=== PATIENT | female | born 1985 | race Caucasian/White ===

== ENCOUNTER → 2017-02-08 | Outpatient (CLI) | payer BC ==
[~2017-02-08] MED LIST: HYDR-3989 PO; IBUP-1547 PO
--- NOTE | 2017-02-08 16:18 | DI ---
Indication: ITS.REASON: Z33.1 state, incidental PROCEDURE: US OB <14 WKS WITH TRANSVAG: Encounter: Initial Age by LMP is 9 weeks and 4 days. This correlates to an NICOL of September 09, 2017. Comparison: None PROCEDURE: US OB <14 WKS WITH TRANSVAG: Technique: Transabdominal and transvaginal pelvic sonographic imaging was performed. Findings: Imaging demonstrates an intrauterine gestational sac without pole or yolk sac. Both ovaries were identified. The left measures 2.9 x 2.8 x 3.3 cm, and the right 2.9 x 2.1 x 2.2 cm. There is a probable corpus luteum in the right ovary and a small cyst or follicle on the left ovary No abnormal adnexal mass. No free fluid. biometry: Mean sac diameter 3.23 cm: 8 weeks and 4 days. Impression: Findings of a spontaneous with an estimated gestational age of 8 weeks and 4 days by ultrasound. No sonographic findings to suggest an ectopic . .
== END ==
LOC: IMA 15:28
PROVIDERS: ATTEND Obstetrics & Gynecology
DX: O03.9 Complete or unspecified spontaneous abortion without complication (principal); Z3A.08 8 weeks gestation of pregnancy

== ENCOUNTER 2017-04-01 06:02 | Day surgery (SDC) | payer BC ==
[~2017-04-01] VITALS: Ht 165.1 cm; Wt 82.1 kg
[~2017-04-01 06:02] MED LIST changes: +BUPIVACAINE 0.25%/EPI 1:200,000 30ml SDV ONE; +FENTANYL 100mcg/2ml INJECTION ONE; +GLYCOPYRROLATE 0.4mg/2ml INJECTION ONE; -HYDR-3989 PO; -IBUP-1547 PO; +LIDOCAINE 2% (20mg/ml) 5ml PF SDV ONE; +ONDANSETRON 4mg/2ml INJECTION ONE; +PREN1TAB73 PO; +PROPOFOL 500mg 50 ML IV ONE
[2017-04-01 06:16] VITALS: BP 103/57; PULSE 52; RESP 13; TEMP 98.7; O2SAT 97; Ht 165.1 cm; Wt 82.1 kg
[2017-04-01 06:30] LABS: BASOPHILS % (AUTO) 0.6 % (0-2); EOSINOPHILS # (AUTO) 0.2 T/MM3 (0-0.5); EOSINOPHILS % (AUTO) 4.5 % (0-4); HCT - HEMATOCRIT 36.3 % (36-46); HGB - HEMOGLOBIN 12.3 GM/DL (12-16); LYMPHOCYTES # (AUTO) 1.4 T/MM3 (1-4.8); LYMPHOCYTES % (AUTO) 38.6 % (23-45); MEAN CORPUSCULAR HGB 29.1 UUG (26-34); MEAN CORPUSCULAR HGB CONC(MCHC 33.9 GM/DL (31-37); MEAN CORPUSCULAR VOLUME 85.8 UM3 (80-100); MEAN PLATELET VOLUME 10.2 UM3 (9.4-12.4); MONOCYTES # (AUTO) 0.3 T/MM3 (0-0.8); MONOCYTES % (AUTO) 8.7 % (0-9.0); NEUTROPHILS #(AUTO)-ABSOLUTE 1.7 T/MM3 (1.8-7.7); NEUTROPHILS % (AUTO) 47.6 % (33-66); RED BLOOD COUNT 4.23 M/MM3 (4.00-5.20); WBC - WHITE BLOOD COUNT 3.6 T/MM3 (4.5-11.0)
[2017-04-01 06:31] LABS: BLOOD, URINE 3+ (NEGATIVE); COLOR,URINE AMBER (YELLOW); LEUKOCYTE ESTERASE ,URINE NEGATIVE (NEGATIVE); NITRITE,URINE NEGATIVE (NEGATIVE)
[2017-04-01 06:33] VITALS: PULSE 56; RESP 14
[2017-04-01 06:42] LABS: BACTERIA,URINE 4+ (NEGATIVE); RBC,URINE TNTC /HPF (0-3); WBC,URINE NONE SEEN /HPF (0-5)
[2017-04-01] MEDS ORDERED: LIDOCAINE 1% (10mg/ml) 2ml SDV INJ ONE (07:00)
[2017-04-01] MEDS ORDERED: LR 1,000 ML IV PRN (07:00)
--- NOTE | 2017-04-01 07:27 | ANESPREOP ---
Anesthesia Record Date and Time DATE: 04/01/17 TIME: 07:26 Pre-Op Diagnosis missed ab Proposed Surgical Procedure DILITATION AND CURETTAGE MISSED AB Allergies: Coded Allergies: No Known Allergies (Unverified , 03/31/17) Ht/Wt/BMI Height: 5 ' 5.00 " Weight: 82.100 kg BMI: 30.1 kg/m2 Vital Signs Date Time Temp Pulse Resp B/P Pulse Ox O2 Delivery O2 Flow Rate FiO2 04/01/17 06:33 56 14 04/01/17 06:16 98.7 103/57 97 Room Air Medications Inpatient Medications Current Medications Medications (Trade) Dose Ordered Sig/Laurie Start Time Stop Time Status Last Admin Dose Admin Lactated Ringer's (Lactated Ringers) 1,000 ml @ 50 mls/hr Q20H PRN 04/01/17 07:00 04/01/17 06:47 50 MLS/HR Pnv95/Ferrous Fumarate/FA ( Tablet) 1 Each Tablet, 1 TAB PO DAILY, ( Reported) Last Taken: on 03/31/171999 Currently on Beta Garo: No Medical/Surgical History Anesthesia PMH: Denies: *Diabetes, Anesthesia Reactions (NO AIRWAY ISSUES), Arthritis, CVA/Stroke/TIA, Cancer, Clotting Problems, Glaucoma, Malignant Hyperthermia, Renal Disease, Seizures, Sleep Apnea, Thyroid Disease Smoking Status: Never smoker Has pt. smoked today?: No Use Chewing Tobacco?: No Second Hand Exposure: No Substance Use Type: does not use Substance last used: unknown Alcohol Intake: none Last Drink: unknown HX of Last Menstrual Period: 2016 Past Surgical History Orthopedic Surgeries: Abdominal Surgeries: Genitourinary Surgeries: Cardiac Surgeries: Endocrine Surgeries: Reproductive Surgeries: Yes - Neurological Surgeries: Ear Surgeries: Nose Surgeries: Throat Surgeries: Other Surgeries: Yes - Anesthesia Adverse Reactions: FOUND none Family Hx of Anesthesia Advers: none Hx of Motion Sickness: Yes Pertinent Findings Laboratory Tests 04/01/17 06:24 EKG Rhythm: Sinus Rhythm Physical Exam Respiratory: Bilat breath sounds equal, Lungs clear Cardiovascular: FOUND Regular rate, rhythm, FOUND No murmur Airway Assessment Mallampati Score: I TMD: 3 Fingerbreadths Neck Extension: Good Overall Assessment: No Airway Concerns ASA: 1 Plan Anesthesia Plan: TIVA Discussion Discussed risks/options/alternatives of anesthesia and questions answered. Patient consents. Nursing pain assessment noted. Present: Spouse Attestation Statement Prior to the delivery of any anesthetic medication, I examined the patient, developed the plan, obtained the patient's consent and discussed the risk and benefits of the procedure with the patient/guardian. ANEESH STRICKLAND CRNA April 01, 2017 07:27
[2017-04-01] MEDS ORDERED: MIDAZOLAM 2mg/2ml INJECTION ONE (07:33)
[2017-04-01] MEDS ORDERED: ONDANSETRON 4mg/2ml INJECTION ONE (07:34)
[2017-04-01] MEDS ORDERED: LACRI-LUBE EYE OINT 3.5 G TUBE ONE (07:34)
[2017-04-01] MEDS ORDERED: GLYCOPYRROLATE 0.4mg/2ml INJECTION ONE (07:34)
[2017-04-01] MEDS ORDERED: FENTANYL 100mcg/2ml INJECTION ONE ×2 (07:35→07:44)
[2017-04-01] MEDS ORDERED: VECURONIUM 10mg/10ml INJECTION IV ONE (07:35)
[2017-04-01] MEDS ORDERED: LIDOCAINE 2% (20mg/ml) 5ml PF SDV ONE (07:35)
[2017-04-01] MEDS ORDERED: METOCLOPRAMIDE 10mg/2ml INJECTION IV PRN (08:00)
[2017-04-01] MEDS ORDERED: MORPHINE SULFATE 4 MG SYRINGE IV PRN (08:00)
[2017-04-01] MEDS ORDERED: ONDANSETRON 4mg/2ml INJECTION IV PRN (08:00)
[2017-04-01] MEDS ORDERED: FENTANYL 100mcg/2ml INJECTION IV PRN (08:00)
[2017-04-01] MEDS ORDERED: HYDROCODONE/APAP 5 mg/325 mg TABLET PO PRN (08:00)
--- NOTE | 2017-04-01 08:00 | GYNOPNOTE1 ---
[employer] Postoperative Note Date of Operation: 04/01/17 Preoperative Diagnosis: Incomplete Postoperative Diagnosis: Same as Preoperative Procedure: Suction D&C Surgeon: Anh Nixon MD Anesthesia Provider: Brayden Joshi CRNA Anesthesia Type: TIVA Comments EBL minimal ANH NIXON MD April 01, 2017 08:00
[2017-04-01] MEDS ORDERED: KETOROLAC 30mg/ml INJECTION ONE (08:03)
[2017-04-01 08:07] VITALS: BP 99/54; PULSE 82; RESP 16; TEMP 97.6; O2SAT 98
[2017-04-01 08:22] VITALS: BP 99/56; PULSE 81; RESP 16; O2SAT 94
--- NOTE | 2017-04-01 08:28 | ANESPO ---
Post-Op Note Date 04/01/17 Time: 08:27 Status Pt Participated in Evaluation: Pt participated in person Vital Signs Date Time Temp Pulse Resp B/P Pulse Ox O2 Delivery O2 Flow Rate FiO2 04/01/17 08:22 81 16 99/56 94 Room Air 04/01/17 08:07 97.6 5.00 Respiratory Function: Airway patent, Regular respirations Cardiovascular Function: Regular pulse Mental Status: Alert/oriented Pain Level Intensity: 0 (0) Hydration: Taking po fluids, IV infusing Complications during Recovery None apparent Post-Anesthesia Notes pt. inraj. well Follow-Up Instructions Instructions Per Surgeon Additional Information none ZACH AVENDANO CRNA April 01, 2017 08:28
[2017-04-01 08:37] VITALS: BP 97/55; PULSE 70; RESP 16; TEMP 97.1; O2SAT 95
[2017-04-01 08:52] VITALS: BP 99/57; PULSE 54; RESP 14; O2SAT 98
--- NOTE | 2017-04-01 11:30 | OPNOTEF ---
DATE OF PROCEDURE 04/01/2017 PREOPERATIVE DIAGNOSIS First trimester incomplete . POSTOPERATIVE DIAGNOSIS First trimester incomplete . PROCEDURE Suction D&C. SURGEON Anh Lilly MD ANESTHESIA TIVA - Brayden Joshi CRNA EBL: Minimal DESCRIPTION OF PROCEDURE Mrs. Judd was brought to the OR and placed on the OR table in a comfortable supine position. She was given IV analgesia with good airway control. She was then placed in the standard lithotomy position and I performed a bimanual exam. The perineum and vagina were prepped and draped in the usual sterile fashion. The bladder was drained with in-and-out catheter. The cervix was visualized with a freeway speculum. It was grasped with an Allis clamp. The uterine cavity sounded to a depth of 12 cm. The cervix was then serially dilated until the 10 curved Wolof suction curette would fit. First we sharply curetted in all four quadrants. We then tested the suction device and inserted it. I made about six passes before all the tissue appeared to be clear. I then introduced polyp forceps in the uterine cavity. There was no more apparent tissue. We watched carefully for hemostasis. It remained under good control. We then removed the speculum and returned Ms. Judd to the supine position. She was awakened and transferred to recovery in stable condition. DEVON
== END 2017-04-01 09:06 | disposition home or self-care (01) ==
LOC: SCU 06:02
PROVIDERS: ATTEND Obstetrics & Gynecology
DX: O03.4 Incomplete spontaneous abortion without complication (principal)
CPT/HCPCS: 59812; 81001; 85025; J0330; J1885; J2250; J2405; J2704; J3010; J7120; S0020

== ENCOUNTER 2018-03-24 05:36 | Inpatient (IN) ==
--- OUTSIDE RECORDS SUMMARY | 2018-03-24 05:42 | External Medical Summary | Continuity of Care Document ---
:1985 Author Organization [facility] Address [address] [place], [place] [id number] Phone Care Team Providers Name Role Phone Tata Don DO Unavailable Unavailable Allergies, Adverse Reactions, Alerts Substance Reaction Severity Status No Known Drug Allergies Unknown Active Medications Medication Instructions Dosage Effective Dates Status Comments (start - stop) Vitamin take 1 tablet by Not Available - Active tablet oral route every day Tums 200 mg - Active calcium (500 mg) chewable tablet Prilosec OTC 20 mg take 1 by Oral route Not Available - Active tablet,delayed every day release Problems Condition Effective Dates (start - stop) Clinical Status Encntr for f/u exam aft trtmt for cond - ot osman allen Encntr for obstetrician gynecologist exam (general) - (routine) w/o abn findings Suprvsn of preg w poor reprodctv or - obstet hx, third tri Previous Low Transverse - Encounter for suprvsn of normal - , third trimester 31 weeks gestation of - Encounter for test, result - unknown 9 weeks gestation of - Suprvsn of preg w poor reprodctv or - obstet hx, second tri Previous Low Transverse - 15 weeks gestation of - Suprvsn of preg w poor reprodctv or - obstet hx, second tri Previous Low Transverse - Encounter for suprvsn of normal - , second trimester 23 weeks gestation of - Pain in right hip - Suprvsn of preg w poor reprodctv or - obstet hx, third tri Previous Low Transverse - Encounter for suprvsn of normal - , third trimester 29 weeks gestation of - Blighted ovum and nonhydatidiform mole - Encounter for test, result - unknown 10 weeks gestation of - Blighted ovum and nonhydatidiform mole - Blighted ovum and nonhydatidiform mole - Blighted ovum and nonhydatidiform mole Incomplete spontaneous with other complications Incomplete spontaneous with - other complications Incomplete spontaneous with other complications Incomplete spontaneous with other complications Incomplete spontaneous - without complication Incomplete spontaneous without complication Suprvsn of preg w poor reprodctv or - obstet hx, first tri Previous Low Transverse - Encntr screen for infections w sexl - mode of transmiss Encounter for screening for oth - infec/parastc diseases Encounter for suprvsn of normal - , first trimester Encounter for screening of - mother Less than 8 weeks gestation of - Suprvsn of preg w poor reprodctv or - obstet hx, second tri 19 weeks gestation of - Suprvsn of preg w poor reprodctv or - obstet hx, second tri Previous Low Transverse - 27 weeks gestation of - Suprvsn of preg w poor reprodctv or - obstet hx, second tri Previous Low Transverse - Encounter for suprvsn of normal - , second trimester 19 weeks gestation of - Suprvsn of preg w poor reprodctv or - obstet hx, third tri Previous Low Transverse - 33 weeks gestation of - Suprvsn of preg w poor reprodctv or - obstet hx, third tri Previous Low Transverse - Encounter for suprvsn of normal - , third trimester 33 weeks gestation of - Threatened Threatened Previous Low Transverse - Encounter for suprvsn of normal - , first trimester 11 weeks gestation of - Previous Low Transverse - state, incidental - 10 weeks gestation of - state, incidental - state, incidental - 9 weeks gestation of - Active Irregular Bleeding Active Active Procedures Procedure Date OB Visit No Charge Results Test Name Date and Time Measure Units Reference Range Abnormal Flag Comments Unknown Advance Directives Directive Yes / No Effective Date File Name Unknown Encounters Encounter Practice Location Reason(s) Diagnoses Date Provider Care Team Description For Visit Members Derek [place] Suprvsn of preg w Apr-0 Maxx Referring In Womens poor reprodctv or 2-201 Anh. Provider: ervin Garridoet hx, third 8 700 Anh PO Box triPrevious Low Medical Maxx L, 1522, Transverse Center [address] [place], C-SectionEnc[address]te Dr [facility] AMAN, r for suprvsn of 120, [place] [id number], normal , Ivan Abdullahi 120, [place] third [email or web address] Ivan [place], tel:2 weeks gestation [id number] [place], [id number] of , [place]. [id number]. tel: tel: [phone] [facility] Suprvsn of preg w Apr-0 Maxx Referring In Womens Ultrasound poor reprodctv or 2-201 Anh. Provider: Health KIMBER, obstet hx, third 8 700 Anh PO Box triPrevious Low Medical Maxx L, 1522, Transverse Center 700 [place], [id number] weeks Dr [facility], gestation of 120, Center [id number], [place], Abdullahi 120, [place] AMAN Ivan, tel:[phone] [place], , [place]. [id number]. tel: tel: [phone] [facility] Suprvsn of preg w Mar-2 Maxx Referring In Womens poor reprodctv or 1-201 Anh. Provider: Health PA, obstet hx, third 8 700 Anh PO Box triPrevious Low Medical Maxx L, 1522, Transverse [facility] 700 [place], [facility] , [facility], r for suprvsn of 120, Center [id number], normal , [place], [facility] 120, [place] third [id number] AMANIvan, tel:+ weeks gestation [phone] [place], of , [place]. [id number]. tel: tel: [phone] [facility] Pain in right Mar-0 Maxx Referring In Womens hipSuprvsn of 7-201 Anh. Provider: Health PA, preg w poor 8 700 Anh PO Box reprodctv or Medical Maxx L, 1522, obstet hx, third Center 700 [place], triPrevious Low , [facility], Transverse 120, [place] [id number], C-SectionEncounte [facility] 120, [place] r for suprvsn of KSIvan, tel: normal , [id number] [place], third [id number] , [place]. [id number]. weeks gestation tel: tel: of [phone] [facility] Suprvsn of preg w Feb-2 Maxx Referring In Womens poor reprodctv or 1-201 Anh. Provider: Health PA, obstet hx, second 8 700 Anh PO Box triPrevious Low Medical Maxx L, 1522, [facility] 700 [place], [id number] weeks , [facility] AMAN, gestation of 120, Center [id number], [place], Abdullahi 120, [place] Ivan [place], tel:[phone] [place], , [place]. [id number]. tel: tel:[phone] [facility] Suprvsn of preg w Nov- Maxx Referring In Womens poor reprodctv or 4-201 Anh. Provider: Danika QUIROGA obstet hx, second 8 700 Anh PO Box triPrevious Low Medical Maxx L, 1522, [facility] 700 [place], C-SectionEncmigdalia [place], [facility], r for suprvsn of 120, Center [id number], normal , Ivan Abdullahi 120, [place] second Ivan [place], tel:+ [id number] weeks [id number] [place], gestation of , [place]. [id number]. tel: tel:[phone] [facility] Suprvsn of preg w Oct- Maxx Referring In Womens poor reprodctv or 7-201 Anh. Provider: Danika QUIROGA obstet hx, second 7 700 Anh PO Box triPrevious Low Medical Maxx L, 1522, Transverse [facility] 700 [place], C-SectionEnclorie , [facility], r for suprvsn of 120, Center [id number], normal , Ivan Abdullahi 120, [place] second Ivan [place], tel: [id number] weeks [id number] [place], gestation of , [place]. [id number]. tel: tel:[phone] [facility] Suprvsn of preg w Oct- Maxx Referring In Womens Ultrasound poor reprodctv or 7-201 Anh. Provider: Danika QUIROGA obstet hx, second 7 700 Anh PO Box tri19 weeks Medical Maxx L, 1522, gestation of Center 700 [place], , [facility], 120, Center [id number], Ivan [facility] 120, [place] Ivan [place], tel:[phone] [place], , [place]. [id number]. tel: tel:[phone] [facility] Suprvsn of preg w Sep- Maxx Referring In Womens poor reprodctv or 9-201 Anh. Provider: Health PA, obstet hx, second 7 700 Anh PO Box triPrevious Low Medical Maxx L, 1522, [facility] Center [address] [place] [address], [id number] weeks , [facility], gestation of 120, Center , [facility] 120, [place] Ivan [place], tel:+ [phone] [place], , [place]. [id number]. tel: tel:[phone] [facility] Previous Low Maxx Referring In Womens Transverse -201 Anh. Provider: Health KIMBER, C-SectionEncounte 7 700 Anh PO Box r for suprvsn of Medical Maxx L, 1522, normal , Center [address] [place] [address], first [id number] , [facility], weeks gestation 120, Center [id number], of [facility] 120, [place] Ivan [place], tel:[phone] [place], , [place]. [id number]. tel: tel:[phone] Derek [place] Suprvsn of preg w [facility] Referring In Womens poor reprodctv or -201 Anh. Provider: Danika QUIROGA, obstet hx, first 7 700 Anh PO Box triPrevious Low Medical Maxx L, 1522, Transverse Center [address] [place] [address], C-SectionEncntr , [facility], screen for 120, Center [id number], infections w sexl [facility] 120, [place] mode of Ivan [place], tel: transmissEncounte [phone] [place], r for screening , [place]. [id number]. for oth tel: tel:[phone] infec/parastc [phone] diseasesEncounter for suprvsn of normal , first trimesterEncounte r for screening of motherLess than 8 weeks gestation of [facility] Incomplete Maxx Referring In Womens spontaneous -201 Anh. Provider: Health KIMBER, without 7 700 Anh PO Box complication Medical Maxx L, 1522, Center [facility] [place], Dr [facility], 120, [place] [id number], [facility], [place] Ivan [place], tel:+ [phone] [place], , [place]. [id number]. tel: tel:+ [phone] [facility] Incomplete Aug-0 Maxx In Womens spontaneous -201 Anh. Danika QUIROGA, without 7 700 PO Box complication Medical 1522, [place] Dr Chris, [facility] [place], 120, [id number], [place], [place], tel:[phone] , [place]. tel: [phone] [facility] Threatened Aug-0 Maxx Referring In Womens -201 Anh. Provider: Danika QUIROGA, 7 700 Anh PO Box Medical Maxx L, 1522, Center [address], [facility] [place], 120, [place] [id number], Ivan [facility] 120, Ivan [place], tel:[phone] [place], , [place]. [id number]. tel: tel: [phone] [facility] Threatened Aug-0 Maxx In Womens 4-201 Anh. Danika QUIROGA, 7 700 PO Box Medical 1522, [place] Dr Chris, [facility], 120, [id number], [place], [place], tel:[phone] , [place]. tel: [phone] [facility] Encntr for f/u Irving-0 Maxx Referring In Womens exam aft trtmt - Anh. Provider: Danika QUIROGA, for cond oth than 7 700 Anh PO Box malig neoplm Medical Maxx L, 1522, Center [address], [facility] [place], 120, [place] [id number], Ivan [facility] 120, Ivan [place], tel:[phone] [place], , [place]. [id number]. tel: tel:[phone] [facility] Incomplete March- Maxx Referring In Womens spontaneous -201 Anh. Provider: Danika QUIROGA, with 7 700 Anh PO Box other Medical Maxx L, 1522, complications Center [facility] Dr Chris, [facility] Medical [place], 120, Center [id number], Ivan, [facility] 120, [place] KSIvan, tel:[phone] [place], , [place]. [id number]. tel: tel:[phone] [facility] Incomplete March- Maxx Referring In Womens spontaneous 7-201 Anh. Provider: Danika QUIROGA, with 7 700 Anh PO Box other Medical Maxx L, 1522, complications Center [facility] Dr Chris, [facility] [place], 120, Center [id number], Ivan, [facility] 120, [place] KSIvan, tel:[phone] [place], , [place]. [id number]. tel: tel:[phone] [facility] Incomplete March-1 Maxx Referring In Womens Ultrasound spontaneous 7-201 Anh. Provider: Danika QUIROGA, with 7 700 Anh PO Box other Medical Maxx L, 1522, complications Center [facility] Dr Chris, [facility] [place], 120, Center [id number], Ivan, [facility] 120, [place] Ivan [place], tel:[phone] [place], , [place]. [id number]. tel: tel:[phone] [facility] Incomplete March-1 Maxx Referring In Womens spontaneous 6-201 Anh. Provider: Danika QUIROGA, with 7 700 Anh PO Box other Medical Maxx L, 1522, complications Center [facility] Dr Chris, [facility] [place], 120, Center [id number], Ivan, [facility] 120, [place] Ivan [place], tel:[phone] [place], , [place]. [id number]. tel: tel:[phone] [facility] Blighted ovum and Apr-2 Maxx Referring In Womens nonhydatidiform 4-201 Anh. Provider: Danika QUIROGA, mole 7 700 Anh PO Box Medical Maxx L, 1522, Center [address], [facility] [place], 120, Center [id number], Ivan, Abdullah[place] 120, [place] Ivan [place], tel:[phone] [place], , [place]. [id number]. tel: tel:+ [phone] [facility] Blighted ovum and Apr-1 Maxx Referring In Womens nonhydatidiform 3-201 Anh. Provider: Danika QUIROGA [facility] 7 700 Anh PO Box Medical Maxx L, 1522, Center [facility] Dr Chris, [facility] Sammy [place], 120, Center [id number], Ivan, [facility] 120, [place] Ivan [place], tel:[phone] [place], , [place]. [id number]. tel: tel:[phone] [facility] Blighted ovum and Apr-0 Maxx In Womens nonhydatidiform 7-201 Anh. Danika QUIROGA [facility] 7 700 PO Box Medical 1522, [place] Dr Chris [facility], 120, , [place], [facility], tel:[phone] , [place]. tel: [phone] [facility] Blighted ovum and Apr-0 Maxx Referring In Womens nonhydatidiform 6-201 Anh. Provider: Kenyetta Garridoounter for 7 700 Anh PO Box test, Medical Maxx L, 1522, result [id number] [place] [address], weeks gestation Dr [facility] [place], of 120, [place] [id number], Ivan [facility] , [place] Ivan [place], tel:[phone] [place], , [place]. [id number]. tel: tel:[phone] [facility] Previous Low Apr-0 Maxx Referring In Womens Ultrasound Transverse 6-201 Anh. Provider: Danika QUIROGA, C-Section 7 700 Anh PO Box state, Medical Maxx L, 1522, [id number] [place], [place] [address]ta, weeks gestation Dr [facility], of 120, Center [id number], Ivan [facility] 120, [place] Ivan [place], tel:[phone] [place], , [place]. [id number]. tel: tel:[phone] Derek [place] state, Mar-2 Maxx Referring In Womens incidental 9-201 Anh. Provider: Danika QUIROGA, 7 700 Anh PO Box Medical Maxx L, 1522, Center [address] Dr Chris, [facility] Medical [place], 120, Center [id number], [place], [facility] 120, [place] Ivan [place], tel: [phone] [place], , [place]. [id number]. tel: tel:[phone] Derek [place] state, Mar-2 Carr Referring In Womens incidental9 weeks 8-201 Mary. Provider: Danika QUIROGA, gestation of 7 700 Anh PO Box Medical Maxx L, 1522, Center [address], [facility], 120, [place] [id number], [facility] 120, [place] Ivan [place], tel:[phone] [place], , [place]. [id number]. tel: tel:[phone] Derek [place] Encounter for Mar-2 Maxx Referring In Womens test, 7-201 Anh. Provider: Danika QUIROGA, result unknown9 7 700 Ahn PO Box weeks gestation Medical Maxx L, 1522, of Center [address], [facility], 120, [place] [id number], [facility] 120, [place] Ivan [place], tel:[phone] [place], , [place]. [id number]. tel: tel:[phone] Derek [place] Encntr for obstetrician gynecologist Edward-0 Maxx Referring In Womens exam (general) 9-201 Anh. Provider: Danika QUIROGA, (routine) w/o abn 6 700 Anh PO Box findings Sammy Lilly L, 1522, Center [address], [facility], 120, [place] [id number], Ivan, [facility] 120, [place] Ivan [place], tel:[phone] [place], , [place]. [id number]. tel: tel:[phone] Derek [place] Dec- Maxx Referring In Womens 8-201 Anh. Provider: Health PA, 5 700 Anh PO Box Medical Maxx L, 1522, Center [address] Dr Chris, [facility] [place], 120, [place] [id number], [facility] 120, AMAN, Ivan, tel:[phone] [place], , . [id number]. tel: tel:[phone] Derek [place] Aug- Maxx Referring In Womens 8-201 Anh. Provider: Health PA, 4 700 Anh PO Box Medical Maxx L, 1522, Center [address] Dr Chris, [facility] [place], 120, [place] [id number], [facility] 120, AMAN, Ivan, tel:[phone] [place], , [place]. [id number]. tel: tel:[phone] Derek [place] Sep-0 Ibeth In Womens 5-201 Janee. Health PA, 4 700 Box Medical 1522, Center Dr Chris, [facility] [place], 120, [id number], [place], [facility], tel:[phone] , [place]. tel: [phone] Family History Family Member Diagnosis Age At Onset No family history of Kidney Disease Paternal Grandmother Lung Disease No family history of Osteoporosis No family history of Stroke No family history of Breast Cancer Paternal Grandfather Cardiovascular Disease No family history of Hypertension No family history of Thyroid Disorder No family history of Venous Thrombosis No family history of Colon Cancer No family history of Ovarian Cancer No family history of Epilepsy No family history of Pulmonary Embolism Father Aneurysm No family history of Diabetes Immunizations Vaccine Date Status Comments Tdap completed Source: New Immunization Record Influenza, injectable, completed Source: New Immunization Record quadrivalent, preservative free, 3 yrs or older Payers Payer name Insurance type Covered libertarian ID Authorization(s) [employer] [place] [id number] [employer] [place] [id number] [employer] [place] [id number] Social History Type Description Quantity Date Captured Alcohol Use Details Caffeine Use Details Unknown Tobacco Use Status Unknown Smoking Status Never smoker Vital Signs Date / Height Weight BMI Pulse Blood Temperature Respiratory Body Head BMI Time: Rate Pressure Rate Surface Circumference percentile Area Unknown Chief Complaint And Reason For Visit Unknown Chief Complaint And Reason For Visit Reason For Referral Reason For Referral Unknown Plan Of Care Date Type Action Status Appointment Leticia Judd BOOKED Appointment Leticia Judd - [facility] - [facility]/S, PPTL BOOKED Future Order: Radiology Order Transvaginal Pelvic Ultrasound Ordered ([id number]) Future Order: Radiology Order Complete OB Ultrasound > 14 Ordered Weeks ([id number]) Future Order: Radiology Order Ultrasound OB Follow-up ([id number]) Ordered Future Order: Radiology Order Ultrasound < 14 wks ([id number]) Ordered Date Type Problem Goal Intervention Status Start Date Unknown. History Of Present Illness Encounter Date Complaint History Of Present Illness This patient has no known history of present illness Functional Status Encounter Date Functional Assessment Cognitive Assessment Unknown Medications Administered Medication Instructions Dosage Effective Dates (start - stop) Status Comments Drug Treatment Unknown Instructions Date Instruction Additional Information HIV and other routine tests risk factors identified by history anticipated course of care nutrition and weight gain counseling, special diet toxoplasmosis precautions (cats / raw meat) sexual activity exercise indications for ultrasound influenza vaccine environmental / work hazards travel tobacco (ask, advise, assess, assist and arrange) alcohol illicit / recreational drugs use of any medications (including supplements, vitamins, herbs, OTC drugs) smoking counseling domestic violence seat belt use childbirth classes / hospital facilities hospital registration genetic testing risks Zika virus assessment & precautions Giving encouragement to exercise Related to Body mass index 31.0-31.9 Giving encouragement to exercise Related to Body mass index 31.0-31.9 HIV and other routine tests risk factors identified by history anticipated course of care nutrition and weight gain counseling, special diet toxoplasmosis precautions (cats / raw meat) sexual activity exercise indications for ultrasound influenza vaccine environmental / work hazards travel use of any medications (including supplements, vitamins, herbs, OTC drugs) domestic violence seat belt use childbirth classes / hospital facilities hospital registration genetic testing risks Giving encouragement to exercise Related to Body mass index 31.0-31.9
--- OUTSIDE RECORDS SUMMARY | 2018-03-24 05:42 | External Medical Summary | Continuity of Care Document ---
:1985 Author Organization [facility] Address [address] [place], [place] [id number] Phone Care Team Providers Name Role Phone Tata Don DO Unavailable Unavailable Allergies, Adverse Reactions, Alerts Substance Reaction Severity Status No Known Drug Allergies Unknown Active Medications Medication Instructions Dosage Effective Dates Status Comments (start - stop) amoxicillin 500 mg take 1 capsule by 500 MG - Active capsule oral route every 8 hours Vitamin take 1 tablet by Not Available - Active tablet oral route every day Tums 200 mg calcium - Active (500 mg) chewable tablet Problems Condition Effective Dates (start - stop) Clinical Status Encntr for f/u exam aft trtmt for cond - ot osman allen 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) - (routine) w/o abn findings Suprvsn of preg w poor reprodctv or - obstet hx, second tri 19 weeks gestation of - Encounter for test, [...] second trimester 19 weeks gestation of - Blighted ovum and [...] Less than 8 weeks gestation of - Threatened Threatened Previous Low Transverse - Encounter for suprvsn of normal - , first trimester 11 weeks gestation of - Previous Low Transverse - state, incidental - 10 weeks gestation of - state, incidental - state, incidental - 9 weeks gestation of - Active Irregular Bleeding Active Active Procedures Procedure Date Ultrasound exam of preg uterus, complete Results Test Name Date and Time Measure Units Reference Range Abnormal Flag Comments Unknown Advance Directives Directive Yes / No Effective Date File Name Unknown Encounters Encounter Practice Location Reason(s) Diagnoses Date Provider Care Team Description For Visit Members Derek [place] Suprvsn of preg w Maxx Referring In Womens poor reprodctv or 7 Anh. Provider: Health KIMBER, obstet hx, second 7 700 Anh PO Box triPrevious Low Medical Maxx L, 1522, Transverse Center [address], C-SectionWalter Greene, [facility] [place], r for suprvsn of 120, Center [id number], normal , [place], Abdullahi 120, [place] second Ivan [place], tel:+ [id number] weeks [id number] [place], gestation of , [place]. [id number]. tel: tel:[phone] [facility] Suprvsn of preg w Dec-2 Maxx Referring In Womens Ultrasound poor reprodctv or 7-201 Anh. Provider: Danika QUIROGA, obstet hx, second 7 700 Anh PO Box tri19 weeks Medical Maxx L, 1522, gestation of Center [address], , [facility], 120, Center [id number], [place], [facility] 120, [place], tel:[phone] [place], , [place]. [id number]. tel: tel:[phone] Derek [place] Suprvsn of preg w Nov-2 Maxx Referring In Womens poor reprodctv or 9-201 Anh. Provider: Danika QUIROGA obstet hx, second 7 700 Anh PO Box triPrevious Low Medical Maxx L, 1522, Transverse Center [address] [place] [address], [id number] weeks Dr [facility], gestation of 120, Center [id number], Ivan [facility] 120, [place] AMANI[place], tel:[phone] [place], , [place]. [id number]. tel: tel:[phone] Derek [place] Previous Low Nov-0 Maxx Referring In Womens Transverse 1-201 Anh. Provider: Danika QUIROGA, C-SectionEncounte 7 700 Anh PO Box r for suprvsn of Medical Maxx L, 1522, normal , [address], first Dr [facility], weeks gestation 120, Center [id number], of [place], [facility] 120, [place], tel:+ [phone] [place], , [place]. [id number]. tel: tel:[phone] Derek [place] Suprvsn of preg w Oct-1 Maxx Referring In Womens poor reprodctv or 1-201 Anh. Provider: Health PA, obstet hx, first 7 700 Anh PO Box triPrevious Low Medical Maxx L, 1522, Transverse Center [facility] Chris, C-SectionEncntr , [facility], screen for 120, Cre[place] [id number], [facility], [place] mode of AMAN, [place], tel:+ transmissEncounte [phone] [place], r for screening , [place]. [id number]. for oth tel: tel:[phone] infec/parastc [phone] diseasesEncounter for suprvsn of normal , first trimesterEncounte r for screening of motherLess than 8 weeks gestation of [facility] Incomplete Aug-2 Maxx Referring In Womens spontaneous - Anh. Provider: Danika QUIROGA, without 7 700 Anh PO Box complication Medical Maxx L, 1522, Center [facility] Dr Chris, [facility], 120, [place] [id number], [facility], [place], tel: [phone] [place], , [place]. [id number]. tel: tel: [phone] [facility] Incomplete Aug-0 Maxx In Womens spontaneous 9- Anh. Danika QUIROGA, without 7 700 PO Box complication Medical 1522, Cre[address] Dr Chris, [facility], 120, [id number], [place], [place], tel: [phone] , [place]. tel: [phone] Derek [place] Threatened Aug-0 Maxx Referring In Womens 7-201 Anh. Provider: Danika QUIROGA, 7 700 Anh PO Box Medical Maxx L, 1522, Center [facility] Dr Chris, [facility], 120, [place] [id number], Ivan [facility] 120, [place], tel:[phone] [place], , [place]. [id number]. tel: tel:[phone] Derek [place] Threatened Aug-0 Maxx In Womens 4-201 Anh. Danika QUIROGA, 7 700 PO Box Medical 1522, Center Dr Chris, [facility] [place], 120, [id number], [place], [place], tel:[phone] , [place]. tel: [phone] [facility] Encntr for f/u May-0 Maxx Referring In Womens exam aft trtmt 5-201 Anh. Provider: Danika QUIROGA, for cond oth than 7 700 Anh PO Box stanley allen Medical Maxx L, 1522, Center [address], [facility] [place], 120, Center [id number], Ivan, [facility] 120, [place], tel:[phone] [place], , [place]. [id number]. tel: tel:[phone] [facility] Incomplete March-1 Maxx Referring In Womens spontaneous 9-201 Anh. Provider: Danika QUIROGA, with 7 700 Anh PO Box other Medical Maxx L, 1522, complications Center [facility] Dr Chris, [facility] [place], 120, Center [id number], Ivan, [facility] 120, [place], tel:[phone] [place], , [place]. [id number]. tel: tel:[phone] [facility] Incomplete March-1 Maxx Referring In Womens spontaneous 7-201 Anh. Provider: Danika QUIROGA, with 7 700 Anh PO Box other Medical Maxx L, 1522, complications Center [facility] Dr Chris, [facility] [place], 120, Center [id number], Ivan, [facility] 120, [place], tel:[phone] [place], , [place]. [id number]. tel: tel:[phone] Derek [place] Incomplete May-1 Maxx Referring In Womens Ultrasound spontaneous 7-201 Anh. Provider: Health KIMBER, with 7 700 Anh PO Box other Medical Maxx L, 1522, complications Center [facility] Dr Chris, [facility] [place], 120, Center [id number], Ivan, [facility] 120, [place], tel:[phone] [place], , [place]. [id number]. tel: tel: [phone] Associates [facility] Incomplete March- Maxx Referring In Womens spontaneous 6-201 Anh. Provider: Danika QUIROGA, with 7 700 Anh PO Box other Medical Maxx L, 1522, complications Center [facility] Dr Chris, [facility] [place], 120, [place] [id number], [facility] 120, [place], tel: [phone] [place], , [place]. [id number]. tel: tel: [phone] Associates [facility] Blighted ovum and Apr-2 Maxx Referring In Womens nonhydatidiform 4-201 Anh. Provider: Danika QUIROGA, mole 7 700 Anh PO Box Medical Maxx L, 1522, Center [facility] Dr Chris, [facility], 120, [place] [id number], [facility] 120, [place], tel:[phone] [place], , [place]. [id number]. tel: tel: [phone] [facility] Blighted ovum and Apr-1 Maxx Referring In Womens nonhydatidiform 3-201 Anh. Provider: Danika QUIROGA mole 7 700 Anh PO Box Medical Maxx L, 1522, Center [facility] Dr Chris, [facility], 120, [place] [id number], [facility] 120, [place], tel:[phone] [place], , [place]. [id number]. tel: tel: [phone] [facility] Blighted ovum and Apr-0 Maxx In Womens nonhydatidiform 7-201 Anh. Danika QUIROGA, mole 7 700 PO Box Medical 1522, [address] Dr Chris, [facility] [place], 120, [id number], Ivan, [place], tel:[phone] , [place]. tel: [phone] [facility] Blighted ovum and Apr-0 Maxx Referring In Womens nonhydatidiform 6-201 Anh. Provider: Danika QUIROGA, moleEncounter for 7 700 Anh PO Box test, Medical Maxx L, 1522, result [id number] Center [address], weeks gestation Abdullahi [place], of 120, Center [id number], Ivan [facility] 120, [place], tel:[phone] [place], , [place]. [id number]. tel: tel:[phone] Derek [place] Previous Low Apr-0 Maxx Referring In Womens Ultrasound Transverse 6-201 Anh. Provider: Danika QUIROGA, C-Section 7 700 Anh PO Box state, Medical Maxx L, 1522, [email or web address] Center [address], weeks gestation Abdullahi Greene, of 120, Center [id number], Ivan [facility] 120, [place], tel:[phone] [place], , [place]. [id number]. tel: tel:[phone] Derek [place] state, Mar-2 Maxx Referring In Womens incidental 9-201 Anh. Provider: Danika QUIROGA, 7 700 Anh PO Box Medical Maxx L, 1522, Center [facility] [address] [facility] [place], 120, Center [id number], [facility] 120, [place], tel:[phone] [place], , [place]. [id number]. tel: tel:[phone] Derek [place] state, Mar-2 Carr Referring In Womens incidental9 weeks 8-201 Mary. Provider: Danika QUIROGA, gestation of 7 700 Anh PO Box Medical Maxx Silveira, 1522, Center [address] [facility] [place], 120, Center [id number], Ivan [facility] 120, [place], tel:[phone] [place], , [place]. [id number]. tel: tel:[phone] Derek [place] Encounter for Mar-2 Maxx Referring In Womens test, 7-201 Anh. Provider: Danika QUIROGA, result unknown9 7 700 Anh PO Box weeks gestation Medical Maxx L, 1522, of Center [address], [facility] [place], 120, Center [id number], Ivan [facility] 120, [place], tel:[phone] [place], , [place]. [id number]. 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 Provider: Danika QUIROGA, (routine) w/o abn 6 700 Anh PO Box findings Medical Maxx L, 1522, Center [address], [facility] [place], 120, Center [id number], Ivan [facility] 120, [place], tel:[phone] [place], , [place]. [id number]. tel: tel:[phone] Derek [place] Dec- Maxx Referring In Womens 8-201 Anh. Provider: Danika QUIROGA, 5 700 Anh PO Box Medical Maxx L, 1522, Center [address], [facility] [place], 120, Center [id number], Ivan [facility] 120, [place], tel:[phone] [place], , [place]. [id number]. tel: tel:[phone] Derek [place] Aug- Maxx Referring In Womens 8-201 Anh. Provider: Danika QUIROGA, 4 700 Anh PO Box Medical Maxx L, 1522, Center [address], [facility] [place], 120, Center [id number], Ivan [facility] 120, [place], tel:[phone] [place], , [place]. [id number]. tel: tel:[phone] Derek [place] Sep-0 Ibeth In Womens 5-201 Janee. Danika QUIROGA, 4 700 PO Box Medical 1522, Center Dr Chris, [facility] [place], 120, [id number], [facility], tel:[phone] , . tel: [phone] Family History Family Member Diagnosis Age At [...] older Payers Payer name Insurance type Covered alliance party ID Authorization(s) [employer] [place] [id number] [employer] [place] [id number] [employer] [place] [id number] Social History Type Description Quantity Date Captured Unknown Vital Signs Date / Height Weight BMI Pulse Blood Temperature Respiratory Body Head BMI Time: Rate Pressure Rate Surface Circumference percentile Area Unknown Chief Complaint And Reason For Visit Unknown Chief Complaint And Reason For Visit Reason For Referral Reason For Referral Unknown Plan Of Care Date Type Action Status Appointment Leticia Judd BOOKED Future Order: Radiology Order Complete OB Ultrasound > 14 Ordered Weeks ([id number]) Future Order: Radiology Order Transvaginal Pelvic Ultrasound Ordered ([id number]) Future Order: Radiology Order Ultrasound < 14 wks ([id number]) Ordered Date Type Problem Goal Intervention Status [...]
--- OUTSIDE RECORDS SUMMARY | 2018-03-24 05:42 | External Medical Summary | Continuity of Care Document ---
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 (general) - (routine) w/o abn findings Suprvsn of preg w poor reprodctv or - obstet hx, third tri Previous Low Transverse - 33 weeks gestation of - Encounter for test, [...] hx, third tri Previous Low Transverse - 35 weeks gestation of - Pain in right [...] third trimester 31 weeks gestation of - Suprvsn of preg [...] Irregular Bleeding Active Active Procedures Procedure Date Ultrasnd preg uterus, flwup/repeat Results Test Name Date and Time Measure Units Reference Range Abnormal Flag Comments Unknown Advance Directives Directive Yes / No Effective Date File Name Unknown Encounters Encounter Practice Location Reason(s) Diagnoses Date Provider Care Team Description For Visit Members [facility] Pain in right Feb- Maxx Referring In Womens hipSuprvsn of 8-201 Anh. Provider: Health PA, preg w poor 8 700 Anh PO Box reprodctv or Medical Maxx L, 1522, obstet hx, third Center [address] [place], triPrevious Low Dr [facility] [place], Transverse 120, Center [id number], [id number] weeks Ivan [facility] 120, [place] gestation of AMAN [place], tel: [phone] [place], [id number] , [place]. [id number]. tel: tel: [phone] [facility] Suprvsn of preg w Apr-0 Maxx Referring In Womens poor reprodctv or 2-201 Anh. Provider: Danika QUIROGA, obstet hx, third 8 700 Anh PO Box triPrevious Low Medical Maxx L, 1522, Transverse Center [address] [place], C-SectionEnclorie Dr [facility], r for suprvsn of 120, Center [id number], normal , [place], Abdullahi 120, [place] third [id number] [place], tel:+[phone] weeks gestation [phone] [place], of , [place]. [id number]. tel: tel:[phone] [facility] Suprvsn of preg w Apr-0 Maxx Referring In Womens Ultrasound poor reprodctv or 2-201 Anh. Provider: Danika QUIROGA, obstet hx, third 8 700 Anh PO Box triPrevious Low Medical Maxx L, 1522, Transverse Center [address] [place], [id number] weeks Dr [facility] AMAN, gestation of 120, Center , [place], [facility] 120, [place] AMANIvan, tel:[phone] [place], , [place]. [id number]. tel: tel:[phone] [facility] Suprvsn of preg w Mar-2 Mxax Referring In Womens poor reprodctv or 1-201 Anh. Provider: Danika QUIROGA, obstet hx, third 8 700 Anh PO Box triPrevious Low Medical Maxx L, 1522, Transverse Center [address] [place], [facility] [place], r for suprvsn of 120, [place] [id number], normal , [place], Abdullahi 120, [place] third [id number] [place], tel:+[phone] weeks gestation [phone] [place], of , [place]. [id number]. tel: tel:[phone] [facility] Pain in right Mar-0 Maxx Referring In Womens hipSuprvsn of 7-201 Anh. Provider: Danika QUIROGA, preg w poor 8 700 Anh PO Box reprodctv or Medical Maxx L, 1522, obstet hx, third Center [address] [place], triPrevious Low , [facility], Transverse 120, Center [id number], C-SectionEncounte [place], [facility] 120, [place] r for suprvsn of [place], tel: normal , [id number] [place], third [id number] , [place]. [id number]. weeks gestation tel: tel: of [phone] [facility] Suprvsn of preg w Maxx Referring In Womens poor reprodctv or 1-201 Anh. Provider: Health PA, obstet hx, second 8 700 Anh PO Box triPrevious Low Medical Maxx L, 1522, Transverse Center [address] [place], [id number] weeks , [facility] AMAN, gestation of 120, Center , [place], Abdullahi 120, [place], tel:[phone] [place], , [place]. [id number]. tel: tel: [phone] [facility] Suprvsn of preg w Maxx Referring In Womens poor reprodctv or -201 Anh. Provider: Health KIMBER, obstet hx, second 8 700 Anh PO Box triPrevious Low Medical Maxx L, 1522, Transverse Center 700 Chris C-SectionEnclorie , [facility] [place], r for suprvsn of 120, Center [id number], normal , Ivan [facility] 120, [place] second [place], tel: [id number] weeks [phone] [place], gestation of , [place]. [id number]. tel: tel: [phone] [facility] Suprvsn of preg w Oct- Maxx Referring In Womens poor reprodctv or 7-201 Anh. Provider: Health KIMBER, obstet hx, second 7 700 Anh PO Box triPrevious Low Medical Maxx L, 1522, Transverse Center [address] [place], C-SectionEnclorie , [facility] [place], r for suprvsn of 120, Center [id number], normal , [place], Abdullahi 120, [place] second [place], tel:[phone] [id number] weeks [id number] [place], gestation of , [place]. [id number]. tel: tel:[phone] [facility] Suprvsn of preg w Dec-2 Maxx Referring In Womens Ultrasound poor reprodctv or 7-201 Anh. Provider: Danika QUIROGA, ervinet hx, second 7 700 Anh PO Box tri19 weeks Medical Maxx L, 1522, gestation of Center [address] [place] [address], Dr [facility], 120, Center [id number], [place], [facility] 120, [place], tel:+ [phone] [place], , [place]. [id number]. tel: tel:[phone] [facility] Suprvsn of preg w Nov-2 Maxx Referring In Womens poor reprodctv or 9-201 Anh. Provider: ervin Garridoet hx, second 7 700 Anh PO Box triPrevious Low Medical Maxx L, 1522, Transverse Center [address] [place] [address], [id number] weeks Dr [facility], gestation of 120, Center [id number], Ivan, [facility] 120, [place], tel:[phone] [place], , [place]. [id number]. tel: tel:[phone] Derek [place] Previous Low Nov-0 Maxx Referring In Womens Transverse 1-201 Anh. Provider: Danika QUIROGA, C-SectionEncounte 7 700 Anh PO Box r for suprvsn of Medical Maxx L, 1522, normal , [address], first [id number] Dr [facility] [place]AN, weeks gestation 120, Center [id number], of [place], [facility] 120, [place], tel:[phone] [place], , [place]. [id number]. tel: tel:[phone] Derek [place] Suprvsn of preg w Oct-1 Maxx Referring In Womens poor reprodctv or 1-201 Anh. Provider: Danika QUIROGA obstet hx, first 7 700 Anh PO Box triPrevious Low Medical Maxx L, 1522, Transverse Center [address] [place], [place] [id number], C-SectionEncntr , [facility], screen for 120, [place] , infections w sexl [place], [facility] 120, [place] mode of [place], tel:[phone] transmissEncounte [phone] [place], r for screening , [place]. [id number]. for oth tel: tel:[phone] infec/parastc [phone] diseasesEncounter for suprvsn of normal , first trimesterEncounte r for screening of motherLess than 8 weeks gestation of [facility] Incomplete Aug-2 Maxx Referring In Womens spontaneous 1-201 Anh. Provider: Danika QUIROGA, without 7 700 Anh PO Box complication Medical Maxx L, 1522, Center [facility] Center Dr Chris, [facility], 120, [place] [id number], [facility], [place], tel: [phone] [facility] , [place]. [id number]. tel: tel:[phone] [facility] Incomplete Aug-0 Maxx In Womens spontaneous 9-201 Anh. Health KIMBER, without 7 700 PO Box complication Medical 1522, [address] Dr Chris, [facility], 120, [id number], [place], [place], tel:[phone] , [place]. tel: [phone] Derek [place] Threatened Aug-0 Maxx Referring In Womens 7-201 Anh. Provider: Health KIMBER, 7 700 Anh PO Box Medical Maxx L, 1522, Center [facility] Center Dr Chris, [facility], 120, [place] [id number], [facility], [place], tel:[phone] [facility] , [place]. [id number]. tel: tel:[phone] Derek [place] Threatened Aug-0 Maxx In Womens 4-201 Anh. Health KIMBER, 7 700 PO Box Medical 1522, [address] Dr Chris, [facility] [place], 120, [id number], [place], [place], tel:[phone] , [place]. tel: [phone] [facility] Encntr for f/u May-0 Maxx Referring In Womens exam aft trtmt 5-201 Anh. Provider: Danika QUIROGA, for cond oth than 7 700 Anh PO Box stanley allen Medical Maxx L, 1522, Center [address], [facility] [place], 120, Center [id number], [place], [facility] 120, [place], tel: [phone] [place], , [place]. [id number]. tel: tel: [phone] Derek [place] Incomplete March-1 Maxx Referring In Womens spontaneous 9- Anh. Provider: Danika QUIROGA, with 7 700 Anh PO Box other Medical Maxx L, 1522, complications Center [facility] Center Dr Chris, [facility], 120, Center [id number], [facility], [place], tel:[phone] [place], , [place]. [id number]. tel: tel: [phone] Derek [place] Incomplete March-1 Maxx Referring In Womens spontaneous -201 Anh. Provider: Danika QUIROGA, with 7 700 Anh PO Box other Medical Maxx L, 1522, complications Center [address], [facility] [place], 120, Center [id number], Ivan, [facility] 120, [place], tel: [phone] [place], , [place]. [id number]. tel: tel:[phone] Derek [place] Incomplete May-1 Maxx Referring In Womens Ultrasound spontaneous 7-201 Anh. Provider: Danika QUIROGA, with 7 700 Anh PO Box other Medical Maxx L, 1522, complications Center [address] Dr Chris, [facility] [place], 120, Center [id number], Ivan, [facility] 120, [place] Ivan [place], tel:[phone] [place], , [place]. [id number]. tel: tel: [phone] [facility] Incomplete May-1 Maxx Referring In Womens spontaneous 6-201 Anh. Provider: Danika QUIROGA, with 7 700 Anh PO Box other Medical Maxx L, 1522, complications Center [facility] Center Dr Chris, [facility] [place], 120, [place] [id number], [place], [facility] 120, AMAN, Ivan, tel: [phone] [place], , . [id number]. tel: tel: [phone] [facility] Blighted ovum and Apr-2 Maxx Referring In Womens nonhydatidiform 4-201 Anh. Provider: Danika QUIROGA, mole 7 700 Anh PO Box Medical Maxx L, 1522, Center [facility] Center Dr Chris, [facility], 120, [place] [id number], [place], [facility] 120, AMAN, Ivan, tel: [phone] [place], , . [id number]. tel: tel: [phone] [facility] Blighted ovum and Apr-1 Maxx Referring In Womens nonhydatidiform 3-201 Anh. Provider: Danika QUIROGA, mole 7 700 Anh PO Box Medical Maxx L, 1522, Center [facility] Center Dr Chris, [facility], 120, [place] [id number], Ivan, [facility] 120, Ivan [place], tel: [phone] [place], , [place]. [id number]. tel: tel: [phone] [facility] Blighted ovum and Apr-0 Maxx In Womens nonhydatidiform 7-201 Anh. Danika QUIROGA, mole 7 700 PO Box Medical 1522, [address] Dr Chris, [facility], 120, [id number], [place], [place], tel: [phone] , [place]. tel: [phone] [facility] Blighted ovum and Apr-0 Maxx Referring In Womens nonhydatidiform 6-201 Anh. Provider: Danika QUIROGA, moleEncounter for 7 700 Anh PO Box test, Medical Maxx L, 1522, result [id number] Center [address] [place], weeks gestation , Abdullahi [place], of 120, Center [id number], Ivan, [facility] 120, [place], tel:+ [phone] [place], , [place]. [id number]. tel: tel:[phone] [facility] Previous Low Apr-0 Maxx Referring In Womens Ultrasound Transverse 6-201 Anh. Provider: Danika QUIROGA, C-Section 7 700 Anh PO Box state, Medical Maxx L, 1522, [id number] Center [address] [place], weeks gestation , Abdullahi [place], of 120, Center [id number], Ivan, [facility] 120, [place], tel:+ [phone] [place], , [place]. [id number]. tel: tel:[phone] Derek [place] state, Mar-2 Maxx Referring In Womens incidental 9-201 Anh. Provider: Danika QUIROGA, 7 700 Anh PO Box Medical Maxx L, 1522, Center [facility] Center Dr Chris, [facility] Sammy [place], 120, Center [id number], Ivan, [facility] 120, [place], tel:+ [phone] [place], , [place]. [id number]. tel: tel:[phone] Derek [place] state, Mar-2 Carr Referring In Womens incidental9 weeks 8-201 Mary. Provider: Danika QUIROGA, gestation of 7 700 Anh PO Box Medical Maxx L, 1522, Center [address] [facility] [place], 120, Center [id number], Ivan [facility] 120, [place], tel:[phone] [place], , [place]. [id number]. tel: tel:[phone] Derek [place] Encounter for Mar-2 Maxx Referring In Womens test, 7-201 Anh. Provider: Danika QUIROGA, result unknown9 7 700 Anh PO Box weeks gestation Medical Maxx L, 1522, of Center [address] Dr Chris, [facility] [place], 120, Center [id number], Ivan, [facility] 120, [place], tel:[phone] [place], , [place]. [id number]. tel: tel:[phone] Derek [place] Encntr for medical assistant ob gyn Edward-0 Maxx Referring In Womens exam (general) 9-201 Anh. Provider: Danika QUIROGA, (routine) w/o abn 6 700 Anh PO Box findings Medical Maxx L, 1522, Center [facility] Center Dr Chris, [facility] [place], 120, Center [id number], Ivan, [facility] 120, [place], tel:+ [phone] [place], , [place]. [id number]. tel: tel:[phone] Derek [place] Dec- Maxx Referring In Womens 8-201 Anh. Provider: Danika QUIROGA, 5 700 Anh PO Box Medical Maxx L, 1522, Center [address], [facility] [place], 120, Center [id number], Ivan, [facility] 120, [place], tel:[phone] [place], , [place]. [id number]. tel: tel:[phone] Derek [place] Aug-2 Maxx Referring In Womens 8-201 Anh. Provider: Danika QUIROGA, 4 700 Anh PO Box Medical Maxx L, 1522, Center [facility] Center Dr Chris, [facility] [place], 120, Center [id number], Ivan [facility] 120, [place], tel:[phone] [place], , [place]. [id number]. tel: tel:[phone] Derek [place] Sep-0 Ibeth In Womens 5-201 Janee. Danika QUIROGA, 4 700 PO Box Medical 1522, Center Dr Chris, [facility] [place], 120, [id number] [place], AMAN, tel:[phone] , [place]. tel: [phone] Family History Family Member Diagnosis Age At [...] older Payers Payer name Insurance type Covered constitution party ID Authorization(s) [employer] Out [place] [id number] [employer] [place] [employer] [place] [id number] [employer] Out [employer] [place] [id number] Social History Type Description Quantity Date Captured [...] Leticia Judd BOOKED Appointment Leticia Judd - PAC - RC/S, PPTL BOOKED Future Order: Radiology Order Ultrasound OB Follow-up ([id number]) Ordered Future Order: Radiology Order Transvaginal Pelvic Ultrasound Ordered ([id number]) Future Order: Radiology Order Complete OB Ultrasound > 14 Ordered Weeks ([id number]) Future Order: Radiology Order Ultrasound < 14 wks ([id number]) Ordered Date Type Problem Goal Intervention Status [...]
--- OUTSIDE RECORDS SUMMARY | 2018-03-24 05:42 | External Medical Summary | Referral Summary ---
:1985 Author Organization [facility] Denise Newton[address] [place] [address] Care Team Providers Name Role Phone Tata Don Primary Care Physician Encounter [facility] [id number] Date(s): 10/14/16 - 10/14/16 [facility] Denise Newton[address] [place] [address]- [place] Discharge Diagnosis: Acute URI Discharge Diagnosis: Cough Discharge Disposition: 01-Home or Self Care Attending Physician: Ethan Jeff MD Admitting Physician: Ethan Jeff MD Vital Signs Most recent to [facility] [Reference Range]: 1 Blood Pressure [90-140/60-90 mmHg] 100/70 mmHg (10/14/16 11:34 AM) Problem List Condition Effective Dates Status Health Status Informant Obesity(Confirmed) Active patient Allergies, Adverse Reactions, Alerts No Known Allergies Medications predniSONE 20 mg oral tablet 20 mg 1 tabs, Oral, Daily, X 5 days, # 5 tabs, 0 Refill(s), Pharmacy: [id number], 1 tabsOral Daily,x5 days Start Date: 10/14/16 Stop Date: 10/19/16 Status: Orderedpromethazine-codeine 6.25 mg-10 mg/5 mL oral syrup 5 mL, Oral, q4hr, as needed for cough, # 120 mL, 0 Refill(s), called to pharmacy (Rx) Start Date: 10/14/16 Status: Ordered Results No data available for this section Immunizations No data available for this section Procedures No data available for this section Social History Social History Type Response Smoking Status Never smoker Assessment and Plan Extracted from: Title: Ambulatory Patient Education Author: Ethan Jeff MD Date: Emergency Medicine Upper Respiratory Infection, Adult Most upper respiratory infections (URIs) are a viral infection of the air passages leading to the lungs. A URI affects the nose, throat, and upper air passages. The most common type of URI is nasopharyn gitis and is typically referred to as "the common cold." URIs run their course and usually go away on their own. Most of the time, a URI does not require medical attention, but sometimes a bacterial infection in the upper airways can follow a viral infection. This is called a secondary infection. Sinus and middle ear infections are common types of secondary upper respiratory infections. Bacterial pneumonia can also complicate a URI. A URI can worsen asthma and chronic obstructive pulmonary disease (COPD). Sometimes, these complications can require emergency medical care and may be life threatening. CAUSES Almost all URIs are caused by viruses. A virus is a type of germ and can spread from one person to another. RISKS FACTORS You may be at risk for a URI if: You smoke. You have chronic heart or lung disease. You have a weakened defense (immune) system. You are very young or very old. You have nasal allergies or asthma. You work in crowded or poorly ventilated areas. You work in health care facilities or schools. SIGNS AND SYMPTOMS Symptoms typically develop 23 days after you come in contact with a cold virus. Most viral URIs last 710 days. However, viral URIs from the influenza virus (flu virus) can last 1418 days and are typically more severe. Symptoms may include: Runny or stuffy (congested) nose. Sneezing. Cough. Sore throat. Headache. Fatigue. Fever. Loss of appetite. Pain in your forehead, behind your eyes, and over your cheekbones ( sinus pain). Muscle aches. DIAGNOSIS Your health care provider may diagnose a URI by: Physical exam. Tests to check that your symptoms are not due to another condition such as: Strep throat. Sinusitis. Pneumonia. Asthma. TREATMENT A URI goes away on its own with time. It cannot be cured with medicines, but medicines may be prescribed or recommended to relieve symptoms. Medicines may help: Reduce your fever. Reduce your cough. Relieve nasal congestion. HOME CARE INSTRUCTIONS Take medicines only as directed by your health care provider. Gargle warm saltwater or take cough drops to comfort your throat as directed by your health care provider. Use a warm mist humidifier or inhale steam from a shower to increase air moisture. This may make it easier to breathe. Drink enough fluid to keep your urine clear or pale yellow. Eat soups and other clear broths and maintain good nutrition. Rest as needed. Return to work when your temperature has returned to normal or as your health care provider advises. You may need to stay home longer to avoid infecting others. You can also use a face mask and c areful hand washing to prevent spread of the virus. Increase the usage of your inhaler if you have asthma. Do not use any tobacco products, including cigarettes, chewing tobacco, or electronic cigarettes. If you need help quitting, ask your health care provider. PREVENTION The best way to protect yourself from getting a cold is to practice good hygiene. Avoid oral or hand contact with people with cold symptoms. Wash your hands often if contact occurs. There is no clear evidence that vitamin C, vitamin E, echinacea, or exercise reduces the chance of developing a cold. However, it is always recommended to get plenty of rest, exercise, and practice good nutrition. SEEK MEDICAL CARE IF: You are getting worse rather than better. Your symptoms are not controlled by medicine. You have chills. You have worsening shortness of breath. You have brown or red mucus. You have yellow or brown nasal discharge. You have pain in your face, especially when you bend forward. You have a fever. You have swollen neck glands. You have pain while swallowing. You have white areas in the back of your throat. SEEK IMMEDIATE MEDICAL CARE IF: You have severe or persistent: Headache. Ear pain. Sinus pain. Chest pain. You have chronic lung disease and any of the following: Wheezing. Prolonged cough. Coughing up blood. A change in your usual mucus. You have a stiff neck. You have changes in your: Vision. Hearing. Thinking. Mood. MAKE SURE YOU: Understand these instructions. Will watch your condition. Will get help right away if you are not doing well or get worse. This information is not intended to replace advice given to you by your health care provider. Make sure you discuss any questions you have with your health care provider. Document Released: 04/26/2002 Document Revised: 03/16/2016 Document Reviewed: 02/05/2015 [employer] Interactive Patient Education 2016 [employer] No follow up information was provided. Extracted from: Title: Office Visit Note Author: Ethan Jeff MD Date: 10/14/16 Assessment/Plan Acute URI The patient has a mild infection and was given zithromax elixir 100 /5 one tsp today and 1/2 tsp daily until gone with pediapred elixir one tsp daily until gone also. (Five day total of each respectively.) CXR and solumedrol discussed and declined for now. Cough Phen w/cod. May cause sedation. A work/school note was offered and deferred by the patient.
--- OUTSIDE RECORDS SUMMARY | 2018-03-24 05:42 | External Medical Summary | Continuity of Care Document ---
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 (general) - (routine) w/o abn findings Pain in right hip - Suprvsn of preg w poor reprodctv or - obstet hx, third tri Previous Low Transverse - Encounter for suprvsn of normal - , third trimester 29 weeks gestation of - Encounter for test, [...] second trimester 23 weeks gestation of - Blighted ovum and [...] third trimester 31 weeks gestation of - Threatened Threatened Previous Low Transverse - Encounter for suprvsn of normal - , first trimester 11 weeks gestation of - Previous Low Transverse - state, incidental - 10 weeks gestation of - state, incidental - state, incidental - 9 weeks gestation of - Active Irregular Bleeding Active Active Procedures Procedure Date OB Visit No Charge Cult, bactr, william colonycnt, urine Results Test Name Date and Time Measure Units Reference Range Abnormal Flag Comments Panel Description: Urine Culture, Routine Urine Culture, 14:46:00 Final report Routine Result 1 14:46:00 Comment Culture shows less than 10,000 colony forming units of bacteria permilliliter of urine. This colony count is not generally consideredto be clinically significant. Advance Directives Directive Yes / No Effective Date File Name Unknown Encounters Encounter Practice Location Reason(s) Diagnoses Date Provider Care Team Description For Visit Members [facility] Suprvsn of preg w Mar-2 Maxx Referring In Womens poor reprodctv or 1-201 Anh. Provider: Health PA, obstet hx, third 8 700 Anh PO Box triPrevious Low Medical Maxx L, 1522, Transverse Center [address] [place], C-SectionEncounte Dr [facility], r for suprvsn of 120, Center [id number], normal , [facility] 120, [place] third [id number] Ivan [place], tel:[phone] weeks gestation [id number] [place], [id number] of , [place]. [id number]. tel: tel:[phone] [facility] Pain in right Mar-0 Maxx Referring In Womens hipSuprvsn of 7-201 Anh. Provider: Danika QUIROGA, preg w poor 8 700 Anh PO Box reprodctv or Medical Maxx L, 1522, obstet hx, third Center [address] [place], triPrevious Low Dr [facility] AMAN, Transverse 120, Center [id number], C-SectionEncounte [facility] Abdullahi 120, [place] r for suprvsn of Ivan [place], tel:[phone] normal , [phone] [place], third , [place]. [id number]. weeks gestation tel: tel: of [phone] [facility] Suprvsn of preg w Maxx Referring In Womens poor reprodctv or 1-201 Anh. Provider: Health KIMBER, obstet hx, second 8 700 Anh PO Box triPrevious Low Medical Maxx L, 1522, Transverse Center [address] [place], [id number] weeks Dr [facility], gestation of 120, Center , [place], [facility] 120, [place] Ivan [place], tel:[phone] [place], , [place]. [id number]. tel: tel: [phone] [facility] Suprvsn of preg w Maxx Referring In Womens poor reprodctv or Anh. Provider: Danika QUIROGA obstet hx, second 8 700 Anh PO Box triPrevious Low Medical Maxx L, 1522, Transverse Center [address] [place], C-SectionEnclorie Dr [facility], r for suprvsn of 120, Center [id number], normal , [facility], [place] second Ivan [place], tel: [phone] weeks [id number] [place], gestation of , [place]. [id number]. tel: tel: [phone] [facility] Suprvsn of preg w Maxx Referring In Womens poor reprodctv or 7-201 Anh. Provider: Danika QUIROGA, obstet hx, second 7 700 Anh PO Box triPrevious Low Medical Maxx L, 1522, Transverse Center 700 [place], C-SectionEncmigdalia Greene [facility], r for suprvsn of 120, Center [id number], normal , [place], [place] 120, [place] second Ivan [place], tel: weeks [phone] [place], gestation of , [place]. [id number]. tel: tel: [phone] [facility] Suprvsn of preg w Dec-2 Maxx Referring In Womens Ultrasound poor reprodctv or 7- Anh. Provider: Health KIMBER, obstet hx, second 7 700 Anh PO Box tri19 weeks Medical Maxx L, 1522, gestation of Center [address], , Abdullahi [place], 120, Center [id number], [place], [facility] 120, [place], tel:[phone] [place], , [place]. [id number]. tel: tel:[phone] [facility] Suprvsn of preg w Nov-2 Maxx Referring In Womens poor reprodctv or Anh. Provider: Danika QUIROGA, obstet hx, second 7 700 Anh PO Box triPrevious Low Medical Maxx L, 1522, Transverse Center [address] [place] [address], [id number] weeks Dr [facility] Sammy [place], gestation of 120, Center [id number], [place], [facility] 120, [place], tel:+ [phone] [place], , [place]. [id number]. tel: tel:[phone] [facility] Previous Low Sep-0 Maxx Referring In Womens Transverse -201 Anh. Provider: Danika QUIROGA, C-SectionEncounte 7 700 Anh PO Box r for suprvsn of Medical Maxx L, 1522, normal , [address], first [id number] Dr [facility] Sammy [place], weeks gestation 120, Center [id number], of [place], [facility] 120, [place] Ivan [place], tel: [phone] [place], , [place]. [id number]. tel: tel:[phone] [facility] Suprvsn of preg w Oct-1 Maxx Referring In Womens poor reprodctv or -201 Anh. Provider: Danika QUIROGA, obstet hx, first 7 700 Anh PO Box triPrevious Low Medical Maxx L, 1522, Transverse Center [address] [place] [address], C-SectionEncntr Dr [facility] AMAN, screen for 120, Center [id number], infections w sexl Ivan, [facility] 120, [place] mode of [place], Ivan, tel: transmissEncounte [phone] [place], r for screening , [place]. [id number]. for oth tel: tel: infec/parastc [phone] diseasesEncounter for suprvsn of normal , first trimesterEncounte r for screening of motherLess than 8 weeks gestation of [facility] Incomplete Aug-2 Maxx Referring In Womens spontaneous - Anh. Provider: Health [place], without 7 700 Anh PO Box complication Medical Maxx L, 1522, Center [address], [facility], 120, [place] [id number], [facility], [place], tel:[phone] [place], , [place]. [id number]. tel: tel: [phone] [facility] Incomplete Aug-0 Maxx In Womens spontaneous - Anh. Health [place], without 7 700 PO Box complication Medical 1522, [place] Dr Chris, [facility], 120, [id number], [place], [place], tel:[phone] , [place]. tel: [phone] Derek [place] Threatened Aug-0 Maxx Referring In Womens - Anh. Provider: [facility], 7 700 Anh PO Box Medical Maxx L, 1522, Center [address], [facility], 120, [place] [id number], [facility], [place], tel:[phone] [place], , [place]. [id number]. tel: tel: [phone] [facility] Threatened Aug-0 Maxx In Womens 4- Anh. Health [place], 7 700 PO Box Medical 1522, [place] Dr Chris, [facility] [place], 120, [id number], [place], [place], tel:[phone] , [place]. tel: [phone] Derek [place] Encntr for f/u Irving-0 Maxx Referring In Womens exam aft trtmt 5-201 Anh. Provider: Danika QUIROGA, for cond oth than 7 700 Anh PO Box stanley allen Medical Maxx L, 1522, Center [address], [facility] [place], 120, Center [id number], [place], [facility] 120, [place], tel:[phone] [place], , [place]. [id number]. tel: tel:[phone] [facility] Incomplete March- Maxx Referring In Womens spontaneous 9-201 Anh. Provider: Danika QUIROGA, with 7 700 Anh PO Box other Medical Maxx L, 1522, complications Center [address], [facility] [place], 120, Center [id number], Ivan, [facility] 120, [place], tel:[phone] [place], , [place]. [id number]. tel: tel:[phone] [facility] Incomplete March-1 Maxx Referring In Womens spontaneous 7-201 Anh. Provider: Danika QUIROGA, with 7 700 Anh PO Box other Medical Maxx L, 1522, complications Center [address], [facility] [place], 120, Center [id number], Ivan, [facility] 120, [place] Ivan [place], tel:[phone] [place], , [place]. [id number]. tel: tel:[phone] [facility] Incomplete March-1 Maxx Referring In Womens Ultrasound spontaneous 7-201 Anh. Provider: Danika QUIROGA, with 7 700 Anh PO Box other Medical Maxx L, 1522, complications Center [address], [facility] [place], 120, Center [id number], Ivan, [facility] 120, [place], tel:[phone] [place], , [place]. [id number]. tel: tel:[phone] [facility] Incomplete March-1 Maxx Referring In Womens spontaneous 6-201 Anh. Provider: Danika QUIROGA, with 7 700 Anh PO Box other Medical Maxx L, 1522, complications Center [facility] Dr Chris, [facility], 120, [place] [id number], [facility], [place], tel:+ [phone] [place], , . [id number]. tel: tel:[phone] [facility] Blighted ovum and Apr-2 Maxx Referring In Womens nonhydatidiform 4-201 Anh. Provider: Danika QUIROGA, mole 7 700 Anh PO Box Medical Maxx L, 1522, Center [facility] Dr Chris, [facility], 120, [place] , Ivan [facility] 120, Ivan [place], tel:+ [phone] [place], , [place]. [id number]. tel: tel: [phone] [facility] Blighted ovum and Apr-1 Maxx Referring In Womens nonhydatidiform 3-201 Anh. Provider: Danika QUIROGA, mole 7 700 Anh PO Box Medical Maxx L, 1522, Center [facility] Dr Chris, [facility], 120, [place] [id number], Ivan [facility] 120, Ivan [place], tel: [phone] [place], , [place]. [id number]. tel: tel:[phone] [facility] Blighted ovum and Apr-0 Maxx In Womens nonhydatidiform 7-201 Anh. Danika QUIROGA, mole 7 700 PO Box Medical 1522, [place] Dr Chris, [facility] [place], 120, [id number], [place], [place], tel: [phone] , [place]. tel: [phone] [facility] Blighted ovum and Apr-0 Maxx Referring In Womens nonhydatidiform 6-201 Anh. Provider: Danika QUIROGA, moleEncounter for 7 700 Anh PO Box test, Medical Maxx L, 1522, result [id number] Center [facility] Chris, weeks gestation , [facility], of 120, Center [id number], Ivan, [facility] 120, [place] Ivan [place], tel:[phone] [place], , [place]. [id number]. tel: tel:[phone] [facility] Previous Low Apr-0 Maxx Referring In Womens Ultrasound Transverse 6-201 Anh. Provider: Danika QUIROGA, C-Section 7 700 Anh PO Box state, Medical Maxx L, 1522, [id number] Center [address] [place], weeks gestation , [facility], of 120, Center [id number], Ivan, [facility] 120, [place] Ivan [place], tel:[phone] [place], , [place]. [id number]. tel: tel:[phone] Derek [place] state, Mar-2 Maxx Referring In Womens incidental 9-201 Anh. Provider: Danika QUIROGA, 7 700 Ahn PO Box Medical Maxx [place], 1522, Center [facility] Dr Chris, [facility], 120, Center [id number], Ivan, [facility] 120, [place] Ivan [place], tel:[phone] [place], , [place]. [id number]. tel: tel:[phone] [facility] state, Mar-2 Carr Referring In Womens incidental9 weeks 8-201 Mayr. Provider: Danika QUIROGA, gestation of 7 700 Anh PO Box Medical Maxx [place], 1522, Center [facility] Dr Chris, [facility], 120, Center [id number], Ivan, [facility] 120, [place] Ivan [place], tel:[phone] [place], , [place]. [id number]. tel: tel:[phone] [facility] Encounter for Mar-2 Maxx Referring In Womens test, 7-201 Anh. Provider: Danika QUIROGA, result unknown9 7 700 Anh PO Box weeks gestation Medical Maxx [place], 1522, of Center [facility] Dr Chris, [facility], 120, Center [id number], Ivan [facility] 120, [place] Ivan [place] tel:+ [phone] [place], , [place]. [id number]. tel: tel: [phone] Derek [place] Encntr for development advisor Edward-0 Maxx Referring In Womens exam (general) 9- Anh. Provider: Danika QUIROGA, (routine) w/o abn 6 700 Anh PO Box [facility] Medical Maxx L, 1522, Center [facility] Dr Chris, [facility] [place], 120, [place] [id number], [facility] 120, Ivan [place], tel:[phone] [place], , [place]. [id number]. tel: tel: [phone] Derek [place] Dec- Maxx Referring In Womens 8- Anh. Provider: Danika QUIROGA, 5 700 Anh PO Box Medical Maxx L, 1522, Center [address], [facility], 120, [place] [id number], [facility] 120, Ivan [place], tel:[phone] [place], , [place]. [id number]. tel: tel:+ [phone] Derek [place] Aug-2 Maxx Referring In Womens 8- Anh. Provider: Danika QUIROGA, 4 700 Anh PO Box Medical Maxx L, 1522, Center [address], [facility] [place], 120, [place] [id number], [facility] 120, Ivan [place], tel:[phone] [place], , [place]. [id number]. tel: tel:[phone] Derek [place] Sep-0 Ibeth In Womens 5-201 Janee. Health KIMBER, 4 700 [facility] Medical 1522, [place] Dr Chris, [facility] [place], 120, [id number] [place], AMAN, tel:[phone] , [place]. tel: [phone] Family History Family Member Diagnosis Age At [...] party ID Authorization(s) [employer] [place] [id number] [employer] [place] BL [id number] [employer] [place] [id number] Social History Type Description Quantity Date Captured [...] Appointment Leticia Judd BOOKED Appointment Leticia Judd BOOKED App[place]ment Leticia Judd [place] [facility] [place] Future Order: Radiology Order Transvaginal Pelvic Ultrasound Ordered ([id number]) Future Order: Radiology Order Complete OB Ultrasound > 14 Ordered Weeks ([id number]) Future Order: Radiology Order Ultrasound < 14 wks ([id number]) Ordered Date Type Problem Goal Intervention Status [...]
--- OUTSIDE RECORDS SUMMARY | 2018-03-24 05:43 | External Medical Summary | Referral Summary ---
:1985 Author Organization [facility] Address [address] [place] [address] Care Team Providers Name Role Phone Tata Don Primary Care Physician Encounter [facility] [id number] Date(s): 04/14/17 - 04/14/17 [facility] [address] [place] [address]- [place] Discharge Diagnosis: Neoplasm of uncertain behavior of skin Discharge Diagnosis: Multiple atypical nevi Discharge Disposition: 01-Home or Self Care Attending Physician: Deborah Jarvis APRN Admitting Physician: Deborah Jarvis APRN Referring Physician: Tata Don DO Vital Signs No data available for this section Problem List Condition Effective Dates Status Health Status Informant Obesity(Confirmed) Active patient Allergies, Adverse Reactions, Alerts No Known Allergies Medications Multivitamins with Vitamin B Complex, Vitamin C, Minerals and L- Methylfolate oral capsule 1 caps, Oral, Daily, # 30 caps, 0 Refill(s) Start Date: 04/14/17 Status: Ordered Results No data available for this section Immunizations No data available for this section Procedures Procedure Date Related Diagnosis Body Site Biopsy of skin, subcutaneous tissue and/or mucous 04/14/17 membrane (including simple closure), unless otherwise listed; each separate/additional lesion (List separately in addition to code for primary procedure) Biopsy of skin, subcutaneous tissue and/or mucous 04/14/17 membrane (including simple closure), unless otherwise listed; single lesion Social History Social History Type Response Smoking Status Never smoker Assessment and Plan Extracted from: Title: Office Visit Note Author: Deborah Jarvis APRN Date: 04/14/17 Assessment/Plan 1.Multiple atypical nevi -Neviappear withbenign features symmetrical and uniform in color. Recommend observance. If any new changescall office for reevaluation -Discussed the ABCDs and ugly duckanikawarning signsto monitor for -Recommended monthly skin self-examination -Discussed proper sun protection measures: wearing a sunscreen of at least 15 to 30 SPF daily, reapply every two hours or after exposure to water, avoid peak sunlight hours (10 am to 3 pm), to wear a wide brimmed hat, long sleeved shirt, and pants -Follow up with annual dermatology skin checks and sooner if new changes in the skin occur Ordered: Office Visit Level 2 New 94230 2.Neoplasm of uncertain behavior of skin -Recommend shave biopsy of suspicious nevi Shave biopsy to 1. Posterior neck 2. Forehead 3. Mid back 4. Mid anterior trunk Changing nevus Will call results Options/risks/benefits of the procedure were discussed and explained and consent was obtained. Specifically discussed risks of scarring, abnormal scarring, skin changes such as color or texture ch anges, recurrence, bleeding, infection, need for further treatment, and other unexpected risks/outcomes of these types of skin procedures. Final timeout performed. Site(s) for biopsy were prepared b y cleaning and injecting each site with <1cc of buffered lidocaine with epi 1:100,000. Site(s) were removed with shave blade in usual fashion. Hemostasis was obtained with drysol and/or hyfrecati on as needed. Ointment and bandages placed where needed. Wound care instructions given Ordered: Biopsy Of Skin, Each Add'L Lesion 45549 Biopsy Of Skin, Single Lesion 77597 Office Visit Level 2 New 02524
--- OUTSIDE RECORDS SUMMARY | 2018-03-24 05:43 | External Medical Summary | Continuity of Care Document ---
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) w/o abn findings Incomplete spontaneous - without complication 9 weeks gestation of - Encounter for test, result - unknown Blighted ovum and nonhydatidiform mole - Encounter for test, result - unknown 10 weeks gestation of - Blighted ovum and nonhydatidiform mole - Blighted ovum and nonhydatidiform mole - Blighted ovum and nonhydatidiform mole Incomplete spontaneous with other complications Previous Low Transverse - 10 weeks gestation of - state, incidental - Incomplete spontaneous with other complications Incomplete spontaneous with - other complications Incomplete spontaneous with other complications Threatened Threatened Incomplete spontaneous without complication state, incidental - 9 weeks gestation of - state, incidental - Active Irregular Bleeding Active Active Procedures Procedure Date HCG, Quantitative Venpnctr fngr/heel/ear stick routne Results Test Name Date and Time Measure Units Reference Range Abnormal Flag Comments Unknown Advance Directives Directive Yes / No Effective Date File Name Unknown Encounters Encounter Practice Location Reason(s) Diagnoses Date Provider Care Team Description For Visit Members Associates [place] Incomplete Jun-2 Maxx Referring In Womens spontaneous - Anh. Provider: Danika QUIROGA, without 7 700 Anh PO Box complication Medical Maxx L, [address], [address], [facility] [place], 120, [place] [id number], [place], [facility] 120, [facility], Ivan, tel:[phone] [facility] , [place]. [id number]. tel: tel: [phone] Associates [facility] Incomplete Jun-0 Maxx In Womens spontaneous - Anh. Danika QUIROGA, without 7 700 PO Box complication Medical 1522, [place] Dr Chris, [facility] [place], 120, [id number], [place], [place], tel: [phone] , [place]. tel: [phone] Associates [facility] Threatened Jun-0 Maxx Referring In Womens Anh. Provider: Danika QUIROGA, 7 700 Anh PO Box Medical Maxx L, 1522, [address], [facility] [place], 120, [place] [id number], [place], [facility] 120, [place], tel: [phone] [place], , [place]. [id number]. tel: tel:[phone] Derek [place] Threatened Aug-0 Maxx In Womens - Anh. Danika QUIROGA, 7 700 PO Box Medical 1522, [place] Dr Chris, [facility] [place], 120, [id number], [place], tel:[phone] , [place]. tel: [phone] Derek [place] Encntr for f/u May-0 Maxx Referring In Womens exam aft trtmt 5- Anh. Provider: Danika QUIROGA, for cond oth than 7 700 Anh PO Box [facility] Medical Maxx L, 1522, Center [address] Dr Chris, [facility] Medical [place], 120, Center [id number], [place], [facility] 120, [place], tel:[phone] [place], , [place]. [id number]. tel: tel:[phone] Associates [facility] Incomplete May-1 Maxx Referring In Womens spontaneous 9-201 Anh. Provider: Danika QUIROGA, with 7 700 Anh PO Box other Medical Maxx L, 1522, complications Center [address] Dr Chris, [facility] Medical [place], 120, Center [id number], [place], [facility] 120, [place], tel:[phone] [place], , [place]. [id number]. tel: tel:[phone] Associates [facility] Incomplete May-1 Maxx Referring In Womens spontaneous 7-201 Anh. Provider: Danika QUIROGA, with 7 700 Anh PO Box other Medical Maxx L, 1522, complications Center [address] Dr Chris, [facility] Medical [place], 120, Center [id number], [place] [facility] 120, [place], tel:[phone] [place], , [place]. [id number]. tel: tel:[phone] Associates [facility] Incomplete May-1 Maxx Referring In Womens Ultrasound spontaneous 7-201 Anh. Provider: Danika QUIROGA, with 7 700 Anh PO Box other Medical Maxx L, 1522, complications Center [address] Dr [address], [facility] Medical [place], 120, Center [id number], [place], [facility] 120, [place], tel:[phone] [place], , [place]. [id number]. tel: tel:[phone] Associates [facility] Incomplete May-1 Maxx Referring In Womens spontaneous 6-201 Anh. Provider: Danika QUIROGA, with 7 700 Anh PO Box other Medical Maxx L, 1522, complications Center [address] Dr Chris, [facility], 120, [place] [id number], [place], [facility] 120, [place], tel:[phone] [place], , . [id number]. tel: tel: [phone] Associates [facility] Blighted ovum and Apr-2 Maxx Referring In Womens nonhydatidiform 4-201 Anh. Provider: Danika QUIROGA [facility] 700 Anh PO Box Medical Maxx L, 1522, [place] [address] [address] Chris, [facility], 120, [place] [id number], [place], [facility] 120, [place], tel:[phone] [place], , . [id number]. tel: tel: [phone] [facility] Blighted ovum and Apr-1 Maxx Referring In Womens nonhydatidiform 3-201 Anh. Provider: teodoro Garrido 700 Anh PO Box Medical Maxx L, 1522, [place] [address] [address] Chris, [facility], 120, [place] [id number], [facility], [place], tel:[phone] [place], , . [id number]. tel: tel: [phone] [facility] Blighted ovum and Apr-0 Maxx In Womens nonhydatidiform 7-201 Anh. teodoro Garrido 700 PO Box Medical 1522, [place] Dr Chris, [facility], 120, [id number], [place], [place], tel: [phone] , [place]. tel: [phone] [facility] Blighted ovum and Apr-0 Maxx Referring In Womens nonhydatidiform 6-201 Anh. Provider: Henri Garridoer for 7 700 Anh PO Box test, Medical Maxx L, 1522, result [id number], weeks gestation , [facility], of 120, [place] [id number], [place], [facility] 120, [place], tel:[phone] [place], , [place]. [id number]. tel: tel:[phone] Associates [facility] Previous Low Apr-0 Maxx Referring In Womens Ultrasound Transverse 6-201 Anh. Provider: Danika QUIROGA, [id number] weeks 7 700 Anh PO Box gestation of Medical Maxx L, 1522, pregnancy Center 700 [place], [facility], incidental , [facility], 120, Center [id number], [place], [facility] 120, [place], tel: [phone] [place], , [place]. [id number]. tel: tel:[phone] Associates [facility] state, Mar-2 Maxx Referring In Womens incidental 9-201 Anh. Provider: Danika QUIROGA, 7 700 Anh PO Box Medical Maxx L, 1522, Center 700 Chris, , [facility] [place], 120, Center [id number], Ivan [facility] 120, [place], tel:[phone] [place], , [place]. [id number]. tel: tel:[phone] Associates Ivan state, Mar-2 Carr Referring In Womens incidental9 weeks 8-201 Mary. Provider: Danika QUIROGA, gestation of 7 700 Anh PO Box Medical Maxx L, 1522, Center 700 Chris, Dr [facility] [place], 120, Center [id number], Ivan [facility] 120, [place], tel:[phone] [place], , [place]. [id number]. tel: tel:[phone] Associates [facility] 9 weeks gestation Mar-2 Maxx Referring In Womens of 7-201 Anh. Provider: Danika QUIROGA, pregnancyEncounte 7 700 Anh PO Box r for Medical Maxx L, 1522, test, result Center 700 Chris, suhail [place], Abdullahi [place], 120, Center [id number], Ivan [facility] 120, [place], tel:[phone] [place], , [place]. [id number]. 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 Provider: Danika QUIROGA, (routine) w/o abn 6 700 Anh PO Box findings Medical Maxx L, 1522, Center [address] Dr Chris, [facility] [place], 120, Center [id number], [place], [facility] 120, [place], tel:[phone] [place], , [place]. [id number]. tel: tel:[phone] Derek [place] Dec- Maxx Referring In Womens 8-201 Anh. Provider: Danika QUIROGA, 5 700 Anh PO Box Medical Maxx L, 1522, Center [address] Dr Chris, [facility] [place], 120, [place] [id number], [facility], [place], tel:[phone] [facility] , . [id number]. tel: tel:[phone] Derek [place] Oct-2 Maxx Referring In Womens 8-201 Anh. Provider: Danika QUIROGA, 4 700 Anh PO Box Medical Maxx L, 1522, Center [address] Dr Chris, [facility] [place], 120, Center [id number], [place], [facility] 120, [place], tel:[phone] [place], , . [id number]. tel: tel:[phone] Derek [place] Sep-0 Ibeth In Womens 5-201 Janee. Danika QUIROGA, 4 700 PO Box Medical 1522, [place] Dr Chris, [facility] [place], 120, [id number], [place], [place], tel:[phone] , [place]. tel: [phone] Family History Family Member Diagnosis Age At [...] party ID Authorization(s) [employer] Out [place] [id number] [employer] [place] [id number] [employer] Out [place] [id number] Social History Type Description Quantity Date Captured Unknown Vital Signs Date / Height Weight BMI Pulse Blood Temperature Respiratory Body Head BMI Time: Rate Pressure Rate Surface Circumference percentile Area Unknown Chief Complaint And Reason For Visit Unknown Chief Complaint And Reason For Visit Reason For Referral Reason For Referral Unknown Plan Of Care Date Type Action Status Future Order: Radiology Order Ultrasound < 14 wks ([id number]) Ordered Future Order: Radiology Order Transvaginal Pelvic Ultrasound Ordered ([id number]) Date Type Problem Goal Intervention Status Start Date Unknown. History Of Present Illness Encounter Date Complaint History Of Present Illness This patient has no known history of present illness Functional Status Encounter Date Functional Assessment Cognitive Assessment Unknown Medications Administered Medication Instructions Dosage Effective Dates (start - stop) Status Comments Drug Treatment Unknown Instructions Date Instruction Additional Information Giving encouragement to exercise Related to Body [...]
--- OUTSIDE RECORDS SUMMARY | 2018-03-24 05:43 | External Medical Summary | Continuity of Care Document ---
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 Threatened Encounter for test, result - unknown 9 weeks gestation of - Blighted ovum and [...] - without complication Incomplete spontaneous without complication Threatened Previous Low Transverse - 10 weeks gestation of - state, incidental - state, incidental - state, incidental - 9 weeks gestation of - Active Irregular Bleeding Active Active Procedures Procedure Date Unknown Results Test Name Date and Time Measure Units Reference Range Abnormal Flag Comments Unknown Advance Directives Directive Yes / No Effective Date File Name Unknown Encounters Encounter Practice Location Reason(s) Diagnoses Date Provider Care Team Description For Visit Members Derek [place] Incomplete Aug-2 Maxx Referring In Womens spontaneous 1- Anh. Provider: Danika QUIROGA, without 7 700 Anh PO Box complication Medical Maxx L, 1522, Center [facility] Dr Chris, [facility] [place], 120, [place] [id number], [place] [facility] 120, [place], [place], tel:[phone] [place], , [place]. [id number]. tel: tel:[phone] Derek [place] Incomplete Aug-0 Maxx In Womens spontaneous - Anh. Danika QUIROGA, without 7 700 PO Box complication Medical 1522, [place] Dr Chris, [facility] [place], 120, [id number], [place], [facility], tel:[phone] , [place]. tel: [phone] Derek [place] Threatened Aug-0 Maxx Referring In Womens - Anh. Provider: Danika QUIROGA, 7 700 Anh PO Box Medical Maxx L, 1522, [address], [facility] [place], 120, [place] [id number], [place] [facility] 120, [place], tel:[phone] [place], , [place]. [id number]. tel: tel:[phone] Derek [place] Threatened Aug-0 Maxx In Womens 4- Anh. Danika QUIROGA, 7 700 PO Box Medical 1522, [place] Dr Chris, [facility] [place], 120, [id number], [place], [facility], tel:[phone] , [place]. tel: [phone] Derek [place] Encntr for f/u May-0 Maxx Referring In Womens exam aft trtmt 5- Anh. Provider: Danika QUIROGA, for cond oth than 7 700 Anh PO Box malig neoplm Medical Maxx L, 1522, Center [address] Dr Chris, [facility] Medical [place], 120, Center [id number], [place], [facility] 120, [place], tel:[phone] [place], , [place]. [id number]. tel: tel:[phone] Associates [place] Incomplete May-1 Maxx Referring In Womens spontaneous 9-201 Anh. Provider: Danika QUIROGA, with 7 700 Anh PO Box other Medical Maxx L, 1522, complications Center [address] Dr Chris, [facility] Medical [place], 120, Center [id number], [place], [facility] 120, [place], tel:[phone] [place], , [place]. [id number]. tel: tel:[phone] Associates [place] Incomplete May-1 Maxx Referring In Womens spontaneous 7-201 Anh. Provider: Danika QUIROGA, with 7 700 Anh PO Box other Medical Maxx L, 1522, complications Center [address] Dr Chris, [facility] Medical [place], 120, Center [id number], [place], [facility] 120, [place], tel:[phone] [place], , [place]. [id number]. tel: tel:[phone] Associates vIan Incomplete May-1 Maxx Referring In Womens Ultrasound spontaneous 7-201 Anh. Provider: Danika QUIROGA, with 7 700 Anh PO Box other Medical Maxx L, 1522, complications Center [facility] Dr Chris, [facility] Medical [place], 120, Center [id number], [place], [facility] 120, [place], tel:[phone] [place], , [place]. [id number]. tel: tel:[phone] Associates [facility] Incomplete May-1 Maxx Referring In Womens spontaneous 6-201 Anh. Provider: Danika QUIROGA, with 7 700 Anh PO Box other Medical Maxx L, 1522, complications Center [address] Dr Chris, [facility] Medical [place], 120, Center [id number], [place], [facility] 120, [place], tel:[phone] [place], , [place]. [id number]. tel: tel: [phone] Associates [facility] Blighted ovum and Apr-2 Maxx Referring In Womens nonhydatidiform 4-201 Anh. Provider: Danika QUIROGA [facility] 7 700 Anh PO Box Medical Maxx L, 1522, [place] [address] [address] Chris, [facility], 120, [place] [id number], [place] [facility] 120, [place], [place], tel:[phone] [place], , [place]. [id number]. tel: tel: [phone] Associates [facility] Blighted ovum and Apr-1 Maxx Referring In Womens nonhydatidiform 3-201 Anh. Provider: Danika QUIROGA [facility] 7 700 Anh PO Box Medical Maxx L, 1522, [place] [address] [address] Chris, [facility], 120, [place] [id number], Ivan [facility] 120, [place], tel:[phone] [place], , [place]. [id number]. tel: tel: [phone] Associates [facility] Blighted ovum and Apr-0 Maxx In Womens nonhydatidiform 7-201 Anh. Danika QUIROGA, [facility] 7 700 PO Box Medical 1522, [place] Dr Chris, [facility], 120, [id number], [place], [place], tel:[phone] , [place]. tel: [phone] Associates [facility] Blighted ovum and Apr-0 Maxx Referring In Womens nonhydatidiform 6-201 Anh. Provider: Danika QUIROGA, [facility] 700 Anh PO Box test, Medical Maxx L, 1522, result [id number] Center [facility] Chris, weeks gestation , [facility], of 120, [place] [id number], Ivan [facility] 120, [place], tel:[phone] [place], , [place]. [id number]. tel: tel:[phone] Derek [place] Previous Low Apr-0 Maxx Referring In Womens Ultrasound Transverse 6-201 Anh. Provider: Danika QUIROGA, [id number] weeks 7 700 Anh PO Box gestation of Medical Maxx L, 1522, pregnancy Center [facility] Chris, [facility], incidental , [facility] [place], 120, Center [id number], [place], [facility] 120, [place], tel:[phone] [place], , [place]. [id number]. tel: tel:[phone] Derek [place] state, Mar-2 Maxx Referring In Womens incidental 9-201 Anh. Provider: Danika QUIROGA, 7 700 Anh PO Box [place], 1522, Center [facility] Dr Chris, [facility], 120, Center [id number], [place], [facility] 120, [place], tel:[phone] [place], , [place]. [id number]. tel: tel:[phone] Derek [place] state, Mar-2 Carr Referring In Womens incidental9 weeks 8-201 Mary. Provider: Danika QUIROGA, gestation of 7 700 Anh PO Box Medical Maxx [place], 1522, Center [facility] Dr Chris, [facility], 120, Center [id number], [place], [facility] 120, [place], tel:[phone] [place], , [place]. [id number]. tel: tel:[phone] Derek [place] Encounter for Mar-2 Maxx Referring In Womens test, 7-201 Anh. Provider: Danika QUIROGA, result unknown9 7 700 Anh PO Box weeks gestation Medical Maxx [place], 1522, of Center [facility] Dr Chris, [facility], 120, Center [id number], [place], [facility] 120, [place], tel:[phone] [place], , [place]. [id number]. 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 Provider: Danika QUIROGA, (routine) w/o abn 6 700 Anh PO Box findings Medical Maxx L, 1522, Center [address] Dr Chris, [facility] [place], 120, [place] [id number], [place], [facility] 120, [place], tel:[phone] [place], , [place]. [id number]. tel: tel:[phone] Derek [place] Dec- Maxx Referring In Womens 8-201 Anh. Provider: Danika QUIROGA, 5 700 Anh PO Box Medical Maxx L, 1522, [address], [facility] [place], 120, [place] , [facility], [place], tel:[phone] [place], , [place]. [id number]. tel: tel:[phone] Derek [place] Aug- Maxx Referring In Womens 8-201 Anh. Provider: Danika QUIROGA, 4 700 Anh PO Box Medical Maxx L, 1522, [address], [facility] [place], 120, [place] [id number], [facility], [place], tel:[phone] [place], , [place]. [id number]. tel: tel:[phone] Derek [place] Sep-0 Ibeth In Womens 5-201 Janee. Danika QUIROGA, 4 700 PO Box Medical 1522, [place] Dr Chris, [facility] [place], 120, [id number], [place], [place], tel:[phone] , [place]. tel: [phone] Family History Family Member Diagnosis Age At [...] older Payers Payer name Insurance type Covered republican ID Authorization(s) BCBS Out Of [place] [id number] [employer] Out [place] [id number] [employer] Out Of [place] [id number] Social History Type Description Quantity Date Captured [...] Leticia Judd BOOKED Future Order: Radiology Order Transvaginal Pelvic Ultrasound Ordered ([id number]) Future Order: Radiology Order Ultrasound < 14 wks ([id number]) Ordered Date Type Problem Goal Intervention Status [...]
--- OUTSIDE RECORDS SUMMARY | 2018-03-24 05:43 | External Medical Summary | Continuity of Care Document ---
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 Provider: ara Garrido w poor 8 700 Anh PO Box reprodctv or Medical Maxx L, 1522, obstet hx, third Center [address] [place], triPrevious Low Dr Abdullahi Medical [place], Transverse 120, Center [id number], [id number] weeks Ivan Abdullahi 120, [place] gestation of Ivan [place], tel: [phone] AMAN [phone] , [place]. [id number]. tel: tel: [phone] [facility] Suprvsn of preg w Apr-0 Maxx Referring In Womens poor reprodctv or 2-201 Anh. Provider: Health PA, obstet hx, third 8 700 Anh PO Box triPrevious Low Medical Maxx L, 1522, Transverse Center 700 [place], C-SectionEncounte Dr [facility], r for suprvsn of 120, Center [id number], normal , [place], Abdullahi 120, [place] third [id number] AMAN Ivan, tel:[phone] weeks gestation [phone] [place], of , [place]. [id number]. tel: tel:[phone] [facility] Suprvsn of preg w Apr-0 Maxx Referring In Womens Ultrasound poor reprodctv or 2-201 Anh. Provider: Danika QUIROGA obstet hx, third 8 700 Anh PO Box triPrevious Low Medical Maxx L, 1522, Transverse Center 700 [place], [id number] weeks Dr Rust Sammy [place], gestation of 120, Center , [place], Rust 120, [place] AMAN Ivan, tel:[phone] [place], , [place]. [id number]. tel: tel:[phone] [facility] Suprvsn of preg w Mar-2 Maxx Referring In Womens poor reprodctv or 1-201 Anh. Provider: Danika QUIROGA, obstet hx, third 8 700 Anh PO Box triPrevious Low Medical Maxx L, 1522, Transverse Center 700 [place], C-[facility]ter [facility] AMAN, r for suprvsn of 120, [place] [id number], normal , [place], Abdullahi 120, [place] third [id number] Ivan [place], tel:+[phone] weeks gestation [phone] [place], of , [place]. [id number]. tel: tel:[phone] [facility] Pain in right Mar-0 Maxx Referring In Womens hipSuprvsn of 7-201 Anh. Provider: Danika QUIROGA, preg w poor 8 700 Anh PO Box reprodctv or Medical Maxx L, 1522, obstet hx, third Center 700 [place], triPrevious Boris Greene, [facility], Transverse 120, Center [id number], C-SectionEncounte Ivan, Abdullahi 120, [place] r for suprvsn of KSIvan, tel: normal , [phone] [place], third [id number] , [place]. [id number]. weeks gestation tel: tel: of [phone] [facility] Suprvsn of preg w Maxx Referring In Womens poor reprodctv or 1-201 Anh. Provider: Health PA, obstet hx, second 8 700 Anh PO Box triPrevious Low Medical Maxx L, 1522, Transverse Center 700 [place], C-[id number] weeks , [facility] AMAN, gestation of 120, Center [id number], [place], Abdullahi 120, [place] Ivan [place], tel:[phone] [place], , [place]. [id number]. tel: tel: [phone] [facility] Suprvsn of preg w Maxx Referring In Womens poor reprodctv or 4-201 Anh. Provider: Health KIMBER, obstet hx, second 8 700 Anh PO Box triPrevious Low Medical Maxx L, 1522, Transverse Center 700 Vin PerezSectionWalter Greene [facility], r for suprvsn of 120, Center [id number], normal , [place], Rust 120, US second Ivan [place], tel: [id number] weeks [phone] [place], gestation of , [place]. [id number]. tel: tel: [phone] [facility] Suprvsn of preg w Maxx Referring In Womens poor reprodctv or 7-201 Anh. Provider: Health KIMBER, obstet hx, second 7 700 Anh PO Box triPrevious Low Medical Maxx L, 1522, Transverse Center [address] [place], C-SectionEncmigdalia Greene [facility], r for suprvsn of 120, Center [id number], normal , [place], Abdullahi 120, [place] second AMANIvan, tel: [id number] weeks [id number] [place], gestation of , [place]. [id number]. tel: tel:[phone] [facility] Suprvsn of preg w Dec-2 Maxx Referring In Womens Ultrasound poor reprodctv or 7-201 Anh. Provider: Danika QUIROGA, obstet hx, second 7 700 Anh PO Box tri19 weeks Medical Maxx L, 1522, gestation of Center [address] [place] [address], Dr [facility], 120, Center [id number], [place], Rust 120, [place] Ivan [place], tel:[phone] [place], , [place]. [id number]. tel: tel:[phone] [facility] Suprvsn of preg w Nov-2 Maxx Referring In Womens poor reprodctv or 9-201 Anh. Provider: Danika QUIROGA, obstet hx, second 7 700 Anh PO Box triPrevious Low Medical Maxx L, 1522, Transverse Center [address] [place] [address], C-Hpszxqg00 weeks Dr [facility], gestation of 120, Center [id number], [place], Rust 120, [place] Ivan [place], tel: [phone] [place], , [place]. [id number]. tel: tel:[phone] Associates [facility] Previous Low Sep-0 Maxx Referring In Womens Transverse 1-201 Anh. Provider: Danika QUIROGA, C-SectionEncounte 7 700 Anh PO Box r for suprvsn of Medical Maxx L, 1522, normal , Center [address] [place] [address], first Dr [facility], weeks gestation 120, Center [id number], of [place], Rust 120, [place] Ivan [place], tel:[phone] [place], , [place]. [id number]. tel: tel:[phone] [facility] Suprvsn of preg w Oct-1 Maxx Referring In Womens poor reprodctv or 1-201 Anh. Provider: Danika QUIROGA, obstet hx, first 7 700 Anh PO Box triPrevious Low Medical Maxx L, 1522, Transverse Center 700 [place], C-SectionEncntr , [facility], screen for 120, [place] [id number], infections w sexl Ivan, Rust 120, US mode of Ivan [place], tel:+ transmissEncounte [phone] [place], r for screening , [place]. [id number]. for oth tel: tel:[phone] infec/parastc [phone] diseasesEncounter for suprvsn of normal , first trimesterEncounte r for screening of motherLess than 8 weeks gestation of Associates Ivan Incomplete Aug-2 Maxx Referring In Womens spontaneous 1-201 Anh. Provider: Danika QUIROGA, without 7 700 Anh PO Box complication Medical Maxx L, 1522, Center [facility] Dr Chris, [facility], 120, [place] [id number], [facility], Ivan [place], tel: [phone] [place], , [place]. [id number]. tel: tel:[phone] Associates Ivan Incomplete Aug-0 Maxx In Womens spontaneous 9-201 Anh. Danika QUIROGA, without 7 700 PO Box complication Medical 1522, [place] Dr Chris, [facility], 120, , [place], [facility], tel: [phone] , [place]. tel: [phone] Derek [place] Threatened Aug-0 Maxx Referring In Womens 7-201 Anh. Provider: Danika QUIROGA, 7 700 Anh PO Box Medical Maxx L, 1522, Center [facility] Dr Chris, [facility], 120, [place] [id number], [facility] 120, Ivan [place], tel:[phone] [place], , [place]. [id number]. tel: tel:[phone] Associates Ivan Threatened Aug-0 Maxx In Womens 4-201 Anh. Danika QUIROGA, 7 700 PO Box Medical 1522, [place] Dr Chris, [facility], 120, [id number], [place], [place], tel:+ [phone] , [place]. tel: [phone] [facility] Encntr for f/u May-0 Maxx Referring In Womens exam aft trtmt 5-201 Anh. Provider: Danika QUIROGA, for cond oth than 7 700 Anh PO Box stanley allen Medical Maxx L, 1522, Center [address] Dr Chris, [facility] [place], 120, Center [id number], Ivan, Rust 120, [place] Ivan [place], tel:[phone] [place], , [place]. [id number]. tel: tel:[phone] Associates Ivan Incomplete March-1 Maxx Referring In Womens spontaneous 9-201 Anh. Provider: Danika QUIROGA, with 7 700 Anh PO Box other Medical Maxx L, 1522, complications Center [facility] Dr Chris, [facility], 120, Center [id number], [facility] 120, [place] Ivan [place], tel:[phone] [place], , [place]. [id number]. tel: tel:[phone] Associates Ivan Incomplete March-1 Maxx Referring In Womens spontaneous 7-201 Anh. Provider: Danika QUIROGA, with 7 700 Anh PO Box other Medical Maxx L, 1522, complications Center [address] Dr Chris, [facility] [place], 120, Center [id number], Ivan, Rust 120, [place] Ivan [place], tel:[phone] [place], , [place]. [id number]. tel: tel:[phone] Associates [facility] Incomplete May-1 Maxx Referring In Womens Ultrasound spontaneous 7-201 Anh. Provider: Danika QUIROGA, with 7 700 Anh PO Box other Medical Maxx L, 1522, complications Center [address] Dr Chris, [facility] [place], 120, Center [id number], Ivan, Rust 120, [place] Ivan [place], tel:[phone] [place], , [place]. [id number]. tel: tel: [phone] Associates Ivan Incomplete March- Maxx Referring In Womens spontaneous 6-201 Anh. Provider: Danika QUIROGA, with 7 700 Anh PO Box other Medical Maxx L, 1522, complications Center [facility] Dr Chris, [facility], 120, [place] [id number], [facility] 120, AMAN, Ivan, tel: [phone] [place], , . [id number]. tel: tel: [phone] [facility] Blighted ovum and Apr-2 Maxx Referring In Womens nonhydatidiform 4-201 Anh. Provider: Danika QUIROGA, mole 7 700 Anh PO Box Medical Maxx L, 1522, Center [facility] Dr Chris, [facility], 120, [place] [id number], [facility] 120, AMAN, Ivan, tel: [phone] [place], , [place]. [id number]. tel: tel: [phone] [facility] Blighted ovum and Apr-1 Maxx Referring In Womens nonhydatidiform 3-201 Anh. Provider: Danika QUIROGA, mole 7 700 Anh PO Box Medical Maxx L, 1522, Center [address], [facility], 120, [place] [id number], [facility] 120, Ivan [place], tel: [phone] [place], , [place]. [id number]. tel: tel: [phone] [facility] Blighted ovum and Apr-0 Maxx In Womens nonhydatidiform 7-201 Anh. Danika QUIROGA, mole 7 700 PO Box Medical 1522, [place] Dr Chris, [facility], 120, [id number], [place], [facility], tel: [phone] , [place]. tel: [phone] [facility] Blighted ovum and Apr-0 Maxx Referring In Womens nonhydatidiform 6-201 Anh. Provider: Danika QUIROGA, moleEncounter for 7 700 Anh PO Box test, Medical Maxx L, 1522, result [id number] Center [address] [place], weeks gestation Abdullahi Greene, of 120, Center [id number], Ivan, Rust 120, [place] Ivan [place], tel:[phone] [place], , [place]. [id number]. tel: tel:[phone] Associates Ivan Previous Low Apr-0 Maxx Referring In Womens Ultrasound Transverse 6-201 Anh. Provider: Danika QUIROGA, C-Section 7 700 Anh PO Box state, Medical Maxx L, 1522, [id number] Center 700 [place], weeks gestation , Rust Sammy [place], of 120, Center [id number], Ivan, Rust 120, [place] Ivan [place], tel:[phone] [place], , [place]. [id number]. tel: tel:[phone] Associates Ivan state, Mar-2 Maxx Referring In Womens incidental 9-201 Anh. Provider: Danika QUIROGA, 7 700 Anh PO Box Medical Maxx L, 1522, Center [address] Dr Chris, Rust Sammy [place], 120, Center [id number], Ivan, Rust 120, [place] Ivan [place], tel:[phone] [place], , [place]. [id number]. tel: tel:[phone] Associates Ivan state, Mar-2 Carr Referring In Womens incidental9 weeks 8-201 Mary. Provider: Danika QUIROGA, gestation of 7 700 Anh PO Box Medical Maxx L, 1522, Center [address] Medical [place], 120, Center [id number], Ivan, Rust 120, [place] Ivan [place], tel:[phone] [place], , [place]. [id number]. tel: tel:[phone] Associates Ivan Encounter for Mar-2 Maxx Referring In Womens test, 7-201 Anh. Provider: Danika QUIROGA, result unknown9 7 700 Anh PO Box weeks gestation Medical Maxx L, 1522, of Center [address] Dr Chris, [facility] [place], 120, Center [id number], Ivan, Rust 120, [place] Ivan [place], tel:[phone] [place], , [place]. [id number]. 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 Provider: Danika QUIROGA, (routine) w/o abn 6 700 Anh PO Box findings Medical Maxx L, 1522, Center Oz [address], [facility] [place], 120, Center [id number], Ivan, Rust 120, [place] Ivan [place], tel:[phone] [place], , [place]. [id number]. tel: tel: [phone] Derek [place] Dec- Maxx Referring In Womens 8-201 Anh. Provider: Danika QUIROGA, 5 700 Anh PO Box Medical Maxx L, 1522, Center [facility] Dr Chris, [facility] [place], 120, Center [id number], vIan, Rust 120, [place] Ivan [place], tel:[phone] [place], , [place]. [id number]. tel: tel:+ [phone] Derek [place] Aug-2 Maxx Referring In Womens 8-201 Anh. Provider: Danika QUIROGA, 4 700 Anh PO Box Medical Maxx L, 1522, Center [facility] Dr Chris, [facility] [place], 120, Center [id number], Ivan, Rust 120, [place] Ivan [place], tel:[phone] AM[place], , [place]. [id number]. tel: tel:[phone] Derek [place] Sep-0 Ibeth In Womens 5-201 Janee. Danika QUIROGA, 4 700 PO Box Medical 1522, Center Dr Chris, [place], 120, [id number], Ivan, AMAN, tel:[phone] , [place]. tel: [phone] Family History Family Member Diagnosis Age At [...] republican ID Authorization(s) BCBS Out Of [place] [id number] BCBS Out Of [place] [id number] BCBS Out Of [place] [id number] Social History Type Description Quantity Date Captured Alcohol Use Details Caffeine Use Details Unknown Tobacco Use Status Unknown Smoking Status Never smoker Vital Signs Date / Height Weight BMI Pulse Blood Temperature Respiratory Body Head BMI Time: Rate Pressure Rate Surface Circumference percentile Area 213.60 35.7 / lbs 6 mm[Hg] 9:13 kg/m AM eter (2) Chief Complaint And Reason For Visit Unknown Chief Complaint And Reason For Visit Reason For Referral Reason For Referral Unknown Plan Of Care Date Type Action Status Appointment Leticia Judd BOOKED Appointment Leticia Judd - [facility] [place] - RC/S, PPTL BOOKED Future Order: Radiology Order Transvaginal Pelvic Ultrasound Ordered ([id number]) Future Order: Radiology Order Complete OB Ultrasound > 14 Ordered Weeks ([id number]) Future Order: Radiology Order Ultrasound OB Follow-up ([id number]) Ordered Future Order: Radiology Order Ultrasound < 14 wks ([id number]) Ordered Date Type Problem Goal Intervention Status [...]
--- OUTSIDE RECORDS SUMMARY | 2018-03-24 05:43 | External Medical Summary | Continuity of Care Document ---
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 Incomplete spontaneous without complication 9 weeks gestation of - [...] with other complications Threatened Threatened Incomplete spontaneous - without complication state, incidental - 9 weeks gestation of - state, incidental - Active Irregular Bleeding Active Active Procedures Procedure Date Unknown Results Test Name Date and Time Measure Units Reference Range Abnormal Flag Comments Panel Description: Choriogonadotropin.beta subunit [Units/volume] in Serum or Plasma HCG, TOTAL, QN 13:28:00 <2 mIU/mL N Reference RangeNon or premenopausal <5Postmenopausal <10 Values from different assay methods may vary.The use of this assay to monitor or to diagnose patients with cancer or any condition unrelatedto has not been cleared or approved bythe FDA or the animal nursery worker of the assay.Test performed at [facility] [id number] [place] [address]Ijdtlghe: OPAL STONE DO,MPH Advance Directives Directive Yes / No Effective Date File Name Unknown Encounters Encounter Practice Location Reason(s) Diagnoses Date Provider Care Team Description For Visit Members Associates Ivan Incomplete Jun-2 Maxx Referring In Womens spontaneous 1-201 Anh. Provider: Danika QUIROGA, without 7 700 Anh PO Box complication Medical Maxx L, 1522, Center [address], [facility], 120, [place] [id number], [facility] 120, [facility], Ivan, tel:[phone] [place], , [place]. [id number]. tel: tel:[phone] Associates Ivan Incomplete Aug-0 Maxx In Womens spontaneous 9-201 Anh. Danika QUIROGA, without 7 700 PO Box complication Medical 1522, [place] Dr Chris, [facility], 120, [id number], [place], [facility], tel: [phone] , [place]. tel: [phone] [facility] Ivan Threatened Aug-0 Maxx Referring In Womens 7-201 Anh. Provider: Danika QUIROGA, 7 700 Anh PO Box Medical Maxx L, 1522, Center [address], [facility], 120, [place] [id number], [facility], Ivan [place], tel:[phone] [facility] , [place]. [id number]. tel: tel:+ [phone] Associates Ivan Threatened Jun-0 Maxx In Womens 4-201 Anh. Danika QUIROGA, 7 700 PO Box Medical 1522, Center Dr Chris, Abdullahi [place], 120, [id number], [place], [place], tel: [phone] , [place]. tel: [phone] [facility] Encntr for f/u May-0 Maxx Referring In Womens exam aft trtmt 5- Anh. Provider: Danika QUIROGA, for cond oth than 7 700 Anh PO Box stanley hooverm Medical Maxx L, 1522, Center [address], [facility] Medical [place], 120, Center [id number], Ivan, [facility] 120, [place] Ivan [place], tel: [phone] [place], , [place]. [id number]. tel: tel: [phone] Associates Ivan Incomplete March- Maxx Referring In Womens spontaneous - Anh. Provider: Danika QUIROGA, with 7 700 Anh PO Box other Medical Maxx L, 1522, complications Center [address], [facility] [place], 120, Center [id number], Ivan, [facility] 120, [place] Ivan [place], tel: [phone] [place], , [place]. [id number]. tel: tel: [phone] Associates Ivan Incomplete March- Maxx Referring In Womens spontaneous -201 Anh. Provider: Danika QUIROGA, with 7 700 Anh PO Box other Medical Maxx L, 1522, complications Center [address], [facility] Medical [place], 120, Center [id number], Ivan, [facility] 120, [place] Iavn [place], tel:[phone] [place], , [place]. [id number]. tel: tel: [phone] Associates Ivan Incomplete March-1 Maxx Referring In Womens Ultrasound spontaneous 7- Anh. Provider: Danika QUIROGA, with 7 700 Anh PO Box other Medical Maxx L, 1522, complications Center [address], [facility], 120, Center [id number], [facility] 120, Ivan [place], tel:+ [phone] [place], , [place]. [id number]. tel: tel:[phone] Associates Ivan Incomplete March- Maxx Referring In Womens spontaneous 6-201 Anh. Provider: Danika QUIROGA, with 7 700 Anh PO Box other Medical [facility] L, 1522, complications Center [facility] Dr Chris, [facility], 120, [place] [id number], [facility] 120, Ivan [place], tel:[phone] [place], , [place]. [id number]. tel: tel:[phone] [facility] Ivan Blighted ovum and Feb-2 Maxx Referring In Womens nonhydatidiform 4-201 Anh. Provider: Danika QUIROGA, mole 7 700 Anh PO Box Medical [facility] L, 1522, Center [address], [facility], 120, [place] [id number], [facility] 120, Ivan [place], tel:[phone] [place], , [place]. [id number]. tel: tel:[phone] Associates Ivan Blighted ovum and Feb-1 Maxx Referring In Womens nonhydatidiform 3-201 Anh. Provider: Danika QUIROGA, mole 7 700 Anh PO Box Medical [facility] L, 1522, Center [address], [facility], 120, [place] [id number], [facility] 120, Ivan [place], tel:[phone] [place], , [place]. [id number]. tel: tel:[phone] [facility] Blighted ovum and Apr-0 Maxx In Womens nonhydatidiform 7-201 Anh. Danika QUIROGA, mole 7 700 PO Box Medical 1522, [place] Dr Chris, [facility] [place], 120, [id number], Ivan, AMAN, tel:[phone] , [place]. tel: [phone] [facility] Ivan Blighted ovum and Apr-0 Maxx Referring In Womens nonhydatidiform 6-201 Anh. Provider: Danika QUIROGA, moleEncounter for 7 700 Anh PO Box test, Medical Maxx L, 1522, result [id number] Center 700 [place], weeks gestation , Abdullahi [place], of 120, Center [id number], Ivan, [facility] 120, [place] Ivan [place], tel: [phone] [place], , [place]. [id number]. tel: tel: [phone] Associates Ivan Previous Low Apr-0 Maxx Referring In Womens Ultrasound Transverse 6-201 Anh. Provider: Danika QUIROGA, [id number] weeks 7 700 Anh PO Box gestation of Medical Maxx L, 1522, pregnancy Center [address] [place] [address], state, incidental Dr [facility], 120, Center [id number], Ivan, [facility] 120, [place] Ivan [place], tel:[phone] [place], , [place]. [id number]. tel: tel: [phone] Associates Ivan state, Mar-2 Maxx Referring In Womens incidental 9-201 Anh. Provider: Danika QUIROGA, 7 700 Anh PO Box Medical Maxx L, 1522, Center [address] Dr Chris, [facility], 120, Center [id number], Ivan, [facility] 120, [place] Ivan [place], tel:[phone] [place], , [place]. [id number]. tel: tel: [phone] Associates Ivan state, Mar-2 Carr Referring In Womens incidental9 weeks 8-201 Mary. Provider: Danika QUIROGA, gestation of 7 700 Anh PO Box Medical Maxx L, 1522, Center [address] Dr Chris, Abdullahi Sammy [place], 120, Center [id number], Ivan, [facility] 120, [place] Ivan [place], tel:[phone] [place], , [place]. [id number]. tel: tel:+ [phone] Derek [place] 9 weeks gestation Mar-2 Maxx Referring In Womens of 7-201 Anh. Provider: Danika QUIROGA, pregnancyEncounte 7 700 Anh PO Box r for Medical Maxx L, 1522, test, result Center [address], [facility] Medical [place], 120, Center [id number], Ivan, [facility] 120, Ivan [place], tel:+ [phone] [place], , [place]. [id number]. 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 Provider: Danika QUIROGA, (routine) w/o abn 6 700 Anh PO Box findings Medical Maxx L, 1522, Center [address] Dr Chris, [facility], 120, Center [id number], Ivan, [facility] 120, Ivan [place], tel:[phone] [place], , [place]. [id number]. tel: tel:[phone] Derek [place] Fe- Maxx Referring In Womens 8-201 Anh. Provider: Danika QUIROGA, 5 700 Anh PO Box Medical Maxx L, 1522, Center [address], [facility] [place], 120, Center [id number], Ivan, [facility] 120, [place] Ivan [place], tel:+ [phone] [place], , [place]. [id number]. tel: tel:[phone] Derek [place] Oct-2 Maxx Referring In Womens 8-201 Anh. Provider: Danika QUIROGA, 4 700 Anh PO Box Medical Maxx L, 1522, Center [address], [facility] [place], 120, Center [id number], Ivan, [facility] 120, [place] Ivan [place], tel:[phone] [place], , [place]. [id number]. tel: tel:[phone] Derek [place] Sep-0 Ibeth In Womens 5-201 Janee. [facility], [address] [facility] 15[address], [place] [address] Chris, [facility], 120, [id number], [facility] [place], tel:[phone] [address]276 , . tel: [phone] Family History Family Member Diagnosis Age At [...] party ID Authorization(s) BCBS Out Of State [id number] BCBS Out Of [place] [id number] BCBS Out Of [place] [id number] Social History Type Description Quantity Date Captured [...] Leticia Judd BOOKED Future Order: Radiology Order Ultrasound < 14 wks ([id number]) Ordered Future Order: Radiology Order Transvaginal Pelvic Ultrasound Ordered ([id number]) Date Type Problem Goal Intervention Status Start [...]
--- OUTSIDE RECORDS SUMMARY | 2018-03-24 05:43 | External Medical Summary | Continuity of Care Document ---
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 Provider: Danika QUIROGA, C-SectionEncounte 7 700 Anh PO Box r for suprvsn of Medical Maxx L, 1522, normal , Center [address] [place] [address], first [email or web address] , [facility] Sammy [place], weeks gestation 120, [place] [id number], of [facility] 120, [place], tel: [phone] [place], , [place]. [id number]. tel: tel: [phone] Associates Ivan Suprvsn of preg w Maxx Referring In Womens poor reprodctv or 1-201 Anh. Provider: Danika QUIROGA, obstet hx, first 7 700 Anh PO Box triPrevious Low Medical Maxx L, 1522, Transverse Center 700 [place], C-SectionEncntr Dr [facility] AMAN, screen for 120, Center [id number], infections w sexl [facility] 120, [place] mode of Ivan [place], tel:[phone] transmissEncounte [phone] [place], r for screening , [place]. [id number]. for oth tel: tel:[phone] infec/parastc [phone] diseasesEncounter for suprvsn of normal , first trimesterEncounte r for screening of motherLess than 8 weeks gestation of Associates Ivan Incomplete Aug-2 Maxx Referring In Womens spontaneous 1-201 Anh. Provider: Danika QUIROGA, without 7 700 Anh PO Box complication Medical Maxx L, 1522, Center [facility] Dr Chris, [facility], 120, [place] [id number], [facility], [facility], tel: [phone] [place], , [place]. [id number]. tel: tel: [phone] Associates Ivan Incomplete Aug-0 Maxx In Womens spontaneous 9- Anh. Danika QUIROGA, without 7 700 PO Box complication Medical 1522, [place] Dr Chris, [facility], 120, [id number], [place], [facility], tel: [phone] , [place]. tel: [phone] Associates Ivan Threatened Aug-0 Maxx Referring In Womens 7-201 Anh. Provider: Danika QUIROGA, 7 700 Anh PO Box Medical Maxx L, 1522, [place] [address], [facility], 120, [place] [id number], [facility] 120, Ivan [place], tel: [phone] [place], , [place]. [id number]. tel: tel: [phone] Derek [place] Threatened Aug-0 Maxx In Womens 4-201 Anh. Health KIMBER, 7 700 PO Box Medical 1522, [place] Dr Chris, [facility] [place], 120, [id number], [place], [facility], tel: [phone] , [place]. tel: [phone] Derek [place] Encntr for f/u Irving-0 Maxx Referring In Womens exam aft trtmt 5-201 Anh. Provider: Danika QUIROGA, for cond oth than 7 700 Anh PO Box malig neoplm Medical Maxx L, 1522, Center [facility] Dr Chris, [facility] [place], 120, Center [id number], [place], [facility] 120, [place], tel:[phone] [place], , [place]. [id number]. tel: tel:[phone] Associates Ivan Incomplete May-1 Maxx Referring In Womens spontaneous 9-201 Anh. Provider: Danika QUIROGA, with 7 700 Anh PO Box other Medical Maxx L, 1522, complications Center [address] Dr Chris, [facility] Medical [place], 120, Center [id number], [place], [facility] 120, [place], tel:[phone] [place], , [place]. [id number]. tel: tel:[phone] Associates Ivan Incomplete May-1 Maxx Referring In Womens spontaneous 7-201 Anh. Provider: Danika QUIROGA, with 7 700 Anh PO Box other Medical Maxx L, 1522, complications Center [facility] Dr Chris, [facility] Medical [place], 120, Center [id number], [place], [facility] 120, [place], tel:[phone] [place], , [place]. [id number]. tel: tel:[phone] Associates Ivan Incomplete May-1 Maxx Referring In Womens Ultrasound spontaneous 7-201 Anh. Provider: Danika QUIROGA, with 7 700 Anh PO Box other Medical Maxx L, 1522, complications Center [facility] Dr Chris, [facility] Medical [place], 120, Center [id number], Ivan, [facility] 120, [place], tel:[phone] [place], , [place]. [id number]. tel: tel:[phone] Associates Ivan Incomplete May-1 Maxx Referring In Womens spontaneous 6-201 Anh. Provider: Danika QUIROGA, with 7 700 Anh PO Box other Medical Maxx L, 1522, complications Center [facility] Dr Chris, [facility] Medical [place], 120, Center [id number], Ivan, [facility] 120, [place], tel:[phone] [place], , [place]. [id number]. tel: tel: [phone] Associates Ivan Blighted ovum and Apr-2 Maxx Referring In Womens nonhydatidiform 4-201 Anh. Provider: Danika QUIROGA [facility] 7 700 Anh PO Box Medical Maxx L, 1522, Center [facility] Dr Chris, [facility], 120, [place] [id number], Ivan [facility] 120, Ivan [place], tel:[phone] [place], , [place]. [id number]. tel: tel: [phone] Associates Ivan Blighted ovum and Apr-1 Maxx Referring In Womens nonhydatidiform 3-201 Anh. Provider: Danika QUIROGA [facility] 7 700 Anh PO Box Medical Maxx L, 1522, [place] [address] [address] Chris, [facility], 120, [place] [id number], Ivan [facility] 120, Ivan [place], tel:[phone] [place], , [place]. [id number]. tel: tel: [phone] Associates [facility] Blighted ovum and Apr-0 Maxx In Womens nonhydatidiform 7-201 Anh. Danika QUIROGA, [facility] 7 700 PO Box Medical 1522, [place] Dr Chris, [facility], 120, [id number], [place], [place], tel:[phone] , [place]. tel: [phone] Associates [facility] Blighted ovum and Apr-0 Maxx Referring In Womens nonhydatidiform 6-201 Anh. Provider: Danika QUIROGA, [facility] 7 700 Anh PO Box test, Medical Maxx L, 1522, result [email or web address] Center [facility] [place], weeks gestation , [facility], of 120, [place] [id number], Ivan [facility] 120, [place], tel:[phone] [place], , [place]. [id number]. tel: tel:[phone] [place] Previous Low Apr-0 Maxx Referring In Womens Ultrasound Transverse 6-201 Anh. Provider: Danika QUIROGA, C-Section 7 700 Anh PO Box state, Medical Maxx L, 1522, [email or web address] Center 700 [place], weeks gestation , [facility] AM[place], of 120, Center [id number], [place], [facility] 120, [place], tel:[phone] [place], , [place]. [id number]. tel: tel:[phone] Derek [place] state, Mar-2 Maxx Referring In Womens incidental 9-201 Anh. Provider: Danika QUIROGA, 7 700 Anh PO Box Medical Maxx [place], 1522, Center [address], [facility], 120, Center [id number], Ivan, [facility] 120, [place], tel:[phone] [place], , [place]. [id number]. tel: tel:[phone] Derek [place] state, Mar-2 Carr Referring In Womens incidental9 weeks 8-201 Mary. Provider: Danika QUIROGA, gestation of 7 700 Anh PO Box Medical Maxx [place], 1522, Center [address], [facility], 120, Center [id number], Ivan, [facility] 120, [place], tel:[phone] [place], , [place]. [id number]. tel: tel:[phone] Derek [place] Encounter for Mar-2 Maxx Referring In Womens test, 7-201 Anh. Provider: Danika QUIROGA, result unknown9 7 700 Anh PO Box weeks gestation Sammy [place], 1522, of Center [address], [facility], 120, Center [id number], Ivan, [facility] 120, [place], tel:[phone] [place], , [place]. [id number]. 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 Provider: Danika QUIROGA, (routine) w/o abn 6 700 Anh PO Box findings Medical Maxx L, 1522, Center [address] Dr Chris, [facility] [place], 120, Center [id number], Ivan, [facility] 120, Ivan [place], tel:[phone] [place], , [place]. [id number]. tel: tel:[phone] Derek [place] Dec- Maxx Referring In Womens 8-201 Anh. Provider: Danika QUIROGA, 5 700 Anh PO Box Medical Maxx L, 1522, Center [address], [facility] [place], 120, [place] [id number], [facility], Ivan [place], tel:[phone] [place], , [place]. [id number]. tel: tel:[phone] Derek [place] Aug- Maxx Referring In Womens 8-201 Anh. Provider: Dnaika QUIROGA, 4 700 Anh PO Box Medical Maxx L, 1522, Center [facility] Dr Chris, [facility] [place], 120, [place] [id number], [facility] 120, [place], tel:[phone] [place], , . [id number]. tel: tel:[phone] Derek [place] Sep-0 Ibeth In Womens 5-201 Janee. Danika QUIROGA, 4 700 PO Box Medical 1522, [place] Dr Chris, [facility] [place], 120, [id number], Ivan, AMAN, tel:[phone] , [place]. tel: [phone] Family History Family Member Diagnosis Age At [...] party ID Authorization(s) BCBS Out Of State [id number] BCBS Out Of [place] BL [id number] BCBS Out Of [place] [id number] Social History Type Description Quantity Date Captured Alcohol Use Details Caffeine Use Details Unknown Tobacco Use Status Unknown Smoking Status Never smoker Vital Signs Date / Height Weight BMI Pulse Blood Temperature Respiratory Body Head BMI Time: Rate Pressure Rate Surface Circumference percentile Area 179.30 30.0 115/ lbs 2 mm[Hg] 3:11 kg/m PM eter (2) Chief Complaint And Reason For Visit Unknown Chief Complaint And Reason For Visit Reason For Referral Reason For Referral Unknown Plan Of Care Date Type Action Status Appointment Leticia Judd BOOKED Future Order: Radiology Order Transvaginal Pelvic Ultrasound Ordered ([id number]) Future Order: Radiology Order Ultrasound < 14 wks ([id number]) Ordered Date Type Problem Goal Intervention Status [...]
--- OUTSIDE RECORDS SUMMARY | 2018-03-24 05:44 | External Medical Summary | Continuity of Care Document ---
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 findings [...] complications Incomplete spontaneous with - other complications state, incidental - Previous Low Transverse - state, incidental - 10 weeks gestation of - Incomplete spontaneous with other complications Incomplete spontaneous with other complications Threatened Incomplete spontaneous without complication Incomplete spontaneous - without complication 9 weeks gestation of - state, incidental - Active Irregular Bleeding Active Active Procedures Procedure Date HCG, Quantitative Venpnctr fngr/heel/ear stick routne Results Test Name Date and Time Measure Units Reference Range Abnormal Flag Comments Panel Description: Choriogonadotropin.beta subunit [Units/volume] in Serum or Plasma HCG, TOTAL, QN 09:14:00 195 mIU/mL H Reference RangeNon or premenopausal <5Postmenopausal <10 Values from different assay methods may vary.The use of this assay to monitor or to diagnose patients with cancer or any condition unrelatedto has not been cleared or approved bythe FDA or the station agent of the assay.REPORT COMMENT:FASTING:NOTest performed at [facility] [id number] [place] [address]Iqhgamef: OPAL STONE DO,MPH Advance Directives Directive Yes / No Effective Date File Name Unknown Encounters Encounter Practice Location Reason(s) Diagnoses Date Provider Care Team Description For Visit Members [facility] Ivan Incomplete Jun-2 Maxx Referring In Womens spontaneous Anh. Provider: Health [place], without 7 700 Anh PO Box complication Medical Maxx L, 1522, Center [facility] Dr Chris, [facility], 120, [place] [id number], [facility], [facility], Ivan, tel:[phone] [place], [phone] , [place]. [id number]. tel: tel: [phone] Associates Ivan Incomplete Aug-0 Maxx In Womens spontaneous - Anh. Health [place], without 7 700 PO Box complication Medical 1522, Center Dr Chris, [facility] [place], 120, [id number], Ivan, [facility], tel: [phone] , [place]. tel: [phone] Derek [place] Threatened Aug-0 Maxx Referring In Womens - Anh. Provider: Health [place], 7 700 Anh PO Box Medical Maxx L, 1522, Center [address], [facility], 120, [place] [id number], Ivan [facility] 120, Ivan [place], tel:[phone] [place], , [place]. [id number]. tel: tel: [phone] Associates Ivan Threatened Aug-0 Maxx In Womens 4-201 Anh. Health KIMBER, 7 700 PO Box Medical 1522, Center Dr Chris, [facility] [place], 120, [id number], [place], [place], tel: [phone] , [place]. tel: [phone] [facility] Encntr for f/u May-0 Maxx Referring In Womens exam aft trtmt 5-201 Anh. Provider: Danika QUIROGA, for cond oth than 7 700 Anh PO Box stanley geovannyplm Medical Maxx L, 1522, Center [address], [facility], 120, Center [id number], Ivan [facility] 120, [place], tel:[phone] [place], , [place]. [id number]. tel: tel: [phone] Associates Ivan Incomplete March- Maxx Referring In Womens spontaneous - Anh. Provider: Danika QUIROGA, with 7 700 Anh PO Box other Medical Maxx L, 1522, complications Center [address], [facility], 120, Center [id number], Ivan [facility] 120, [place], tel: [phone] [place], , [place]. [id number]. tel: tel: [phone] Associates Ivan Incomplete March- Maxx Referring In Womens spontaneous -201 Anh. Provider: Danika QUIROGA, with 7 700 Anh PO Box other Medical Maxx L, 1522, complications Center [address], [facility], 120, Center [id number], [facility], [place], tel:[phone] [place], , [place]. [id number]. tel: tel:[phone] Associates Ivan Incomplete March-1 Maxx Referring In Womens Ultrasound spontaneous 7-201 Anh. Provider: Health KIMBER, with 7 700 Anh PO Box other Medical Maxx L, 1522, complications Center [facility] Dr Chris, [facility] [place], 120, Center [id number], Ivan, [facility] 120, [place], tel:+ [phone] [place], , [place]. [id number]. tel: tel:[phone] Associates Ivan Incomplete March- Maxx Referring In Womens spontaneous 6-201 Anh. Provider: Danika QUIROGA, with 7 700 Anh PO Box other Medical Maxx L, 1522, complications Center [facility] Dr Chris, [facility] [place], 120, Center [id number], Ivan, [facility] 120, [place], tel:[phone] [place], , [place]. [id number]. tel: tel:[phone] Associates Ivan Blighted ovum and Apr-2 Maxx Referring In Womens nonhydatidiform 4-201 Anh. Provider: Danika QUIROGA [facility] 7 700 Anh PO Box Medical Maxx L, 1522, Center [address], [facility], 120, Center [id number], Ivan [facility] 120, [place], tel:+ [phone] [place], , [place]. [id number]. tel: tel:[phone] Associates Ivan Blighted ovum and Apr-1 Maxx Referring In Womens nonhydatidiform 3-201 Anh. Provider: Danika QUIROGA [facility] 7 700 Anh PO Box Medical Maxx L, 1522, Center [address], [facility] [place], 120, Center [id number], Ivan [facility] 120, [place], tel:[phone] [place], , [place]. [id number]. tel: tel:[phone] Associates Ivan Blighted ovum and Apr-0 Maxx In Womens nonhydatidiform 7-201 Anh. Danika QUIROGA, [facility] 7 700 PO Box Medical 1522, [place] Dr Chris, [facility] [place], 120, [id number], [place], [place], tel: [phone] , [place]. tel: [phone] Derek [place] Blighted ovum and Apr-0 Maxx Referring In Womens nonhydatidiform 6-201 Anh. Provider: Danika QUIROGA, moleEncounter for 7 700 Anh PO Box test, Medical Maxx L, 1522, result Center 700 [place], weeks gestation Dr [facility] Sammy [place], of 120, Center [id number], Ivan, [facility] 120, [place], tel:+ [phone] [place], , [place]. [id number]. tel: tel:[phone] Derek [place] Previous Low Apr-0 Maxx Referring In Womens Ultrasound Transverse 6-201 Anh. Provider: Danika QUIROGA, C-Section 7 700 Anh PO Box state, Medical Maxx L, 1522, [id number] Center 700 [place], weeks gestation Dr [facility] Sammy [place], of 120, Center [id number], Ivan, [facility] 120, [place], tel:+ [phone] [place], , [place]. [id number]. tel: tel:[phone] Derek [place] state, Mar-2 Maxx Referring In Womens incidental 9-201 Anh. Provider: Danika QUIROGA, 7 700 Anh PO Box Medical Maxx L, 1522, Center [facility] Dr Chris, [facility], 120, Center [id number], Ivan, [facility] 120, [place], tel:[phone] [place], , [place]. [id number]. tel: tel:[phone] Derek [place] 9 weeks gestation Mar-2 Carr Referring In Womens of 8-201 Mary. Provider: Danika QUIROGA, pregnancy 7 700 Anh PO Box state, incidental Medical Maxx L, 1522, Center [address] [facility], 120, Center [id number], Ivan, [facility] 120, [place], tel:[phone] [place], , [place]. [id number]. tel: tel:[phone] Derek [place] Encounter for Mar-2 Maxx Referring In Womens test, 7 Anh. Provider: Danika QUIROGA, result unknown9 7 700 Anh PO Box weeks gestation Medical Maxx L, 1522, of Center [address], [facility], 120, Center [id number], Ivan [facility] 120, [place], tel:[phone] [place], , [place]. [id number]. 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 Provider: Danika QUIROGA, (routine) w/o abn 6 700 Anh PO Box findings Medical Maxx L, 1522, Center [address], [facility], 120, Center [id number], Ivan [facility] 120, [place], tel:[phone] [place], , [place]. [id number]. tel: tel:[phone] Derek [place] Dec- Maxx Referring In Womens 8- Anh. Provider: Danika QUIROGA, 5 700 Anh PO Box Medical Maxx L, 1522, Center [address], [facility], 120, Center [id number], Ivan [facility] 120, [place], tel:[phone] [place], , [place]. [id number]. tel: tel:[phone] Derek [place] Aug-2 Maxx Referring In Womens 8-201 Anh. Provider: Danika QUIROGA, 4 700 Anh PO Box Medical Maxx L, 1522, Center [address], [facility] [place], 120, Center [id number], Ivan [facility] 120, [place], tel:[phone] [place], , [place]. [id number]. tel: tel: [phone] Associates [place] Sep-0 Ibeth In Womens 5-201 Janee. [facility], 4 700 PO [facility] 1522, [place] Dr Chris, [facility], 120, [id number], [place], [place], tel:[phone] , [place]. tel: [phone] Family History Family Member Diagnosis Age At [...] republican ID Authorization(s) BCBS Out Of [place] [id number] BCBS Out Of [place] [id number] BCBS Out Of [place] [id number] Social History Type Description Quantity Date Captured Alcohol Use Details Unknown Caffeine Use Details Unknown Tobacco Use Status Unknown Smoking Status Unknown Vital Signs Date / Height Weight BMI Pulse Blood Temperature Respiratory Body Head BMI Time: Rate Pressure Rate Surface Circumference percentile Area Unknown Chief Complaint And Reason For Visit Unknown Chief Complaint And Reason For Visit Reason For Referral Reason For Referral Unknown Plan Of Care Date Type Action Status Appointment Leticia Judd BOOKED Future Order: Radiology Order Transvaginal Pelvic Ultrasound Ordered ([id number]) Future Order: Radiology Order Ultrasound < 14 wks ([id number]) Ordered Date Type Problem Goal Intervention Status [...]
--- OUTSIDE RECORDS SUMMARY | 2018-03-24 05:44 | External Medical Summary | Continuity of Care Document ---
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) - (routine) w/o abn findings Encounter for test, result - unknown 9 weeks gestation of - Blighted ovum and nonhydatidiform mole - Encounter for test, result - unknown 10 weeks gestation of - Blighted ovum and nonhydatidiform mole - Blighted ovum and nonhydatidiform mole - Blighted ovum and nonhydatidiform mole Incomplete spontaneous with other complications state, incidental - 9 weeks gestation of - state, incidental - Previous Low Transverse - 10 weeks gestation of - state, incidental - Incomplete spontaneous with other complications Incomplete spontaneous with - other complications Incomplete spontaneous with other complications Active Irregular Bleeding Active Active Procedures Procedure Date Postop followup visit Results Test Name Date and Time Measure Units Reference Range Abnormal Flag Comments Unknown Advance Directives Directive Yes / No Effective Date File Name Unknown Encounters Encounter Practice Location Reason(s) Diagnoses Date Provider Care Team Description For Visit Members [facility] post-operati Encntr for f/u Maxx Referring In Womens ve exam aft trtmt 5-201 Anh. Provider: Danika QUIROGA, examination for cond oth 7 700 Anh PO Box (chief [facility] Medical Maxx L, 1522, complaint) neoplm Center [facility] Dr Chris, [facility] [place], 120, Center [id number], Ivan, [facility] 120, [place], tel:[phone] [place], , [place]. [id number]. tel: tel:[phone] [facility] Incomplete March- Maxx Referring In Womens spontaneous - Anh. Provider: Danika QUIROGA, with 7 700 Anh PO Box other Medical Maxx L, 1522, complications Center [facility] Dr Chris, [facility] [place], 120, Center [id number], Ivan, [facility] 120, [place], tel:[phone] [place], , [place]. [id number]. tel: tel:[phone] [facility] Incomplete March- Maxx Referring In Womens spontaneous 7-201 Anh. Provider: Danika QUIROGA, with 7 700 Anh PO Box other Medical Maxx L, 1522, complications Center [facility] Dr Chris, [facility] [place], 120, Center [id number], Ivan, [facility] 120, [place], tel:[phone] [place], , [place]. [id number]. tel: tel:[phone] [facility] Incomplete March-1 Maxx Referring In Womens Ultrasound spontaneous 7- Anh. Provider: Danika QUIROGA, with 7 700 Anh PO Box other Medical Maxx L, 1522, complications Center [facility] Dr Chris, [facility] [place], 120, Center [id number], Ivan, [facility] 120, [place], tel:[phone] [place], , [place]. [id number]. tel: tel: [phone] [facility] Incomplete May- Maxx Referring In Womens spontaneous 6-201 Anh. Provider: Danika QUIROGA, with 7 700 Anh PO Box [facility] Medical Maxx L, 1522, complications Center [facility] Dr Chris, [facility] [place], 120, [place] [id number], [facility], Ivan [place], tel: [phone] [place], , [place]. [id number]. tel: tel: [phone] [facility] Blighted ovum Apr-2 Maxx Referring In Womens and 4-201 Anh. Provider: Danika QUIROGA, nonhydatidiform 7 700 Anh PO Box mole Medical Maxx L, 1522, Center [facility] Chris, , [facility], 120, [place] , [facility] 120, Ivan [place], tel: [phone] [place], , [place]. [id number]. tel: tel: [phone] [facility] Blighted ovum Apr-1 Maxx Referring In Womens and 3-201 Anh. Provider: Danika QUIROGA, nonhydatidiform 7 700 Anh PO Box mole Medical Maxx L, 1522, Center [facility] Dr Chris, [facility], 120, [place] [id number], [facility], Ivan [place], tel:[phone] [place], , [place]. [id number]. tel: tel: [phone] [facility] Blighted ovum Apr-0 Maxx In Womens and 7-201 Anh. Danika QUIROGA, nonhydatidiform 7 700 PO Box [facility] Medical 1522, [place] Dr Chris, [facility] [place], 120, [id number], Ivan, [place], tel: [phone] , [place]. tel: [phone] [facility] Blighted ovum Apr-0 Maxx Referring In Womens and 6-201 Anh. Provider: Danika QUIROGA, nonhydatidiform 7 700 Anh PO Box moleEncounter Medical Maxx L, 1522, for Center [facility] Chris, test, result , [facility] Sammy [place], [id number] weeks 120, Center [id number], gestation of [place], [facility] 120, [place], tel:[phone] [place], , [place]. [id number]. tel: tel:[phone] Derek [place] Previous Low Apr-0 Maxx Referring In Womens Ultrasound Transverse 6-201 Anh. Provider: Danika QUIROGA, [id number] 7 700 Anh PO Box weeks gestation Medical Maxx Sil[place], 1522, of Center [facility] Chris pregnancyPregna , [facility] [place], nt state, 120, Center [id number], incidental [place], [facility] 120, [place], tel:[phone] [place], , [place]. [id number]. tel: tel:[phone] Derek [place] state, Mar-2 Maxx Referring In Womens incidental 9-201 Anh. Provider: Danika QUIROGA, 7 700 Anh PO Box Sammy Lilly L, 1522, Center [address], [facility], 120, Center [id number], Ivan, [facility] 120, [place], tel:[phone] [place], , [place]. [id number]. tel: tel:[phone] Derek [place] state, Mar-2 Carr Referring In Womens incidental9 8-201 Mary. Provider: Danika QUIROGA, weeks gestation 7 700 Anh PO Box of [place], 1522, Center [facility] Dr Chris, [facility], 120, Center [id number], Ivan, [facility] 120, [place], tel:[phone] [place], , [place]. [id number]. tel: tel:[phone] Derek [place] Encounter for Mar-2 Maxx Referring In Womens test, 7-201 Anh. Provider: Danika QUIROGA, result unknown9 7 700 Anh PO Box weeks gestation Medical Maxx L, 1522, of Center [address], [facility] [place], 120, Center [id number], Ivan [facility] 120, [place], tel:[phone] [place], , [place]. [id number]. 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 Provider: Danika QUIROGA, (routine) w/o 6 700 Anh PO Box abn findings Medical Maxx L, 1522, Center [address], [facility] [place], 120, Center [id number], Ivan [facility] 120, [place], tel:[phone] [place], , [place]. [id number]. tel: tel:[phone] Derek [place] Dec- Maxx Referring In Womens 8-201 Anh. Provider: Danika QUIROGA, 5 700 Anh PO Box Medical Maxx L, 1522, Center [address], [facility] [place], 120, Center [id number], Ivan [facility] 120, [place], tel:[phone] [place], , [place]. [id number]. tel: tel:[phone] Derek [place] Aug- Maxx Referring In Womens 8-201 Anh. Provider: Danika QUIROGA, 4 700 Anh PO Box Medical Maxx L, 1522, Center [address], [facility] [place], 120, Center [id number], Ivan [facility] 120, [place], tel:[phone] [place], , [place]. [id number]. tel: tel:[phone] Derek [place] Sep-0 Ibeth In Womens 5-201 Janee. Danika QUIROGA, 4 700 PO Box Medical 1522, Center Dr Chris, [facility] [place], 120, [id number], [facility], tel:[phone] , . tel:[phone] Family History Family Member Diagnosis Age At [...] libertarian ID Authorization(s) BCBS Out Of [place] [id number] [employer] [place] [id number] [employer] [place] [id number] Social History Type Description Quantity Date Captured Alcohol Use Details Caffeine Use Details combo 1 per day per day Tobacco Use Status Never smoked tobacco Smoking Status Never smoker Vital Signs Date / Height Weight BMI Pulse Blood Temperature Respiratory Body Head BMI Time: Rate Pressure Rate Surface Circumference percentile Area 171.20 49 lbs /min mm[Hg] 9:43 AM Chief Complaint And Reason For Visit Most recent encounter only, dated '05/18/2017 09:30'. post-operative examination (chief complaint). Description: S/P d&c 04/04/17 for SAb. She had a heavy period 05/11/17 that has now stopped. Denies pain or bleeding. She's concerned becauseit took about 8 months to conceive. Only took a month first . Reason For Referral Reason For Referral Unknown Plan Of Care Date Type Action Status Future Order: Radiology Order Ultrasound < 14 wks ([id number]) Ordered Future Order: Radiology Order Transvaginal Pelvic Ultrasound Ordered ([id number]) Date Type Problem Goal Intervention Status Start Date Unknown. History Of Present Illness Encounter Date Complaint History Of Present Illness post-operative examination S/P d&c 04/04/17 for SAb. She had a heavy period 05/11/17 that has now stopped. Denies pain or bleeding. She's concerned because it took about 8 months to conceive. Only took a month first . Functional Status Encounter Date Functional Assessment Cognitive [...]
--- OUTSIDE RECORDS SUMMARY | 2018-03-24 05:44 | External Medical Summary | Continuity of Care Document ---
:1985 Author Organization [facility] Address [address] [place], [place] [id number] Phone Care Team Providers Name Role Phone Tata Don DO Unavailable Unavailable Allergies, Adverse Reactions, Alerts Substance Reaction Severity Status No Known Drug Allergies Unknown Active Medications Medication Instructions Dosage Effective Dates Status Comments (start - stop) Tums 200 mg - Active calcium (500 mg) chewable tablet Vitamin take 1 tablet by Not Available - Active tablet oral route every day Problems Condition Effective Dates (start - stop) Clinical Status Encntr for f/u exam aft trtmt for cond - ot osman allen 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 Provider: Danika QUIROGA, obstet hx, second 7 700 Anh PO Box triPrevious Low Medical Maxx L, 1522, Transverse Center 700 [place], [id number] weeks [place], gestation of 120, [place] [id number], [facility] 120, [place], Ivan, tel:[phone] [place], [address] , . [id number]. tel: tel:[phone] [facility] Previous Low Maxx Referring In Womens Transverse 1-201 Anh. Provider: Danika QUIROGA C-SectionEncounte 7 700 Anh PO Box r for suprvsn of Medical Maxx L, 1522, normal , Center 700 [place], first [id number] Dr, [facility], weeks gestation 120, [place] [id number], of [facility] 120, [place], tel: [phone] [place], , [place]. [id number]. tel: tel:[phone] [facility] Suprvsn of preg w Aug- Maxx Referring In Womens poor reprodctv or 1-201 Anh. Provider: Health KIMBER, obstet hx, first 7 700 Anh PO Box triPrevious Low Medical Maxx L, 1522, Transverse Center [address] [place], [place] [id number], C-SectionEncntr , [facility], screen for 120, [place] [id number], infections w sexl [facility] 120, [place] mode of [place], tel: transmissEncounte [phone] [place], r for screening , [place]. [id number]. for oth tel: tel:[phone] infec/parastc [phone] diseasesEncounter for suprvsn of normal , first trimesterEncounte r for screening of motherLess than 8 weeks gestation of Associates [facility] Incomplete Aug-2 Maxx Referring In Womens spontaneous 1-201 Anh. Provider: Health KIMBER, without 7 700 Anh PO Box complication Medical Maxx L, 1522, Center [address], [facility], 120, [place] [id number], [facility], [place], tel: [phone] [place], , [place]. [id number]. tel: tel:[phone] [facility] Incomplete Aug-0 Maxx In Womens spontaneous 9-201 Anh. Health KIMBER, without 7 700 PO Box complication Medical 1522, Center Dr Chris, [facility], 120, [id number], [place], [place], tel:[phone] , [place]. tel: [phone] Derek [place] Threatened Aug-0 Maxx Referring In Womens 7-201 Anh. Provider: Danika QUIROGA, 7 700 Anh PO Box Medical Maxx L, 1522, Center [facility] Dr Chris, [facility] [place], 120, Center [id number], Ivan, [facility] 120, [place], tel:[phone] [place], , [place]. [id number]. tel: tel: [phone] [facility] Threatened Aug-0 Maxx In Womens 4-201 Anh. Health KIMBER, 7 700 PO Box Medical 1522, Center Dr Chris, [facility] [place], 120, [id number], [place], [place], tel:[phone] , [place]. tel: [phone] [facility] Encntr for f/u May-0 Maxx Referring In Womens exam aft trtmt -201 Anh. Provider: Health KIMBER, for cond oth than 7 700 Anh PO Box [facility] Medical Maxx L, 1522, Center [address], [facility], 120, [place] [id number], [facility] 120, [place], tel:[phone] [place], , [place]. [id number]. tel: tel: [phone] [facility] Incomplete March- Maxx Referring In Womens spontaneous -201 Anh. Provider: Health KIMBER, with 7 700 Anh PO Box other Medical Maxx L, 1522, complications Center [facility] Dr Chris, [facility] [place], 120, Center [id number], [facility] 120, [place], tel:[phone] [facility] , [place]. [id number]. tel: tel: [phone] [facility] Incomplete March-1 Maxx Referring In Womens spontaneous 7-201 Anh. Provider: Health KIMBER, with 7 700 Anh PO Box other Medical Maxx L, 1522, complications Center [facility] Dr Chris, [facility] [place], 120, Center [id number], [facility] 120, [place], tel:[phone] [place], , [place]. [id number]. tel: tel:[phone] [facility] Incomplete March-1 Maxx Referring In Womens Ultrasound spontaneous 7-201 Anh. Provider: Danika QUIROGA, with 7 700 Anh PO Box other Medical Maxx L, 1522, complications Center [address] Dr Chris, [facility] [place], 120, Center [id number], [facility] 120, [place], tel:[phone] [place], , [place]. [id number]. tel: tel:[phone] [facility] Incomplete March-1 Maxx Referring In Womens spontaneous 6-201 Anh. Provider: Danika QUIROGA, with 7 700 Anh PO Box other Medical Maxx L, 1522, complications Center [facility] Dr Chris, [facility], 120, Center [id number], [facility] 120, [place], tel:[phone] [place], , [place]. [id number]. tel: tel:[phone] [facility] Blighted ovum and Apr-2 Maxx Referring In Womens nonhydatidiform 4-201 Anh. Provider: teodoro Garrido 7 700 Anh PO Box Medical Maxx L, 1522, Center [address], [facility], 120, Center [id number], [facility] 120, [place], tel:[phone] [place], , [place]. [id number]. tel: tel:[phone] [facility] Blighted ovum and Apr-1 Maxx Referring In Womens nonhydatidiform 3-201 Anh. Provider: Danika QUIROGA mole 7 700 Anh PO Box Medical Maxx L, 1522, Center [address], [facility], 120, Center [id number], [facility] 120, [place], tel:[phone] [place], , [place]. [id number]. tel: tel:[phone] [facility] Blighted ovum and Apr-0 Maxx In Womens nonhydatidiform 7-201 Anh. Danika QUIROGA, mole 7 700 PO Box Medical 1522, Center Dr Chris, [facility] [place], 120, [id number], [place], tel:[phone] , [place]. tel: [phone] [facility] Blighted ovum and Apr-0 Maxx Referring In Womens nonhydatidiform 6-201 Anh. Provider: Danika QUIROGA, moleEncounter for 7 700 Anh PO Box test, Medical Maxx L, 1522, result [id number] Center 700 [place], weeks gestation , [facility], of 120, Center [id number], Ivan, [facility] 120, [place], tel:[phone] [place], , [place]. [id number]. tel: tel:[phone] [facility] Previous Low Apr-0 Maxx Referring In Womens Ultrasound Transverse 6-201 Anh. Provider: Danika QUIROGA, C-Section 7 700 Anh PO Box state, Medical Maxx L, 1522, Center 700 [place], weeks gestation Dr [facility], of 120, Center [id number], Ivan, [facility] 120, [place], tel:[phone] [place], , [place]. [id number]. tel: tel:[phone] Associates Ivan state, Mar-2 Maxx Referring In Womens incidental 9-201 Anh. Provider: Danika QUIROGA, 7 700 Anh PO Box Medical Maxx L, 1522, Center [facility] Dr Chris, [facility] [place], 120, Center [id number], Ivan, [facility] 120, [place], tel:[phone] [place], , [place]. [id number]. tel: tel:[phone] Associates Ivan state, Mar-2 Carr Referring In Womens incidental9 weeks 8-201 Mary. Provider: Danika QUIROGA, gestation of 7 700 Anh PO Box Medical Maxx L, 1522, Center [facility] Dr Chris, [facility] [place], 120, Center [id number], Ivan, [facility] 120, [place], tel:[phone] [place], , [place]. [id number]. tel: tel:[phone] Derek [place] Encounter for Mar-2 Maxx Referring In Womens test, 7-201 Anh. Provider: Danika QUIROGA, result unknown9 7 700 Anh PO Box weeks gestation Medical Maxx L, 1522, of Center [address], [facility] [place], 120, Center [id number], Ivan, [facility] 120, [place], tel:[phone] [place], , [place]. [id number]. 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 Provider: Danika QUIROGA, (routine) w/o abn 6 700 Anh PO Box findings Medical Maxx L, 1522, Center [address], [facility] [place], 120, Center [id number], Ivan, [facility] 120, [place], tel:[phone] [place], , [place]. [id number]. tel: tel:[phone] Derek [place] Dec- Maxx Referring In Womens 8-201 Anh. Provider: Danika QUIROGA, 5 700 Anh PO Box Medical Maxx L, 1522, Center [address], [facility] [place], 120, Center [id number], Ivan, [facility] 120, [place], tel:[phone] [place], , [place]. [id number]. tel: tel:[phone] Derek [place] Oct-2 Maxx Referring In Womens 8-201 Anh. Provider: Danika QUIROGA, 4 700 Anh PO Box Medical Maxx L, 1522, Center [address], [facility] [place], 120, Center [id number], Ivan, [facility] 120, [place], tel:[phone] [place], [address] , . [id number]. tel: tel: [phone] Derek [place] Sep-0 Ibeth In Womens 5-201 Janee. Health [place], 4 700 PO [facility] 1522, [place] Dr Chris, [place], 120, [id number], [place], tel: [phone] , . tel: [phone] Family History Family Member Diagnosis Age At [...] party ID Authorization(s) BCBS Out [place] [id number] [employer] [place] [id number] [employer] [place] [id number] Social History Type Description Quantity Date Captured [...] Leticia Judd BOOKED Appointment Leticia Judd BOOKED Future Order: Radiology Order Transvaginal Pelvic Ultrasound Ordered ([id number]) Future Order: Radiology Order Ultrasound < 14 wks ([id number]) Ordered Date Type Problem Goal Intervention Status [...]
--- OUTSIDE RECORDS SUMMARY | 2018-03-24 05:44 | External Medical Summary | Continuity of Care Document ---
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) - (routine) w/o abn findings Suprvsn of preg w poor reprodctv or - obstet hx, first tri Previous Low Transverse - Encntr screen for infections w sexl - mode of transmiss Encounter for screening for oth - infec/parastc diseases Encounter for suprvsn of normal - , first trimester Encounter for screening of - mother Less than 8 weeks gestation of - Encounter for test, [...] without complication Incomplete spontaneous without complication Threatened Threatened Previous Low Transverse - state, incidental - 10 weeks gestation of - state, incidental - state, incidental - 9 weeks gestation of - Active Irregular Bleeding Active Active Procedures Procedure Date Initial OB Visit No Charge - 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 GONORRHOEAE RNA, TMA CHLAMYDIA NOT DETECTED NOT DETECTED N TRACHOMATIS RNA, 15:02:00 TMA NEISSERIA NOT DETECTED NOT DETECTED N GONORRHOEAE RNA, 15:02:00 TMA [id number] SEE NOTE This test was 15:02:00 performed using the APTIMA COMBO2 Assay([employer] The analytical performance characteristics of this assay, when used to test SurePath specimens havebeen determined by [employer]. REPORT COMMENT:FASTING:UNKNO WNTest performed at [facility] [id number] [place] [address]Vrfiuthh: OPAL STONE DO,MPH Panel Description: OBSTETRIC PANEL WHITE BLOOD CELL 6.7 Thousand/uL 3.8-10.8 N COUNT 15:19:00 RED BLOOD CELL 4.11 Million/uL 3.80-5.10 N COUNT 15:19:00 HEMOGLOBIN 12.3 g/dL 11.7-15.5 N 15:19:00 HEMATOCRIT 35.7 % 35.0-45.0 N 15:19:00 MCV 86.9 fL 80.0-100.0 N 15:19:00 MCH 29.9 pg 27.0-33.0 N 15:19:00 MCHC 34.5 g/dL 32.0-36.0 N 15:19:00 RDW 13.6 % 11.0-15.0 N 15:19:00 PLATELET COUNT 249 Thousand/uL 140-400 N 15:19:00 MPV 10.7 fL 7.5-12.5 N 15:19:00 ABSOLUTE 5038 cells/uL 0774-4702 N NEUTROPHILS 15:19:00 ABSOLUTE 1126 cells/uL 850-3900 N LYMPHOCYTES 15:19:00 ABSOLUTE 442 cells/uL 200-950 N MONOCYTES 15:19:00 ABSOLUTE 60 cells/uL 15-500 N EOSINOPHILS 15:19:00 ABSOLUTE 34 cells/uL 0-200 N BASOPHILS 15:19:00 NEUTROPHILS 75.2 % N 15:19:00 LYMPHOCYTES 16.8 % N 15:19:00 MONOCYTES 6.6 % N 15:19:00 EOSINOPHILS 0.9 % N 15:19:00 BASOPHILS 0.5 % N 15:19:00 ANTIBODY SCREEN, NO ANTIBODIES N RBC W/REFL ID, 15:19:00 DETECTED Reference range TITER AND AG No antibodies detected This assay is a screening test for the detection of red blood cell antibodies. The test is not to be used for pretransfusion screening or for the medical management of an alloimmunized . ABO GROUP A 15:19:00 RH TYPE RH(D) 15:19:00 POSITIVE RPR (DX) W/REFL NON-REACTIVE NON-REACTIV N TITER AND 15:19:00 E CONFIRMATORY TESTING HEPATITIS B NON-REACTIVE NON-REACTIV N SURFACE ANTIGEN 15:19:00 E RUBELLA ANTIBODY 3.96 index N Index (IGG) 15:19:00 Interpretation ----- <0.90 Not consistent with Immunity 0.90-0.99 Equivocal > or=1.00 Consistent with Immunity The presence of rubella IgG antibody suggests immunization or past or current infection withrubella virus.Test performed at [facility] [id number] [place] [id number] r: OPAL STONE DO,MPH Panel Description: HIV 1/2 ANTIGEN/ANTIBODY,FOURTH GENERATION W/RFL HIV NON-REACTIVE NON-REACTIVE N HIV-1 antigen and HIV-1/HIV- 2 antibodies were AG/AB, 15:19:00 notdetected. There is no laboratory evidence of 4TH GEN HIVinfection. PLEASE NOTE: This information has been disclosed toyou from records whose confidentiality may beprotected by state law. If your state requires suchprotection, then the state law prohibits you frommaking any further disclosure of the informationwithout the specific written consent of the personto whom it pertains, or as otherwise permitted by law.A general authorization for the release of medical orother information is NOT sufficient for this purpose. For additional information please refer tohttp://education.[employer]/faq/MVV231(This link is being provided for informational/educational purposes only.) The performance of this assay has not been clinicallyvalidated in patients less than 2 years old. REPORT COMMENT:FASTING:NOTest performed at [facility] [address] [id number]: OPAL STONE DO,MPH Advance Directives Directive Yes / No Effective Date File Name Unknown Encounters Encounter Practice Location Reason(s) Diagnoses Date Provider Care Team Description For Visit Members [facility] Grace of preg w Maxx Referring In Womens poor reprodctv or Anh. Provider: Health PA, obstet hx, first 7 700 Anh PO Box triPrevious Low Medical Maxx L, 1522, Transverse Center 700 [place], C-SectionEncntr , [facility] Medical [place], screen for 120, [place] [id number], infections w sexl Ivan [facility] 120, [place] mode of [place], tel:[phone] transmissEncounte [phone] [place], [id number] r for screening , [place]. [id number]. for oth tel: tel: infec/parastc [phone] diseasesEncounter for suprvsn of normal , first trimesterEncounte r for screening of motherLess than 8 weeks gestation of [facility] Incomplete Aug-2 Maxx Referring In Womens spontaneous 1-201 Anh. Provider: Danika QUIROGA, without 7 700 Anh PO Box complication Medical Maxx L, [address], [address], [facility], 120, [place] [id number], [facility] 120, [facility], tel:[phone] [place], , [place]. [id number]. tel: tel: [phone] [facility] Incomplete Aug-0 Maxx In Womens spontaneous 9-201 Anh. Danika QUIROGA, without 7 700 PO Box complication Medical 1522, [place] Dr Chris, [facility], 120, [id number], [facility], tel:[phone] , [place]. tel: [phone] [facility] Threatened Aug-0 Maxx Referring In Womens 7-201 Anh. Provider: Danika QUIROGA, 7 700 Anh PO Box Medical Maxx L, 1522, [address], [facility], 120, [place] [id number], [facility] 120, [place], tel:[phone] [facility] , [place]. [id number]. tel: tel: [phone] Derek Love Threatened Aug-0 Maxx In Womens 4-201 Anh. Danika QUIROGA, 7 700 PO Box Medical 1522, [place] [address] Chris, [facility], 120, [id number], [facility], tel:[phone] , [place]. tel: [phone] Derek Love Encntr for f/u Irving-0 Maxx Referring In Womens exam aft trtmt 5-201 Anh. Provider: Danika QUIROGA, for cond oth than 7 700 Anh PO Box malig neokris Medical Maxx L, 1522, Center [address], [facility] Medical [place], 120, Center [id number], Ivan, [facility] 120, [place], tel:[phone] [place], , [place]. [id number]. tel: tel:[phone] [facility] Incomplete May-1 Maxx Referring In Womens spontaneous 9-201 Anh. Provider: Health KIMBER, with 7 700 Anh PO Box other Medical Maxx L, 1522, complications Center [address] Dr Chris, [facility] [place], 120, Center [id number], [place], [facility] 120, [place], tel:[phone] [place], , [place]. [id number]. tel: tel:[phone] [facility] Incomplete May-1 Maxx Referring In Womens spontaneous 7-201 Anh. Provider: Danika QUIROGA, with 7 700 Anh PO Box other Medical Maxx L, 1522, complications Center [address] Dr Chris, [facility] [place], 120, Center [id number], Ivan [facility] 120, [place], tel:[phone] [place], , [place]. [id number]. tel: tel:[phone] [facility] Incomplete May-1 Maxx Referring In Womens Ultrasound spontaneous 7-201 Anh. Provider: Danika QUIROGA, with 7 700 Anh PO Box other Medical Maxx L, 1522, complications Center [address] Dr Chris, [facility] Medical [place], 120, Center [id number], Ivan [facility] 120, [place], tel:[phone] [place], , [place]. [id number]. tel: tel:[phone] [facility] Incomplete May-1 Maxx Referring In Womens spontaneous 6-201 Anh. Provider: Danika QUIROGA, with 7 700 Anh PO Box other Medical Maxx L, 1522, complications Center [address] Dr Chris, [facility] Medical [place], 120, Center [id number], [facility] 120, [place], tel:[phone] [place], , [place]. [id number]. tel: tel: [phone] [facility] Blighted ovum and Apr-2 Maxx Referring In Womens nonhydatidiform 4-201 Anh. Provider: Danika QUIROGA [facility] [place] [place] 7 700 Anh PO Box Medical Maxx L, 1522, [place] [address] [address], [facility], 120, [place] [id number], [facility] 120, [place], tel:[phone] [place], , [place]. [id number]. tel: tel: [phone] [facility] Blighted ovum and Apr-1 Maxx Referring In Womens nonhydatidiform 3-201 Anh. Provider: Danika QUIROGA [facility] [place] [place] 7 700 Anh PO Box Medical Maxx L, 1522, [place] [address] [address], [facility], 120, [place] [id number], [facility] 120, [place], tel:[phone] [place], , [place]. [id number]. tel: tel: [phone] [facility] Blighted ovum and Apr-0 Maxx In Womens nonhydatidiform 7-201 Anh. Danika QUIROGA [facility] [place] 7 700 PO Box Medical 1522, [place] Dr Chris, [facility], 120, [id number], Ivan, [place], tel: [phone] , [place]. tel: [phone] [facility] Blighted ovum and Apr-0 Maxx Referring In Womens nonhydatidiform 6-201 Anh. Provider: Kenyetta Garridoounter for 7 700 Anh PO Box test, Medical Maxx L, 1522, result [id number] [place] [address] [place], weeks gestation , [facility], of 120, [place] [id number], [facility] 120, [place], tel:[phone] [facility] , [place]. [id number]. tel: tel:[phone] [facility] Previous Low Apr-0 Maxx Referring In Womens Ultrasound Transverse 6-201 Anh. Provider: Danika QUIROGA, C-Section 7 700 Anh PO Box state, Medical Maxx L, 1522, [id number] Center 700 [place], weeks gestation , [facility], of 120, Center [id number], Ivan, [facility] 120, [place], tel:[phone] [place], , [place]. [id number]. tel: tel:[phone] [facility] state, Mar-2 Maxx Referring In Womens incidental 9-201 Anh. Provider: Danika QUIROGA, 7 700 Anh PO Box Medical Maxx L, 1522, Center [address] Dr Chris, [facility], 120, Center [id number], Ivan, [facility] 120, [place], tel:[phone] [place], , [place]. [id number]. tel: tel:[phone] [facility] state, Mar-2 Carr Referring In Womens incidental9 weeks 8-201 Mary. Provider: Danika QUIROGA, gestation of 7 700 Anh PO Box Medical Maxx L, 1522, Center [address] Dr [address], [facility] Medical [place], 120, Center [id number], Ivan, [facility] 120, [place], tel:[phone] [place], , [place]. [id number]. tel: tel:[phone] [facility] Encounter for Mar-2 Maxx Referring In Womens test, 7-201 Anh. Provider: Danika QUIROGA, result unknown9 7 700 Anh PO Box weeks gestation Medical Maxx L, 1522, of Center [address], [facility] Medical [place], 120, Center [id number], Ivan, [facility] 120, [place], tel:[phone] [place], , [place]. [id number]. 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 Provider: Danika QUIROGA, (routine) w/o abn 6 700 Anh PO Box findings Medical Maxx L, 1522, Center [address] Chris, [facility] [place], 120, Center [id number], [place], [facility] 120, [place], tel:[phone] [place], , [place]. [id number]. tel: tel: [phone] Derek Love Dec- Maxx Referring In Womens 8-201 Anh. Provider: Danika QUIROGA, 5 700 Anh PO Box Medical Maxx L, 1522, Center [facility] Dr Chris, [facility] [place], 120, [place] [id number], [facility] 120, [place], tel:[phone] [place], , [place]. [id number]. tel: tel: [phone] Derek Love Aug-2 Maxx Referring In Womens 8-201 Anh. Provider: Danika QUIROGA, 4 700 Anh PO Box Medical Maxx L, 1522, Center [facility] Dr Chris, [facility] [place], 120, [place] [id number], [facility] 120, [place], tel:[phone] [place], , [place]. [id number]. tel: tel: [phone] Derek Love Sep-0 Ibeth In Womens 5-201 Janee. Danika QUIROGA, 4 700 PO Box Medical 1522, [place] Dr Chris, [facility] [place], 120, [id number], [place], [place], tel:[phone] , [place]. tel: [phone] Family History Family Member Diagnosis Age At [...] older Payers Payer name Insurance type Covered democrat ID Authorization(s) [employer] [place] [id number] [employer] [place] [id number] [employer] [place] [id number] Social History Type Description Quantity Date Captured Alcohol Use Details Caffeine Use Details combo 1 per day per day Tobacco Use Status Never smoked tobacco Smoking Status Never smoker Non-Smoking Tobacco Use : No Details Available : No Details Available Details Vital Signs Date / Height Weight BMI Pulse Blood Temperature Respiratory Body Head BMI Time: Rate Pressure Rate Surface Circumference percentile Area 177.50 29.7 lbs 6 mm[Hg] 2:29 kg/m PM eter (2) Chief Complaint And Reason For Visit Unknown Chief Complaint And Reason For Visit Reason For Referral Reason For Referral Unknown Plan Of Care Date Type Action Status Future Order: Radiology Order Transvaginal Pelvic Ultrasound Ordered ([id number]) Future Order: Radiology Order Ultrasound < 14 wks ([id number]) Ordered Date Type Problem Goal Intervention Status [...]
--- OUTSIDE RECORDS SUMMARY | 2018-03-24 05:44 | External Medical Summary | Continuity of Care Document ---
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 Provider: [facility] PA, obstet hx, second 7 700 Anh PO Box triPrevious Low Medical Maxx L, 1522, Transverse Center [address] [place], C-SectionEnclorie Dr [facility] [place], r for suprvsn of 120, Center [id number], normal , Abdullahi [place] 120, [place] second Ivan [place], tel:+ [id number] [phone], gestation of , [place]. [id number]. tel: tel:[phone] [facility] Suprvsn of preg w Dec-2 Maxx Referring In Womens Ultrasound poor reprodctv or 7-201 Anh. Provider: Danika QUIROGA, obstet hx, second 7 700 Anh PO Box tri19 weeks Medical Maxx L, 1522, gestation of Center [address] [place] [address], , [facility], 120, Center [id number], Ivan, [facility] 120, [place] Ivan [place], tel:[phone] CT, , [place]. [id number]. tel: tel:[phone] Derek [place] Suprvsn of preg w Nov-2 Maxx Referring In Womens poor reprodctv or 9-201 Anh. Provider: ervin Garridoet hx, second 7 700 Anh PO Box triPrevious Low Medical Maxx L, 1522, Transverse Center [address] [place] [address], [id number] weeks Dr [facility], gestation of 120, Center [id number], Ivan [facility] 120, [place], tel:[phone] CT, , [place]. [id number]. tel: tel:[phone] Derek [place] Previous Low Nov-0 Maxx Referring In Womens Transverse 1-201 Anh. Provider: Danika QUIROGA, C-SectionEncounte 7 700 Anh PO Box r for suprvsn of Medical Maxx L, 1522, normal , Center [address] [place] [address], first [id number] Dr [facility], weeks gestation 120, Center [id number], of Ivan, [facility] 120, [place] vIan [place], tel:[phone] CT, , [place]. [id number]. tel: tel:[phone] Derek [place] Suprvsn of preg w Oct-1 Maxx Referring In Womens poor reprodctv or 1-201 Anh. Provider: Health PA, obstet hx, first 7 700 Anh PO Box triPrevious Low Medical Maxx L, 1522, Transverse Center [address] [place] [address], C-SectionEncntr , [facility], screen for 120, [place] [id number], [facility]l [facility], [place] mode of [place], tel:[phone], r for screening , [place]. [id number]. for oth tel: tel:[phone] infec/parastc [phone] diseasesEncounter for suprvsn of normal , first trimesterEncounte r for screening of motherLess than 8 weeks gestation of [facility] Incomplete Aug-2 Maxx Referring In Womens spontaneous 1- Anh. Provider: Danika QUIROGA, without 7 700 Anh PO Box complication Medical Maxx L, 1522, Center [facility] Dr Chris, [facility], 120, [place] [id number], [facility] 120, Ivan [place], tel: [phone] CT, , [place]. [id number]. tel: tel:[phone] [facility] Incomplete Aug-0 Maxx In Womens spontaneous 9- Anh. Danika QUIROGA, without 7 700 PO Box complication Medical 1522, [place] Dr Chris, [facility], 120, [id number], [place], [place], tel:[phone] , [place]. tel: [phone] Derek [place] Threatened Aug-0 Maxx Referring In Womens 7-201 Anh. Provider: Danika QUIROGA, 7 700 Anh PO Box Medical Maxx L, 1522, Center [facility] Dr Chris, [facility], 120, [place] [id number], Ivan [facility] 120, Ivan [place], tel:[phone] [facility] , [place]. [id number]. tel: tel:[phone] Derek [place] Threatened Aug-0 Maxx In Womens 4-201 Anh. Danika QUIROGA, 7 700 PO Box Medical 1522, [place] [address] Chris, [facility] [place], 120, [id number], [place], [place], tel:[phone] , [place]. tel: [phone] [facility] Encntr for f/u May-0 Maxx Referring In Womens exam aft trtmt 5-201 Anh. Provider: Danika QUIROGA, for cond oth than 7 700 Anh PO Box stanley neoplm Medical Maxx L, 1522, Center [address], [facility] [place], 120, Center [id number], Ivan, [facility] 120, [place], tel:[phone] CT, , [place]. [id number]. tel: tel: [phone] Derek [place] Incomplete March- Maxx Referring In Womens spontaneous 9-201 Anh. Provider: Danika QUIROGA, with 7 700 Anh PO Box other Medical Maxx L, 1522, complications Center [facility] Dr Chris, [facility] [place], 120, Center [id number], [facility] 120, [place], tel:[phone] CT, , [place]. [id number]. tel: tel: [phone] Derek [place] Incomplete March-1 Maxx Referring In Womens spontaneous 7-201 Anh. Provider: Danika QUIROGA, with 7 700 Anh PO Box other Medical Maxx L, 1522, complications Center [address], [facility] [place], 120, Center [id number], [facility] 120, [place], tel:[phone] CT, , [place]. [id number]. tel: tel:[phone] Derek [place] Incomplete March-1 Maxx Referring In Womens Ultrasound spontaneous 7-201 Anh. Provider: Danika QUIROGA, with 7 700 Anh PO Box other Medical Maxx L, 1522, complications Center [address], [facility] [place], 120, Center [id number], Ivan, [facility] 120, [place] Ivan [place], tel:[phone] CT, , [place]. [id number]. tel: tel: [phone] [facility] Incomplete March- Maxx Referring In Womens spontaneous 6-201 Anh. Provider: Danika QUIROGA, with 7 700 Anh PO Box other Medical Maxx L, 1522, complications Center [facility] Dr Chris, [facility], 120, [place] [id number], [facility] 120, Ivan [place], tel: [phone] CT, , [place]. [id number]. tel: tel: [phone] [facility] Blighted ovum and Apr-2 Maxx Referring In Womens nonhydatidiform 4-201 Anh. Provider: Danika QUIROGA, mole 7 700 Anh PO Box Medical Maxx L, 1522, Center [facility] Dr Chris, [facility], 120, [place] [id number], [facility] 120, Ivan [place], tel:[phone] [facility] , [place]. [id number]. tel: tel: [phone] [facility] Blighted ovum and Apr-1 Maxx Referring In Womens nonhydatidiform 3-201 Anh. Provider: Danika QUIROGA, mole 7 700 Anh PO Box Medical Maxx L, 1522, Center [facility] Dr Chris, [facility], 120, [place] [id number], [facility] 120, Ivan [place], tel:[phone] [facility] , [place]. [id number]. tel: tel: [phone] [facility] Blighted ovum and Apr-0 Maxx In Womens nonhydatidiform 7-201 Anh. Danika QUIROGA, mole 7 700 PO Box Medical 1522, [place] Dr Chris, [facility] [place], 120, [id number], Ivan, AM[place], tel: [phone] , [place]. tel: [phone] [facility] Blighted ovum and Apr-0 Maxx Referring In Womens nonhydatidiform 6-201 Anh. Provider: Danika QUIROGA, moleEncounter for 7 700 Anh PO Box test, Medical Maxx L, 1522, result [id number] Center [address] [place], weeks gestation , Abdullahi [place], of 120, Center [id number], [facility] 120, [place], tel:[phone], , [place]. [id number]. tel: tel:[phone] Derek [place] Previous Low Apr-0 Maxx Referring In Womens Ultrasound Transverse 6-201 Anh. Provider: Danika QUIROGA, C-Section 7 700 Anh PO Box state, Medical Maxx L, 1522, Center [address] [place] [address], weeks gestation Abdullahi [place], of 120, [place] [id number], Ivan [facility] 120, [place], tel:[phone], , [place]. [id number]. tel: tel:[phone] Derek [place] state, Mar-2 Maxx Referring In Womens incidental 9-201 Anh. Provider: Danika QUIROGA, 7 700 Anh PO Box Medical Maxx L, 1522, Center [facility] Dr Chris [facility] [place], 120, Center [id number], [facility] 120, [place], tel:[phone], , [place]. [id number]. tel: tel:[phone] Derek [place] state, Mar-2 Carr Referring In Womens incidental9 weeks 8-201 Mary. Provider: Danika QUIROGA, gestation of 7 700 Anh PO Box Medical Maxx L, 1522, Center [facility] Dr [address] [place], 120, Center [id number], Ivan [facility] 120, [place], tel:[phone], , [place]. [id number]. tel: tel:[phone] Derek [place] Encounter for Mar-2 Maxx Referring In Womens test, 7-201 Anh. Provider: Health PA, result unknown9 7 700 Anh PO Box weeks gestation Medical Maxx L, 1522, of Center [address], [facility] Medical [place], 120, Center [id number], Ivan [facility] 120, [place], tel:+ [phone] CT, , [place]. [id number]. 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 Provider: Danika QUIROGA, (routine) w/o abn 6 700 Anh PO Box findings Medical Maxx L, 1522, Center [address], [facility] [place], 120, Center [id number], Ivan [facility] 120, [place], tel:+ [phone] CT, , [place]. [id number]. tel: tel:[phone] Derek [place] Dec- Maxx Referring In Womens 8-201 Anh. Provider: Danika QUIROGA, 5 700 Anh PO Box Medical Maxx L, 1522, Center [address], [facility] [place], 120, Center [id number], Ivan [facility] 120, [place], tel:+ [phone] [place], , [place]. [id number]. tel: tel:[phone] Derek [place] Aug- Maxx Referring In Womens 8-201 Anh. Provider: Danika QUIROGA, 4 700 Anh PO Box Medical Maxx L, 1522, Center [address], [facility] [place], 120, Center [id number], Ivan [facility] 120, [place], tel:[phone], , [place]. [id number]. tel: tel:[phone] Derek [place] Sep-0 Ibeth In Womens 5-201 Janee. Danika QUIROGA, 4 700 PO Box Medical 1522, Center Dr Chris, [facility] [place], 120, [id number], [facility], tel:[phone] , . tel: [phone] Family History Family Member Diagnosis Age At [...] older Payers Payer name Insurance type Covered green party ID Authorization(s) [employer] [place] [id number] [employer] [place] [employer] [place] [id number] [employer] [place] [employer] [place] [id number] Social History Type Description Quantity Date Captured Alcohol Use Details Caffeine Use Details Unknown Tobacco Use Status Unknown Smoking Status Never smoker Vital Signs Date / Height Weight BMI Pulse Blood Temperature Respiratory Body Head BMI Time: Rate Pressure Rate Surface Circumference percentile Area 186.70 31.2 lbs 6 mm[Hg] 11:38 kg/m AM eter (2) Chief Complaint And Reason For Visit Unknown Chief Complaint And Reason For Visit Reason For Referral Reason For Referral Unknown Plan Of Care Date Type Action Status Appointment Leticia Judd BOOKED Future Order: Radiology Order Transvaginal Pelvic Ultrasound Ordered ([id number]) Future Order: Radiology Order Complete OB Ultrasound > 14 Ordered Weeks ([id number]) Future Order: Radiology Order Ultrasound < 14 wks ([id number]) Ordered Date Type Problem Goal Intervention Status [...]
[2018-03-24] MEDS ORDERED: CITRIC ACID/SODIUM CITRATE 30ml PO ONE (05:45)
[2018-03-24] MEDS ORDERED: NOZIN NASAL SWAB NAS ONE (05:45)
[2018-03-24] MEDS ORDERED: FAMOTIDINE PB 20 MG/50 ML BAG IV ONE (05:45)
[2018-03-24] MEDS ORDERED: CEFAZOLIN PREMIX (MC ONLY) 2 GM/50 ML BAG IV ONE (05:45)
--- OUTSIDE RECORDS SUMMARY | 2018-03-24 05:45 | External Medical Summary | Continuity of Care Document ---
:1985 Author Organization [facility] Allergies Active Description Code Type Severity Reaction Onset Reported/ Identified Relationship Clinical to Patient Status Yes no known 23960 N/A N/A allergies 8002 Yes No Known 68587 3 N/A N/A Drug 0 Allergies Yes No Known NKMA N/A N/A 10/14/2016 Allergies Yes No Known Aller Unknown N/A 03/31/2017 Allergies gy Yes No Known No Aller N/A N/A 03/31/2017 Allergies Known gy Aller gies Medications Medication Packaging Start Date Stop Date Route Dosage Sig Gram 03/17/2015 Add MUPIROCIN 6 Betamethasone ointment 0.1% (15gms) to which is added Nystatin powder to a concentration of 2% Nystatin. Apply sparingly after each feeding. Do not wash or wipe off. Tablet 11/03/2015 take NORGESTIMATE-ETH 6 1 tablet by oral INYL ESTRADIOL route every day Tube 04/22/2016 TERCONAZOLE 6 insert 1 applicatorful by vaginal route every day for 7 days at bedtime 1 packets 10/14/2016 Oral 1 azithromycin(Zit 6 packets, Oral, hromax Z-Bradley 250 Once, as directed mg oral tablet) on package labeling, 6 tabs, 0 Refill(s) 5 mL 10/14/2016 Oral 5 mL, promethazine-cod 7 Oral, q4hr, PRN: eine(promethazin as needed for e-codeine 6.25 cough, 120 mL, 0 mg-10 mg/5 mL Refill(s) oral syrup) 1 tabs 10/14/2016 Oral 20 mg 20 predniSONE(predn 6 mg=1 tabs, Oral, iSONE 20 mg oral Daily, for 5 tablet) days, 5 tabs, 0 Refill(s) None 11/23/2016 Tablet 03/30/2017 take NORCO 7 1 tablet by oral route every 6 hours as needed for pain Problems Date Dx Attending Type Code Diagnosis Diagnosed By Coded 10/14/2016 Ethan Jeff Final J06.9 Acute upper W respiratory infection, unspecified 10/14/2016 Ethan Jeff Final R05 Cough W 02/10/2017 Anh Lilly Z33.1 state, L incidental 02/10/2017 Anh Lilly Z33.1 state, L incidental 02/16/2017 W V22.0 Supervision Of , Primigravida 02/17/2017 Anh Lilly O34.211 Previous Low L Transverse 02/17/2017 Anh Lilly Z33.1 state, L incidental 02/17/2017 Anh Lilly Z3A.10 10 weeks gestation of L 03/02/2017 MAXX SHULTZ, O03.9 COMPLETE OR UNSP ANH L SPONTANEOUS WITHOUT COMPLICATION 03/02/2017 MAXX SHULTZ, Z3A.08 8 WEEKS GESTATION OF ANH L 03/08/2017 Anh Lilly O02.0 Blighted ovum and L nonhydatidiform mole 03/08/2017 Anh Lilly O02.0 Blighted ovum and L nonhydatidiform mole 03/30/2017 Anh Lilly O03.39 Incomplete L spontaneous with other complications 03/30/2017 Anh Lilly O03.39 Incomplete L spontaneous with other complications 03/30/2017 Anh Lilly O03.39 Incomplete L spontaneous with other complications 03/30/2017 Anh Lilly O03.39 Incomplete L spontaneous with other complications 04/01/2017 Anh Lilly O03.39 Incomplete L spontaneous with other complications 04/14/2017 CHICHO PANDEY Final D22.9 Melanocytic nevi, R unspecified 04/14/2017 CHICHO PANDEY Final D48.5 Neoplasm of uncertain R behavior of skin 06/22/2017 Anh Lilly O20.0 Threatened L 06/22/2017 Anh Lilly O20.0 Threatened L 11/09/2017 Anh Lilly O09.292 Suprvsn of preg w L poor reprodctv or obstet hx, second tri 11/09/2017 Anh Lilly Z3A.19 19 weeks gestation of L 02/13/2018 Anh Lilly O09.293 Suprvsn of preg w L poor reprodctv or obstet hx, third tri 02/13/2018 Anh Lilly O34.211 Previous Low L Transverse 02/13/2018 Anh Lilly Z3A.33 33 weeks gestation of L Procedures Code [place] [address] OB Visit No 03/06/2015 Charge 38898 Office or 10/14/2016 other outpatient visit for the evaluation and management of a new patient, which requires these 3 mckeon components: A detailed history; A detailed examination; [place] 83751 Venpnctr 02/09/2017 fngr/heel/ear stick routne 78311 Chorionic 02/09/2017 gonadotropin test 47101 OB US < 14 02/17/2017 WKS, SINGLE FETUS 43023 Venpnctr 03/07/2017 fngr/heel/ear stick routne 01022 Chorionic 03/07/2017 gonadotropin test 84538 Venpnctr 03/29/2017 fngr/heel/ear stick routne 85600 Chorionic 03/29/2017 gonadotropin test 06259 Ultrasound, 03/30/2017 transvaginal 38626 Treat missed 04/01/2017 , 1st trimest 64526 Biopsy of 04/14/2017 skin, subcutaneous tissue and/or mucous membrane (including simple closure), unless otherwise listed; single lesion 82760 Biopsy of 04/14/2017 skin, subcutaneous tissue and/or mucous membrane (including simple closure), unless otherwise listed; each separate/additional lesion (List separately in addition to code for primary procedu 48998 Level IV - 04/14/2017 Surgical pathology, gross and microscopic examination - spontaneous/missed Artery, biopsy Bone marrow, biopsy Bone exostosis Brain/meninges, other than for tumor resection Breast, 69992 Office or 04/14/2017 other outpatient visit for the evaluation and management of a new patient, which requires these 3 mckeon components: An expanded problem focused history; An expanded problem focused examination 64824 Venpnctr 06/20/2017 fngr/heel/ear stick routne 08944 Chorionic 06/20/2017 gonadotropin test 05139 Ultrasnd exam 11/09/2017 of preg uterus, compl 77788 Ultrasnd preg 02/13/2018 uterus, flwup/repeat Results Test Result Range L600.0175 - 04/01/17 06:15 SPECIMEN TYPE, URINE CLEANCATCH-MIDSTREAM COLOR,URINE RAMONA YELLOW TURBIDITY, URINE CLOUDY CLEAR SPECIFIC GRAVITY,URINE >=1.030 1.015-1.025 PH, URINE - DIPSTICK 5.0 5.0-8.0 LEUKOCYTE ESTERASE ,URINE NEGATIVE NEGATIVE NITRITE,URINE NEGATIVE NEGATIVE PROTEIN,URINE - DIPSTICK 2+ NEGATIVE GLUCOSE, URINE - DIPSTICK NEGATIVE NEGATIVE KETONES,URINE - DIPSTICK 3+ NEGATIVE UROBILINOGEN,URINE 1.0 EU/DL NORMAL BILIRUBIN,URINE - DIPSTICK NEGATIVE NEGATIVE BLOOD, URINE 3+ NEGATIVE WBC,URINE NONE SEEN /HPF 0-5 RBC,URINE TNTC /HPF 0-3 SQUAMOUS EPITHELIAL CELL,UR 10-20 BACTERIA,URINE 4+ NEGATIVE CULTURE SET UP,URINE CULT NOT INDICATED L100.0050 - 04/01/17 06:24 WBC - WHITE BLOOD COUNT 3.6 T/MM3 4.5-11.0 RED BLOOD COUNT 4.23 M/MM3 4.00-5.20 HGB - HEMOGLOBIN 12.3 GM/DL 12-16 HCT - HEMATOCRIT 36.3 % 36-46 MEAN CORPUSCULAR VOLUME 85.8 UM3 80-100 MEAN CORPUSCULAR HGB 29.1 UUG 26-34 MEAN CORPUSCULAR HGB CONC(MCHC 33.9 GM/DL 31-37 RDW STANDARD DEVIATION 40.9 FL 36.9-50.2 PLT - PLATELET COUNT 219 T/MM3 130-400 MEAN PLATELET VOLUME 10.2 UM3 9.4-12.4 NEUTROPHILS % (AUTO) 47.6 % 33-66 LYMPHOCYTES % (AUTO) 38.6 % 23-45 MONOCYTES % (AUTO) 8.7 % 0-9.0 EOSINOPHILS % (AUTO) 4.5 % 0-4 BASOPHILS % (AUTO) 0.6 % 0-2 IMMATURE GRANULOCYTE % (AUTO) 0.0 % 0.0-0.5 NEUTROPHILS # (AUTO) 1.7 T/MM3 1.8-7.7 LYMPHOCYTES # (AUTO) 1.4 T/MM3 1-4.8 MONOCYTES # (AUTO) 0.3 T/MM3 0-0.8 EOSINOPHILS # (AUTO) 0.2 T/MM3 0-0.5 BASOPHILS # (AUTO) 0.0 T/MM3 0-0.2 IMMATURE GRANULOCYTE # (AUTO) 0.00 T/MM3 0.00-0.03 L300.5950 - 06/17/17 09:34 HCG,Quantitative 1010.6 mIU/mL NRG Encounters ACCT No. Visit Discharge Status Pt. Type Provider Facility Loc./Unit Complaint Date/Time [id number] 03/15/2018 03/15/2018 [facility], 14:00:00 23:59:59 nt Anh L [id number] 03/08/2018 03/08/2018 [facility], 16:30:00 23:59:59 nt Anh L [id number] 03/01/2018 03/01/2018 [facility], 14:10:00 23:59:59 nt Anh L [id number] 02/13/2018 02/13/2018 [facility], 09:10:00 23:59:59 nt Anh L [id number] 02/13/2018 02/13/2018 [facility], 08:45:00 23:59:59 nt Anh L [id number] 02/01/2018 02/01/2018 [facility], 16:00:00 23:59:59 nt Anh L [id number] 01/18/2018 01/18/2018 [facility], 14:30:00 23:59:59 nt Anh L [id number] 01/04/2018 01/04/2018 [facility], 11:30:00 23:59:59 nt Anh L [id number] 12/07/2017 12/07/2017 [facility], 10:45:00 23:59:59 nt Anh L [id number] 11/09/2017 11/09/2017 [facility], 11:15:00 23:59:59 nt Anh L [id number] 11/09/2017 11/09/2017 [facility], 10:15:00 23:59:59 nt Anh L [id number] 10/12/2017 10/12/2017 [facility], 16:00:00 23:59:59 nt Anh L [id number] 09/14/2017 09/14/2017 [facility], 14:40:00 23:59:59 nt Anh L [id number] 08/24/2017 08/24/2017 [facility], 14:15:00 23:59:59 nt Anh L [id number] 07/04/2017 07/04/2017 [facility], 13:25:00 23:59:59 nt Anh L [id number] 06/22/2017 06/22/2017 [facility], 08:21:00 23:59:59 nt Anh L [id number] 06/20/2017 06/20/2017 [facility], 15:39:00 23:59:59 nt Anh L [id number] 06/17/2017 06/17/2017 [facility], 08:22:00 23:59:59 nt Anh L [id number] 05/18/2017 05/18/2017 [facility], 09:30:00 23:59:59 nt Anh L [id number] 05/05/2017 05/05/2017 [facility], 10:05:00 23:59:59 nt Anh L [id number] 04/13/2017 04/13/2017 [facility], 16:53:00 23:59:59 nt Anh L [id number] 04/01/2017 04/01/2017 [facility], 13:41:00 23:59:59 nt Anh L [id number] 03/30/2017 03/30/2017 [facility], 14:55:00 23:59:59 nt Anh L [id number] 03/30/2017 03/30/2017 [facility], 14:45:00 23:59:59 nt Anh L [id number] 03/29/2017 03/29/2017 [facility], 10:55:00 23:59:59 nt Anh L [id number] 03/08/2017 03/08/2017 [facility], 10:10:00 23:59:59 nt Anh L [id number] 03/07/2017 03/07/2017 [facility], 10:21:00 23:59:59 nt Anh L [id number] 02/25/2017 02/25/2017 [facility], 10:31:00 23:59:59 nt Anh L [id number] 02/24/2017 02/24/2017 [facility], 16:30:00 23:59:59 nt Anh L [id number] 02/18/2017 02/18/2017 [facility], 08:26:00 23:59:59 nt Anh L [id number] 02/17/2017 02/17/2017 [facility], 13:00:00 23:59:59 nt Anh L [id number] 02/17/2017 02/17/2017 [facility], 12:45:00 23:59:59 nt Anh L [id number] 02/10/2017 02/10/2017 [facility], 08:20:00 23:59:59 nt Anh L [id number] 02/09/2017 02/09/2017 [facility], 07:25:00 23:59:59 nt Anh L [id number] 02/08/2017 02/08/2017 [facility], 16:30:00 23:59:59 nt Mary S [id number] 02/08/2017 02/08/2017 [facility], 08:04:00 23:59:59 nt Anh L [id number] 02/07/2017 02/07/2017 [facility], 15:00:00 23:59:59 nt Anh L [id number] 04/22/2016 04/22/2016 [facility], 14:10:00 23:59:59 nt Anh L [id number] 11/03/2015 11/03/2015 [facility], 12:06:00 23:59:59 nt Anh L [id number] 03/22/2018 Document 14:50:00 Registra madhav [id number] 04/22/2016 Document 14:24:24 Registra tion [id number] 03/06/2015 Document 13:30:00 Registra tion [id number] 06/17/2017 06/17/2017 [facility] lab 723 09:16:00 09:17:00 nt , ANH L [id number] 04/01/2017 04/01/2017 [facility] Love [facility] 677 06:02:00 09:06:00 nt , Medical ANH L Marshall [id number] 02/08/2017 02/08/2017 C[facility] Love EMMETT 055 15:28:00 23:59:59 nt , Medical ANH L Marshall [id number] 03/24/2018 PEN Preadmit MAXX Love C section 396 07:30:00 , Medical ANH L Marshall [id number] 11/23/2016 11/23/2016 C[facility] Out[facility] Gwen Dill 00:00:00 23:59:59 nt um, Optometry Michael Sapp [id number] 03/15/2018 03/15/2018 [facility], 14:00:00 23:59:59 nt Anh L [id number] 03/08/2018 03/08/2018 [facility], 16:30:00 23:59:59 nt Anh L [id number] 03/01/2018 03/01/2018 [facility], 14:10:00 23:59:59 nt Anh L [id number] 02/13/2018 02/13/2018 [facility], 09:10:00 23:59:59 nt Anh L [id number] 02/13/2018 02/13/2018 [facility], 08:45:00 23:59:59 nt Anh L [id number] 02/01/2018 02/01/2018 [facility], 16:00:00 23:59:59 nt Anh L [id number] 01/18/2018 01/18/2018 [facility], 14:30:00 23:59:59 nt Anh L [id number] 01/04/2018 01/04/2018 [facility], 11:30:00 23:59:59 nt Anh L [id number] 12/07/2017 12/07/2017 [facility], 10:45:00 23:59:59 nt Anh L [id number] 11/09/2017 11/09/2017 [facility], 11:15:00 23:59:59 nt Anh L [id number] 11/09/2017 11/09/2017 [facility], 10:15:00 23:59:59 nt Anh L [id number] 10/12/2017 10/12/2017 [facility], 16:00:00 23:59:59 nt Anh L [id number] 09/14/2017 09/14/2017 [facility], 14:40:00 23:59:59 nt Anh L [id number] 08/24/2017 08/24/2017 [facility], 14:15:00 23:59:59 nt Anh L [id number] 07/04/2017 07/04/2017 [facility], 13:25:00 23:59:59 nt Anh L [id number] 06/22/2017 06/22/2017 [facility], 08:21:00 23:59:59 nt Anh L [id number] 06/20/2017 06/20/2017 [facility], 15:39:00 23:59:59 nt Anh L [id number] 06/17/2017 06/17/2017 [facility], 08:22:00 23:59:59 nt Anh L [id number] 05/18/2017 05/18/2017 [facility], 09:30:00 23:59:59 nt Anh L [id number] 05/05/2017 05/05/2017 [facility], 10:05:00 23:59:59 nt Anh L [id number] 04/13/2017 04/13/2017 [facility], 16:53:00 23:59:59 nt Anh L [id number] 04/01/2017 04/01/2017 [facility], 13:41:00 23:59:59 nt Anh L [id number] 03/30/2017 03/30/2017 [facility], 14:55:00 23:59:59 nt Anh L [id number] 03/30/2017 03/30/2017 [facility], 14:45:00 23:59:59 nt Anh L [id number] 03/29/2017 03/29/2017 [facility], 10:55:00 23:59:59 nt Anh L [id number] 03/08/2017 03/08/2017 [facility], 10:10:00 23:59:59 nt Anh L [id number] 03/07/2017 03/07/2017 [facility], 10:21:00 23:59:59 nt Anh L [id number] 02/25/2017 02/25/2017 [facility], 10:31:00 23:59:59 nt Anh L [id number] 02/24/2017 02/24/2017 [facility], 16:30:00 23:59:59 nt Anh L [id number] 02/18/2017 02/18/2017 [facility], 08:26:00 23:59:59 nt Anh L [id number] 02/17/2017 02/17/2017 [facility], 13:00:00 23:59:59 nt Anh L [id number] 02/17/2017 02/17/2017 [facility], 12:45:00 23:59:59 nt Anh L [id number] 02/10/2017 02/10/2017 [facility], 08:20:00 23:59:59 nt Anh L [id number] 02/09/2017 02/09/2017 [facility], 07:25:00 23:59:59 nt Anh L [id number] 02/08/2017 02/08/2017 [facility], 16:30:00 23:59:59 nt Mary S [id number] 02/08/2017 02/08/2017 [facility], 08:04:00 23:59:59 nt Anh L [id number] 02/07/2017 02/07/2017 [facility], 15:00:00 23:59:59 nt Anh L [id number] 04/22/2016 04/22/2016 [facility], 14:10:00 23:59:59 nt Anh L [id number] 11/03/2015 11/03/2015 [facility], 12:06:00 23:59:59 nt Anh L [id number] 03/22/2018 Document 14:50:00 Registra tion [id number] 04/22/2016 Document 14:24:24 Registra tion [id number] 03/06/2015 Document 13:30:00 Registra tion [id number] 10/15/2016 Document [id number] 05:16:25 Registra tion [id number] 04/14/2017 04/14/2017 [facility] YAMMINE, [facility] E21 NPV CHECK 399 11:25:00 23:59:00 nt CHICHO R Clinic Derm MOLES [id number] 10/14/2016 10/14/2016 DIS Outpat[facility] Luinstra, [facility] New FM DOC bad 011 11:20:00 23:59:00 nt Ethan W Clinic cough
--- OUTSIDE RECORDS SUMMARY | 2018-03-24 05:45 | External Medical Summary | Continuity of Care Document ---
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 - complicating 36 weeks gestation of - Suprvsn of preg w poor reprodctv or - obstet hx, third tri Previous Low Transverse - Streptococcus B carrier state - complicating 37 weeks gestation of - Suprvsn of preg [...] Procedure Date OB Visit No Charge Cult, pathgnc orgnsm, screen Results Test Name Date and Time Measure Units Reference Range Abnormal Flag Comments Panel Description: Strep Gp B Culture Strep Gp B Positive Negative A Centers for Disease Control Culture 14:56:00 and Prevention (CDC) and [place] Congressof Obstetricians and Gynecologists (ACOG) guidelines for prevention ofperinatal group B streptococcal (GBS) disease specify co-collection ofa vaginal and rectal swab specimen to maximize sensitivity of GBSdetection. Per the CDC and ACOG, swabbing both the lower vagina andrectum substantially increases the yield of detection compared withsampling the vagina alone. .Penicillin G, ampicillin, or cefazolin are indicated for intrapartumprophylaxis of GBS colonization. Reflex susceptibilitytesting should be performed prior to use of clindamycin only on GBSisolates from penicillin-allergic women who are considered a high riskfor anaphylaxis. Treatment with vancomycin without additional testingis warranted if resistance to clindamycin is noted. Advance Directives Directive Yes / No Effective Date File Name Unknown Encounters Encounter Practice Location Reason(s) Diagnoses Date Provider Care Team Description For Visit [facility] Suprvsn of preg w March-0 Maxx Referring In Womens poor reprodctv or 2-201 Anh. Provider: tiki Garrido hx, third 8 700 Anh PO Box triPrevious Low Medical Maxx L, 1522, Transverse Center 700 Vin PerezSectionStrelionel Greene, [facility], occus B carrier 120, [place] [id number], [place] [address], complicating AKIvan, tel:[phone] weeks [phone] [place], gestation of , [place]. [id number]. tel: tel:[phone] [facility] Suprhermann of preg w Apr-2 Maxx Referring In Womens poor reprodctv or 5-201 Anh. Provider: ervin Garridoet hx, third 8 700 Anh PO Box triPrevious Low Medical Maxx L, 1522, Transverse Center 700 Vin PerezSectionSjesus [place], [facility], occus B carrier 120, [place] [id number], [facility] 120, [place] complicating Ivan [place], tel:[phone] foellsnyc61 weeks [phone] [place], gestation of , [place]. [id number]. tel: tel:[phone] [facility] Pain in right Apr-1 Maxx Referring In Womens hipSuprvsn of 8-201 Anh. Provider: Danika QUIROGA, preg w poor 8 700 Anh PO Box reprodctv or Medical Maxx L, 1522, obstet hx, third Center 700 [place], triPrevious Low , [facility] AMAN, Transverse 120, Center [id number], [id number] weeks [place], [facility] 120, [place] gestation of Ivan [place], tel:+ [phone] [place], , [place]. [id number]. tel: tel:[phone] [facility] Suprvsn of preg w Apr-0 Maxx Referring In Womens poor reprodctv or 2-201 Anh. Provider: Health KIMBER, obstet hx, third 8 700 Anh PO Box triPrevious Low Medical Maxx L, 1522, Transverse Center 700 [place], C-SectionWalter Greene [facility], r for suprvsn of 120, Center [id number], normal , [facility] 120, [place] third [id number] Ivan [place], tel:+2 weeks gestation [phone] [place], of , [place]. [id number]. tel: tel:[phone] [facility] Suprvsn of preg w Apr-0 Maxx Referring In Womens Ultrasound poor reprodctv or 2-201 Anh. Provider: Danika QUIROGA obstet hx, third 8 700 Anh PO Box triPrevious Low Medical Maxx L, 1522, Transverse Center 700 [place], C-[id number] [facility] AMAN, gestation of 120, Center [id number], [place], [facility] 120, [place] AMAN Ivan, tel:[phone] [place], , [place]. [id number]. tel: tel:[phone] [facility] Suprvsn of preg w Mar-2 Maxx Referring In Womens poor reprodctv or 1-201 Anh. Provider: Danika QUIROGA, obstet hx, third 8 700 Anh PO Box triPrevious Low Medical Maxx L, 1522, Transverse Center 700 [place], C-SectionEncmigdalia Greene [facility] AMAN, r for suprvsn of 120, Center [id number], normal , [place], [facility] 120, [place] third [id number] Ivan [place], tel:+ weeks gestation [phone] [place], of , [place]. [id number]. tel: tel: [phone] [facility] Pain in right Mar-0 Maxx Referring In Womens hipSuprvsn of 7-201 Anh. Provider: Health PA, preg w poor 8 700 Anh PO Box reprodctv or Medical Maxx L, 1522, obstet hx, third Center 700 [place], triPrevious Low , [facility], Transverse 120, Center [id number], C-SectionEncounte [facility] 120, [place] r for suprvsn of Ivan [place], tel: normal , [phone] [place], third [id number] , [place]. [id number]. weeks gestation tel: tel: of [phone] [facility] Suprvsn of preg w Maxx Referring In Womens poor reprodctv or 1-201 Anh. Provider: Health KIMBER, obstet hx, second 8 700 Anh PO Box triPrevious Low Medical Maxx L, 1522, Transverse Center 700 [place], C-[id number] weeks Dr [facility] AMAN, gestation of 120, Center , [facility] 120, [place] AMAN Ivan, tel:[phone] [place], , [place]. [id number]. tel: tel: [phone] [facility] Suprvsn of preg w Nov- Maxx Referring In Womens poor reprodctv or 4-201 Anh. Provider: Health KIMBER, obstet hx, second 8 700 Anh PO Box triPrevious Low Medical Maxx L, 1522, Transverse Center 700 [place], C-SectionEnclorie Dr [facility], r for suprvsn of 120, Center [id number], normal , [place], [facility] 120, [place] second AMANIvan, tel:+ [id number] weeks [phone] [place], gestation of , [place]. [id number]. tel: tel: [phone] [facility] Suprvsn of preg w Dec-2 Maxx Referring In Womens poor reprodctv or 7-201 Anh. Provider: aDnika QUIROGA obstet hx, second 7 700 Anh PO Box triPrevious Low Medical Maxx L, 1522, Transverse Center 700 [place], C-SectionEncounte Dr [facility] AMAN, r for suprvsn of 120, [place] [id number], normal , [place], [facility] 120, [place] second Ivan [place], tel: [id number] weeks [phone] [place], gestation of , [place]. [id number]. tel: tel:[phone] [facility] Suprvsn of preg w Dec-2 Maxx Referring In Womens Ultrasound poor reprodctv or 7-201 Anh. Provider: ervin Garridoet hx, second 7 700 Anh PO Box tri19 weeks Medical Maxx L, 1522, gestation of Center [address] [place] [address], Dr [facility], 120, [place] [id number], [facility] 120, [place] Ivan [place], tel:[phone] [place], , [place]. [id number]. tel: tel:[phone] Derek [place] Suprvsn of preg w Nov-2 Maxx Referring In Womens poor reprodctv or 9-201 Anh. Provider: Danika QUIROGA obstet hx, second 7 700 Anh PO Box triPrevious Low Medical Maxx L, 1522, Transverse Center [address] [place] [address], C-[id number] weeks Dr [facility] Sammy [place], gestation of 120, Center [id number], Ivan, [facility] 120, [place] Ivan [place], tel:[phone] [place], , [place]. [id number]. tel: tel:[phone] [facility] Previous Low Nov-0 Maxx Referring In Womens Transverse 1-201 Anh. Provider: Danika QUIROGA, C-SectionEncounte 7 700 Anh PO Box r for suprvsn of Medical Maxx L, 1522, normal , Center [address] [place] [address], first [id number] Dr [facility], weeks gestation 120, [place] [id number], of [facility] 120, [place] Ivan [place], tel: [phone] [place], , [place]. [id number]. tel: tel:+ [phone] [facility] Suprvsn of preg w Aug- Maxx Referring In Womens poor reprodctv or 1-201 Anh. Provider: Health KIMBER, obstet hx, first 7 700 Anh PO Box triPrevious Low Medical Maxx L, 1522, Transverse Center 700 [place], C-SectionEncntr , [facility], screen for 120, [place] [id number], infections w sexl [facility] 120, [place] mode of [place], Ivan, tel: transmissEncounte [phone] [place], r for screening , [place]. [id number]. for oth tel: tel: infec/parastc [phone] diseasesEncounter for suprvsn of normal , first trimesterEncounte r for screening of motherLess than 8 weeks gestation of [facility] Incomplete Aug-2 Maxx Referring In Womens spontaneous 1-201 Anh. Provider: Danika QUIROGA, without 7 700 Anh PO Box complication Medical Maxx L, 1522, Center [facility] Dr Chris, [facility], 120, [place] [id number], [facility] 120, [place] Ivan [place], tel: [phone] [place], , [place]. [id number]. tel: tel:[phone] [facility] Incomplete Aug-0 Maxx In Womens spontaneous 9-201 Anh. Health KIMBER, without 7 700 PO Box complication Medical 1522, Center Dr Chris, [facility], 120, [id number], [place], AMAN, tel:[phone] , [place]. tel: [phone] [facility] Threatened Aug-0 Maxx Referring In Womens 7-201 Anh. Provider: Danika QUIROGA, 7 700 Anh PO Box Medical Maxx L, 1522, Center [address] Dr Chris, [facility] [place], 120, Center [id number], Ivan, [facility] 120, [place] Ivan [place], tel:+ [phone] [place], , [place]. [id number]. tel: tel:[phone] [facility] Threatened Aug-0 Maxx In Womens 4-201 Anh. Health KIMBER, 7 700 PO Box Medical 1522, Center Dr Chris, [facility] [place], 120, [id number], [place], [place], tel:+ [phone] , [place]. tel: [phone] [facility] Encntr for f/u May-0 Maxx Referring In Womens exam aft trtmt 5- Anh. Provider: Danika QUIROGA, for cond oth than 7 700 Anh PO Box [facility] Medical Maxx L, 1522, Center [facility] Dr Chris, [facility] [place], 120, Center [id number], [facility], [place], tel:[phone] [place], , [place]. [id number]. tel: tel: [phone] [facility] Incomplete March-1 Maxx Referring In Womens spontaneous - Anh. Provider: Health KIMBER, with 7 700 Anh PO Box other Medical Maxx L, 1522, complications Center [facility] Dr Chris, [facility] [place], 120, Center [id number], Ivan, [facility] 120, [place] Ivan [place], tel:[phone] [place], , [place]. [id number]. tel: tel: [phone] [facility] Incomplete March-1 Maxx Referring In Womens spontaneous -201 Anh. Provider: Danika QUIROGA, with 7 700 Anh PO Box other Medical Maxx L, 1522, complications Center [facility] Dr Chris, [facility] [place], 120, Center [id number], Ivan, [facility] 120, Ivan [place], tel:[phone] [place], , [place]. [id number]. tel: tel:[phone] [facility] Incomplete May-1 Maxx Referring In Womens Ultrasound spontaneous 7-201 Anh. Provider: Danika QUIROGA, with 7 700 Anh PO Box other Medical Maxx L, 1522, complications Center 700 Dr Chris, [facility] Medical [place], 120, Center [id number], [place], [facility] 120, [place], tel: [phone] [place], , [place]. [id number]. tel: tel:[phone] [facility] Incomplete May-1 Maxx Referring In Womens spontaneous 6-201 Anh. Provider: Danika QUIROGA, with 7 700 Anh PO Box other Medical Maxx L, 1522, complications Center [facility] Dr Chris, [facility] [place], 120, Center [id number], [place], [facility] 120, Ivan [place], tel:[phone] [place], , [place]. [id number]. tel: tel:[phone] [facility] Blighted ovum and Apr-2 Maxx Referring In Womens nonhydatidiform 4-201 Anh. Provider: teodoro Garrido 7 700 Anh PO Box Medical Maxx L, 1522, Center [address], [facility] [place], 120, Center [id number], Ivan, [facility] 120, [place] Ivan [place], tel: [phone] [place], , [place]. [id number]. tel: tel:[phone] [facility] Blighted ovum and Apr-1 Maxx Referring In Womens nonhydatidiform 3-201 Anh. Provider: teodoro Garrido 7 700 Anh PO Box Medical Maxx L, 1522, Center [address], [facility] [place], 120, Center [id number], Ivan, [facility] 120, [place] Ivan [place], tel:[phone] [place], , [place]. [id number]. tel: tel:[phone] [facility] Blighted ovum and Apr-0 Maxx In Womens nonhydatidiform 7-201 Anh. Danika QUIROGA, mole 7 700 PO Box Medical 1522, Center [place], Dr [facility], 120, [id number], [place], [place], tel:+ [phone] , [place]. tel: [phone] [facility] Blighted ovum and Apr-0 Maxx Referring In Womens nonhydatidiform 6-201 Anh. Provider: Danika QUIROGA, teodoroEncounter for 7 700 Anh PO Box test, Medical Maxx L, 1522, result Center 700 [place], weeks gestation Abdullahi Greene, of 120, [place] [id number], Ivan [facility] 120, [place] Ivan [place], tel:[phone] [place], , [place]. [id number]. tel: tel: [phone] [facility] Previous Low Apr-0 Maxx Referring In Womens Ultrasound Transverse 6-201 Anh. Provider: Danika QUIROGA, C-Section 7 700 Anh PO Box state, Medical Maxx L, 1522, [id number] Center [address] [place] [address], weeks gestation Abdullahi Greene, of 120, Center [id number], Ivan [facility] 120, [place] Ivan [place], tel:+ [phone] [place], , [place]. [id number]. tel: tel: [phone] [facility] state, Mar-2 Maxx Referring In Womens incidental 9-201 Anh. Provider: Danika QUIROGA, 7 700 Anh PO Box Medical Maxx L, 1522, Center [facility] [address] Medical [place], 120, Center [id number], Ivan [facility] 120, [place] Ivan [place], tel:[phone] [place], , [place]. [id number]. tel: tel:[phone] [facility] state, Mar-2 Carr Referring In Womens incidental9 weeks 8-201 Mary. Provider: Danika QUIROGA, gestation of 7 700 Ahn PO Box Medical Maxx L, 1522, Center [address] Dr Chris, [facility] Medical [place], 120, Center [id number], Ivan, [facility] 120, [place] Ivan [place], tel:+[phone] [place], , [place]. [id number]. tel: tel:+[phone] Derek [place] Encounter for Mar-2 Maxx Referring In Womens test, 7- Anh. Provider: Danika QUIROGA, result unknown9 7 700 Anh PO Box weeks gestation Medical Maxx L, 1522, of Center [address] Dr Chris, [facility] Medical [place], 120, Center [id number], Ivan, [facility] 120, [place] Ivan [place], tel:[phone] [place], , [place]. [id number]. tel: tel:[phone] Derek [place] Encntr for physician gynecologist Edward-0 Maxx Referring In Womens exam (general) 9-201 Anh. Provider: Danika QUIROGA, (routine) w/o abn 6 700 Anh PO Box findings Medical Maxx L, 1522, Center [address] Dr Chris, [facility] Medical [place], 120, Center [id number], Ivan, [facility] 120, [place] Ivan [place], tel:[phone] [place], , [place]. [id number]. tel: tel:[phone] Derek [place] Dec- Maxx Referring In Womens 8-201 Anh. Provider: Danika QUIROGA, 5 700 Anh PO Box Medical Maxx L, 1522, Center Oz [address], [facility] Medical [place], 120, Center [id number], Ivan, [facility] 120, [place] Ivan [place], tel:+[phone] [place], , [place]. [id number]. tel: tel:[phone] [place] Oct-2 Maxx Referring In Womens 8-201 Anh. Provider: Danika QUIROGA, 4 700 Anh PO Box Medical Maxx L, 1522, Center [address] Dr Chris, [facility] Medical [place], 120, Center [id number], Abdullahi [place] 120, Ivan [place], tel: [phone] [place], , . [id number]. tel: tel: [phone] Derek [place] Sep-0 Ibeth In Womens 5-201 Janee. Health [place], 4 700 PO [facility] 1522, [place] Dr Chris, [facility] [place], 120, [id number], [place], AMAN, tel: [phone] , . tel: [phone] Family History Family Member Diagnosis Age At [...] Comments Tdap completed Source: New Immunization Record Tdap completed Source: New Immunization Record Influenza, injectable, completed Source: New Immunization Record quadrivalent, preservative free, 3 yrs or older Payers Payer name Insurance type Covered libertarian ID Authorization(s) [employer] [place] [id number] [employer] [place] [id number] [employer] [place] [id number] [employer] [place] [id number] Social History Type Description Quantity Date Captured Alcohol Use Details Caffeine Use Details combo 1 per day per day Tobacco Use Status Never smoked tobacco Smoking Status Never smoker Vital Signs Date / Height Weight BMI Pulse Blood Temperature Respiratory Body Head BMI Time: Rate Pressure Rate Surface Circumference percentile Area 215.40 36.0 118/ lbs 6 mm[Hg] 2:25 kg/m PM eter (2) Chief Complaint And Reason For Visit Unknown Chief Complaint And Reason For Visit Reason For Referral Reason For Referral Unknown Plan Of Care Date Type Action Status Appointment Leticia Judd BOOKED Appointment Leticia Judd - RC/S, PPTL BOOKED Future Order: Radiology Order Transvaginal Pelvic Ultrasound Ordered ([id number]) Future Order: Radiology Order Complete OB Ultrasound > 14 Ordered Weeks ([id number]) Future Order: Radiology Order Ultrasound OB Follow-up ([id number]) Ordered Future Order: Radiology Order Ultrasound < 14 wks ([id number]) Ordered Date Type Problem Goal Intervention Status [...]
[2018-03-24] MEDS: LR 1,000 ML IV SCH ×2 (06:00→06:46)
[2018-03-24 06:10] VITALS: BMI 37.0
[2018-03-24] MEDS ORDERED: NALOXONE 2 MG/2 ML INJECTION PFS IVP PRN (06:59)
[2018-03-24] MEDS ORDERED: NALBUPHINE 10 MG/ML INJECTION IVP PRN (06:59)
[2018-03-24] MEDS ORDERED: ONDANSETRON 4 MG/2 ML INJECTION IVP PRN (06:59)
--- NOTE | 2018-03-24 06:59 | Anesthesia Preoperative Report ---
Anesthesia Epidural/Spinal Rec - Date and Time Date: 03/24/18 Preoperative Diagnosis: Term C Section Procedure: Plan: Spinal - Vital Signs Vital Signs: Temperature 97.7 F 03/24/18 06:03 Pulse Rate 60 03/24/18 06:03 Respiratory Rate 16 03/24/18 06:03 Blood Pressure 116/65 03/24/18 06:03 Pulse Oximetry 98 03/24/18 06:03 /Para: P:1 - Medictaions & Allergies Inpatient Medications: Current Medications Lactated Ringer's (Lactated Ringers) 1,000 mls @ 150 mls/hr IV .[id number] DONELL Last Admin: 03/24/18 06:00 Dose: 150 mls/hr Allergies/Adverse Reactions: Allergies Allergy/AdvReac Type Severity Reaction Status Date / Time No Known Allergies Allergy Unverified 03/31/17 11:03 - Home Medications Home Medications: Home Medications Medication Instructions Recorded Confirmed Type Vitamins 03/15/18 History Tums 03/15/18 History - Medical History Respiratory: DENIES: Asthma, Bronchitis, Chronic Obstructive Pulmonary Disease (COPD), Dyspnea, Orthopnea, Pulmonary Embolism, Pneumonia, Upper Respiratory Infection, Pulmonary Edema, Sleep Apnea, Tuberculosis, Other Cardiovascular: DENIES: Abnormal EKG, Angina, Arrhythmia, Congestive Heart Failure, Coronary Artery Disease, Heart Murmur, Hypertension, Hypotension, High Cholesterol, Myocardial Infarction, Rheumatic Fever, Valvular Heart Disease, Other Gastrointestional: DENIES: Obstructive Bowel, Hepatitis, Cirrhosis, Nausea or Vomiting Present, Gastroesophageal Reflux Disease, Gastrointestinal Bleeding, Hiatal Hernia, Ulcer , Morbid Obesity, Other Neuro/Musculoskeletal: Denies: Back Problems, Cerebrovascular Accident, Depression, Headaches, Loss of Consciousness, Muscle Weakness, Neuromuscular Disorder, Paralysis, Paresthesia, Syncope, Seizures, Other Renal/Endocrine: DENIES: Diabetes Mellitus Type 1, Diabetes Mellitus Type 2, Renal Failure, Dialysis, Thyroid Disease, Weight Loss, Weight Gain, Other Other History: Reports: Now - Surgical History Reproductive Surgery/Treatment: Reports: Section, Dilation and Curettage (with 2nd pg.) Anesthesia Reactions: None Hx Family Anesthesia Reaction: No History of Motion Sickness: No - Social History Smoking Status: Never smoker Second Hand Exposure: No Substance Use Type: does not use Alcohol Intake Frequency: does not drink Hx Chewing Tobacco Use: No - Pertinent Findings Lab Data: CBC and BMP 03/24/18 05:58 - Physical Exam Respiratory Exam: lungs clear, bilateral breath sounds equal Cardiovascular Exam: regular rate and rhythm, no murmur - Airway Assessment Mallampati Score: I TMD: 3 Fingerbreadths Neck Extension: good Overall Assessment: no airway concerns - ASA ASA Score: 2 - Discussion Discussion: Discussed risks/options/alternatives of anesthesia and questions answered. Patient consents. Nursing pain assessment noted. Anesthesia Discussion: spouse Attestation Statement: Prior to the delivery of any anesthetic medication, I examined the patient, developed the plan, obtained the patient's consent and discussed the risk and benefits of the procedure with the patient/guardian.
[2018-03-24] MEDS ORDERED: BUPIVACAINE 0.75%/DEXTROSE 8.5% SPINAL 2 ML AMPULE IJ ONE (07:09)
[2018-03-24] MEDS ORDERED: FentaNYL 250 MCG/5 ML INJECTION ONE (07:10)
[2018-03-24] MEDS ORDERED: MORPHINE SULFATE PF 5mg/10ml INJ (Duramorph) ONE (07:10)
[2018-03-24] MEDS ORDERED: LIDOCAINE 1% (10mg/ml) 30ml SDV INJ ONE (07:12)
[2018-03-24] MEDS ORDERED: OXYTOCIN BOLUS BAG 30 UNIT/500 ML ML IV SCH (08:15)
[2018-03-24] MEDS: D5LR 1,000 ML IV SCH ×2 (08:33→23:30)
[2018-03-24] MEDS ORDERED: OXYTOCIN DRIP 30 UNIT/500 ML ML IV SCH (09:49)
[2018-03-24] MEDS ORDERED: SIMETHICONE 80 MG CHEWABLE TABLET PO PRN (09:49)
[2018-03-24] MEDS ORDERED: ACETAMINOPHEN 500 MG TABLET PO PRN (09:49)
[2018-03-24] MEDS ORDERED: METOCLOPRAMIDE 10mg/2ml INJECTION IVP PRN (09:49)
[2018-03-24] MEDS ORDERED: HYDROCORTISONE 2.5% CREAM 30gm RECTALLY PRN (09:49)
[2018-03-24] MEDS ORDERED: DiphenhydrAMINE 25 MG CAPSULE PO PRN (09:49)
[2018-03-24] MEDS ORDERED: CALCIUM CARBONATE Chewable 500mg TABLET PO PRN (09:49)
[2018-03-24] MEDS: IBUPROFEN 800 MG TABLET PO SCH ×2 (11:03→20:48)
[2018-03-24] MEDS: DOCUSATE CALCIUM 240 MG CAPSULE PO SCH (11:27)
[2018-03-24] MEDS: SIMETHICONE 80 MG CHEWABLE TABLET PO SCH ×3 (11:27→23:29)
--- NOTE | 2018-03-24 12:54 | Operative Note ---
DATE OF OPERATION 03/24/2018 PREOPERATIVE DIAGNOSIS 1. Term , previous . 2. Undesired fertility. 3. Suspected macrosomia. POSTOPERATIVE DIAGNOSIS 1. Term , previous . 2. Undesired fertility. 3. Suspected macrosomia. 4. Delivered. PROCEDURE Repeat low transverse section, bilateral tubal ligation ( modified [place]) SURGEON Anh Lilly MD CROZE MACHINE OPERATOR Tito Sutton, Or Scrub Tech ANESTHESIA Combo spinal epidural STROBOROMA OPERATOR Lalo Rodney CRNA EBL 800 mL DESCRIPTION OF PROCEDURE Ms. Judd was brought to the OR and given regional analgesia to good effect. She was then placed on the OR table in the comfortable supine position with left lateral displacement. A Ferguson catheter was placed to dependent drain. The abdomen was prepped and draped in the usual sterile fashion. A Pfannenstiel skin incision was made through the patient's prior scar. This was carried down to fascia. Fascia was incised transversely then tented up. Fascia was bluntly and sharply dissected free of rectus muscles. Rectus muscles were already fairly divided. Peritoneum was tented up and entered sharply, then extended vertically. The bladder blade was inserted. The bladder was noted to be well below our area of operation. A low transverse uterine incision was made with a sharp knife. There was copious clear amniotic fluid. Baby was in the vertex presentation and difficult to get through the incision. We placed the vertex blade under the head, elevated it and then delivered the baby in total. Baby was bulb suctioned as soon as the head was delivered and then further bulb suctioned upon complete delivery. Cord was doubly clamped and cut and the baby was given to Dr. Marinelli and his team for care. This is a liveborn male with Apgars of 7/9/9. He weighed 9 pounds, 2.7 ounces. The placenta was then expressed, intact. It had a normal configuration and normal-appearing three-vessel cord. The uterus was exteriorized and the cavity swept clear of membranes. We then reapproximated the myometrial incision with a running locking 0 Monocryl. There was an area at the right edge of it that was not hemostatic. This was easily controlled with a [id number]-hy-dtgla suture of 0 Monocryl. We inspected carefully. Hemostasis remained under good control. We inspected after every incision throughout the procedure, making sure hemostasis remained under good control throughout the remainder of the case. We then turned our attention to the tubal ligation. The right fallopian tube was grasped near its midpoint with a Jose Miguel clamp. A knuckle of tube was isolated and ligated with a 2-0 chromic. The mesosalpinx was then pierced with a clamp and a simple ligature of 2-0 silk was used to ligate either side at the isolated knuckle. We then cut the isolated section free and sent it to Pathology for inspection. Stumps were carefully observed and found to be hemostatic. We repeated the procedure in the exact same fashion on the left fallopian tube. We then reinspected myometrial incision and returned the uterus to the abdominal cavity. We swept the gross blood clots out of the abdomen then reapproximated the peritoneum with running nonlocking 2-0 Vicryl. After the peritoneum was closed, we used a [id number] suture of 2-0 chromic to reapproximate the linea albicans of the rectus muscles in the midline above the pubic bone, then we reapproximated the fascia with a running nonlocking 0 Vicryl. Skin edges were reapproximated with a subcuticular style 3-0 undyed Vicryl. The wound was dressed with Steri- Strips and a sterile dressing. Counts were correct postoperatively x2. The urine remained clear and free-flowing throughout the procedure. Ms. Judd was then transferred to recovery in stable condition. DEVON
[2018-03-24] MEDS: HYDROCODONE/APAP 5mg/325mg TABLET PO PRN (20:48)
[2018-03-25] MEDS: HYDROCODONE/APAP 5mg/325mg TABLET PO PRN ×5 (05:10→21:19)
[2018-03-25] MEDS: IBUPROFEN 800 MG TABLET PO SCH ×3 (05:24→21:19)
--- NOTE | 2018-03-25 07:51 | OB/GYN Progress Note ---
OB-PP Progress Note - General PPD1 POD:: POD1 Maternal Group B Strep: Positive Maternal blood type: A+ Maternal Rubella Status: Immune - Subjective Date: 03/25/18 Lochia: Minimal Pain: controlled Voiding: voiding Nausea or Vomiting Present: No - Objective Vital Signs: Last Vital Signs Temp 98.6 F 03/25/18 05:03 Pulse 67 03/25/18 05:03 Resp 16 03/25/18 05:03 BP 105/55 03/25/18 05:03 Pulse Ox 99 03/25/18 05:03 Urine Output: good General: alert and oriented Cardiovascular: regular rate,rhythm Respiratory: non-labored Abdomen: fundus firm, non-tender Incision: normal, dry, intact Extremities: non-tender Edema: none Laboratory: Laboratory Results - last 24 hr 03/24/18 14:00 WBC 11.5 H D RBC 3.46 L Hgb 10.1 L D Hct 30.2 L D MCV 87.3 MCH 29.2 MCHC 33.4 RDW Std Deviation 40.0 Plt Count 161 MPV 11.3 - Assessment Assessment: SP, Repeat C/S - Plan Plan: routine care
[2018-03-25] MEDS: DOCUSATE CALCIUM 240 MG CAPSULE PO SCH (08:31)
[2018-03-25] MEDS: SIMETHICONE 80 MG CHEWABLE TABLET PO SCH ×5 (08:31→21:20)
[2018-03-25 21:52] VITALS: O2SAT 98
[2018-03-26] MEDS: HYDROCODONE/APAP 5mg/325mg TABLET PO PRN ×3 (01:49→11:54)
[2018-03-26] MEDS: SIMETHICONE 80 MG CHEWABLE TABLET PO SCH ×3 (01:50→14:20)
[2018-03-26] MEDS: IBUPROFEN 800 MG TABLET PO SCH ×2 (06:22→14:20)
[2018-03-26] MEDS: DOCUSATE CALCIUM 240 MG CAPSULE PO SCH (11:55)
[2018-03-26 14:17] VITALS: BP 119/72; PULSE 78; RESP 17; TEMP 98.6
--- NOTE | 2018-03-26 14:33 | OB/GYN Progress Note ---
OB-PP Progress Note - General PPD2 POD:: POD2 Maternal Group B Strep: Positive Maternal blood type: A+ Maternal Rubella Status: Immune - Subjective Date: 03/26/18 Lochia: Minimal Pain: controlled Voiding: voiding Nausea or Vomiting Present: No - Objective Vital Signs: Last Vital Signs Temp 98.6 F 03/26/18 13:00 Pulse 78 03/26/18 13:00 Resp 17 03/26/18 13:00 BP 119/72 03/26/18 13:00 Pulse Ox 98 03/25/18 21:00 Urine Output: good General: alert and oriented Cardiovascular: regular rate,rhythm Respiratory: non-labored Abdomen: fundus firm, non-tender Incision: normal Extremities: non-tender Edema: none - Assessment Assessment: SP, Repeat C/S - Plan Plan: routine care, discharge home
== END 2018-03-26 15:00 | disposition home or self-care (01) | DRG 765 ==
LOC: MC 05:36
PROVIDERS: ADMIT Obstetrics & Gynecology; ATTEND Obstetrics & Gynecology